=== PATIENT | female | born 1970 | race Caucasian/White ===

== ENCOUNTER 2016-03-27 10:50 | Emergency (ER) | payer OTHER ==
[~2016-03-27] VITALS: Ht 167.6 cm; Wt 75.0 kg
[~2016-03-27 10:50] MED LIST: ALBUAER19 INH; ARFO15NE NEB; FLUT1INH; IPRASOL34 INH; MEPO1INJ INJ; PRED20TA PO
[2016-03-27 10:57] VITALS: TEMP 36.9; Ht 167.6 cm; Wt 75.0 kg
[2016-03-27 11:08] VITALS: O2SAT 92
[2016-03-27] MEDS ORDERED: DEXAMETHASONE SOD INJ 10 MG/ML VIAL IM STA (11:23)
[2016-03-27] MEDS ORDERED: ALBUT/IPRATROP 3MG/0.5MG NEB 3 ML VIAL INH STA (11:23)
--- NOTE | 2016-03-27 11:34 | EMERGENCY ROOM VISIT NOTE ---
History First contact with patient: 11:11 Chief Complaint: RESPIRATORY PROBLEMS Stated Complaint: BREATHING History of Present Illness The patient is a 45 year old female who presents to the Emergency Room via private vehicle accompanied by with complaints of "breathing". The patient states that she has noticed since she has been receiving the nucala injection, which began in November for her asthma, she has experienced rebound asthmatic exacerbations 4 days status post injection. She states that in January 4 days after the injection she had to increase her prednisone to 60 mg daily to help control her asthma. She states she had the exact same reaction in February and this month, indicating she had the injection March 21 in [place]. She notes that she began to experience symptoms by Monday, which was 2 days ago. The other 2 exacerbations in January and February she was able to control by starting steroids immediately but this time decided to wait and now believe she needs a breathing treatment. She notes that she does not want any x -rays, imaging, lab work, IV, EKG or surveillance system monitor. She indicates that she is self-pay and believes she only needs the steroid injection and breathing treatment. She states she has had a thorough workup in the past which very expensive. She follows with Dr. Arzate and Dr. Philippe. She denies any hives , itching, throat swelling, chest pain or recent trauma. Review of Systems A complete 6-point Review of Systems was discussed with the patient, with pertinent positives and negatives listed in the History of Present Illness. All remaining Review of Systems questions can be considered negative unless otherwise specified. Past Medical/Surgical History Medical Problems: (1) ACUTE RESPIRATORY FAILURE (2) ASTHMA W STATUS ASTHMAT (3) Echocardiogram (4) FX DISTAL RADIUS NEC-CL (5) Pericardial effusion (6) Pneumonia (7) Tonsillectomy Family History No significant family history at this time. Social History Smoking Status: Never Smoker Alcohol Use: none Drug Use: none Marital Status: Housing Status: lives with family Occupation Status: other Current/Historical Medications Scheduled Arformoterol Tartrate (Brovana), 1 VIAL NEB BID Mepolizumab (Nucala), 100 MG INJ MONTHLY Prednisone (Prednisone), 1 TAB PO DAILY Scheduled PRN Ipratropium-Albuterol (Duoneb), 1 TREATMENT INH Q4H PRN for Shortness of Breath Allergies Coded Allergies: Azithromycin (Verified Adverse Reaction, Intermediate, RESTLESS; JITTERY, 03/27/16) HAS USED IT SINCE WITH NO REACTION Physical Exam Vital Signs Date Time Temp Pulse Resp B/P Pulse Ox O2 Delivery O2 Flow Rate FiO2 03/27/16 12:43 133 22 114/76 97 Room Air 03/27/16 11:37 91 16 90 Room Air 03/27/16 11:08 92 Room Air 03/27/16 11:08 92 Room Air 03/27/16 10:57 36.9 100 16 105/69 91 Room Air Physical Exam VITAL SIGNS - Vital signs and nursing notes were reviewed. Patient is afebrile , normotensive, heart rate of 100 bpm and is saturating on room air at 91%. GENERAL -45-year-old female appearing her stated age who is in no acute distress. Communicates well with provider and answers questions appropriately. SKIN - Without rashes. HEAD - NC/AT. MOUTH/OROPHARYNX - Without perioral cyanosis. LUNGS - Chest wall symmetric without accessory muscle use, intercostals retractions, or central cyanosis. There is wheezing noted bilaterally. No focal consolidation noted. There is moderate air exchange. CARDIAC - RRR with S1/S2. No murmur, rubs, or gallops appreciated. Medical Decision & Procedures Medications Administered Medications (Trade) Dose Ordered Sig/Fareed Route Start Time Stop Time Status Last Admin Dose Admin Albuterol/ Ipratropium (Duoneb) 12 ml ONE STAT INH 03/27/16 11:23 03/27/16 11:27 DC 03/27/16 11:37 12 ML Dexamethasone Sodium Phosphate (Decadron Inj) 10 mg NOW STAT IM 03/27/16 11:23 03/27/16 11:27 DC 03/27/16 11:31 10 MG Medical Decision Patient was seen and evaluated as above. Patient was very nice and noted that she would not like any imaging, lab work, IV, EKG or surveillance system monitor performed noting that she is self-pay and this had all this workup in the past. I fully informed her that we do all of those to look for life-threatening causes such as pulmonary embolism and heart causes among others. They verbalized understanding and noted that they would like the breathing treatment and perhaps a steroid injection instead of an IV. I felt this was reasonable as I had treated her before and found good result with the steroid and the breathing treatment. She was saturating in the low 90s and was given oxygen. She was given an hour-long DuoNeb treatment. She was found to be tachycardic but notes this happens every time she receives his treatment. Her oxygen saturation had increased. She was still on oxygen after the breathing treatment and I decreased this and noted that she was between 90 and 94% on room air. Patient states that she typically is at 94%. The patient states that she feels better since receiving treatment. Repeat auscultation reveals improvement of lung sounds. Patient seemed happy with plan of care felt stable for discharge. I do believe this is reasonable. She has ample supply of prednisone and rescue inhaler. She is to call Dr. Philippe, auctioneer art in [place] first thing tomorrow morning to schedule follow-up. This is where she receives injections of nucala. The patient was educated upon worrisome symptoms which to return, had questions answered prior to discharge and was discharged home in good condition. In the evaluation treatment this patient following differential diagnoses were entertained: Asthma exacerbation, COPD, pneumonia, bronchitis, influenza, pulmonary embolism, myocardial infarction, among others. Impression Primary Impression: Acute asthma exacerbation Departure Information Dispostion Home / Self-Care Condition GOOD Referrals Saud Tony MD (PCP) Patient Instructions My [facility] Additional Instructions You were seen in the emergency Department for an asthma exacerbation. You were given a DuoNeb treatment here. Please continue your regular prescribed medications. Please take the prednisone as we discussed. Please use your breathing treatment albuterol inhaler as prescribed. Please call your asthma specialist first thing tomorrow morning to schedule follow-up. Please return to the emergency department with any new/concerning symptoms. Problem Qualifiers Primary Impression: Acute asthma exacerbation Asthma severity: severe persistent Qualified Codes: J45.51 - Severe persistent asthma with (acute) exacerbation
[2016-03-27 11:37] VITALS: PULSE 91; O2SAT 90
[2016-03-27 12:43] VITALS: BP 114/76; PULSE 133; O2SAT 97
[2016-06-18] MEDS ORDERED: ZTHM250 PO (10:44)
== END 2016-03-27 13:50 | disposition home or self-care (01) ==
LOC: C.EDB 10:55
DX: J45.901 Unspecified asthma with (acute) exacerbation (principal); Z87.81 Personal history of (healed) traumatic fracture; Z79.899 Other long term (current) drug therapy; Z88.1 Allergy status to other antibiotic agents

== ENCOUNTER 2016-06-14 05:12 | Inpatient (IN) | payer OTHER ==
[~2016-06-14] VITALS: Ht 165.1 cm; Wt 65.3 kg
[2016-06-14] VITALS (21 sets, daily range): BP systolic 96–118; BP diastolic 59–78; PULSE 96–126; TEMP 36.5–36.7; O2SAT 92–100; Ht 165.1 cm; Wt 65.3 kg
[~2016-06-14 05:12] MED LIST changes: -ALBUAER19 INH; -FLUT1INH
[2016-06-14] MEDS ORDERED: ALBUT/IPRATROP 3MG/0.5MG NEB 3 ML VIAL INH ONE (05:30)
[2016-06-14] MEDS ORDERED: DEXAMETHASONE SOD INJ 4 MG/ML VIAL IM STA (05:30)
[2016-06-14] MEDS ORDERED: DEXAMETHASONE SOD INJ 10 MG/ML VIAL ONE (05:35)
[2016-06-14 07:40] LABS: COMPLETE YES; HEMATOCRIT 41.7 % (37-47); IG% 0.2 %; LYMPH % 9.6 %; LYMPH ABS # 0.55 K/uL (1.2-3.4); MEAN CELL VOLUME 82.7 fL (80-100); MEAN CORPUSCULAR HEMOGLOBIN 27.4 pg (25-34); MEAN CORPUSCULAR HGB CONC 33.1 g/dl (32-36); MEAN PLATELET VOLUME 10.5 fL (7.4-10.4); MONO % 0.9 %; NEUT % 89.3 %; PLATELET COUNT 242 K/uL (130-400); RED BLOOD COUNT 5.04 M/uL (4.2-5.4); WHITE BLOOD COUNT 5.73 K/uL (4.8-10.8)
[2016-06-14 07:54] LABS: ARTERIAL BLD GAS O2 SATURATION 95.1 % (90-95); ARTERIAL BLOOD GAS BASE EXCESS -0.6 mEq/L (-9-1.8); ARTERIAL BLOOD GAS HCO3 22 mmol/L (19-24); ARTERIAL BLOOD GAS PO2 74 mm/Hg (80-95); ARTERIAL BLOOD GAS pH 7.46 (7.35-7.45)
[2016-06-14 07:59] LABS: ALT/SGPT 23 U/L (12-78); AST/SGOT 7 U/L (15-37); BLOOD UREA NITROGEN 10 mg/dl (7-18); BUN/CREATININE RATIO 11.9 (10-20); CALCIUM 9.3 mg/dl (8.5-10.1); CARBON DIOXIDE 24 mmol/L (21-32); CHLORIDE 111 mmol/L (98-107); CREATININE 0.81 mg/dl (0.60-1.20); GLUCOSE 141 mg/dl (70-99); POTASSIUM 3.8 mmol/L (3.5-5.1); SODIUM 144 mmol/L (136-145)
[2016-06-14 08:02] LABS: ALLEN TEST POS (POS); O2 ADMINISTRATION 1.5L
[2016-06-14 08:04] LABS: ALB/GLOB RATIO 1.1 (0.9-2); ALKALINE PHOSPHATASE 42 U/L (45-117)
--- NOTE | 2016-06-14 08:09 | DIAGNOSTIC IMAGING REPORT ---
CHEST 2 VIEWS ROUTINE CLINICAL HISTORY: Shortness of breath. Asthma exacerbation. COMPARISON STUDY: Chest radiograph December 04, 2015. FINDINGS: Pectus excavatum deformity is again noted. There is no pneumothorax or pleural effusion. Cardiomediastinal silhouette is stable. There is no evidence of pulmonary edema. A 1.7 cm nodular density projects over the right lower lung. There are several old right rib fractures. IMPRESSION: 1. 1.7 cm nodular density projecting over the right lower lung. This could reflect summation artifact, minimal airspace disease, a pulmonary nodule or rib fracture. Follow-up PA and shallow oblique radiographs of the chest in one month are recommended to ensure resolution. 2. Otherwise, unchanged appearance of the chest. Electronically signed by: Michael Stack M.D. 06/14/2016 8:07 AM Dictated Date/Time: 06/14/2016 8:04 AM
[2016-06-14] MEDS ORDERED: ALUMINUM/MAGNESIUM/SIMETH (MAALOX MAX) 30 ML UDC PO PRN (09:00)
[2016-06-14] MEDS ORDERED: ONDANSETRON INJ 2 MG/ML 2 ML VIAL IV PRN (09:00)
[2016-06-14] MEDS ORDERED: ACETAMINOPHEN 325 MG TAB PO PRN (09:00)
[2016-06-14] MEDS ORDERED: MAGNESIUM HYDROXIDE SUSP 30 ML UDC PO PRN (09:00)
[2016-06-14] MEDS ORDERED: KETOROLAC TROMETHAMINE 15 MG/ML VIAL IV ONE (09:15)
--- NOTE | 2016-06-14 09:23 | History and Physical ---
History & Physical Date & Time of Service: June 14, 2016 at 09:17 Chief Complaint: Breazing Primary Care Physician: Saud Tony MD History of Present Illness Source: patient, spouse Ms. Erazo is a 46 y/o female with PMHx of Severe Uncontrolled Asthma and Allergic Rhinitis who presents to the ED c/o SOB that started yesterday. She reports on Monday she developed nasal congestion and sneezing. She states her allergic rhinitis is a common culprit for her asthma exacerbations. As the symptoms progressed, her shortness of breath intensified. The shortness of breath was worse yesterday and she got no relief with multiple uses of inhalers , nebulizers, and 80 mg of prednisone. She reports associated auditory wheezing. Also complains of a cough that is largely unproductive. Occasionally will get thick green sputum but this is rare. Associated pleuritic chest pain that is common with her asthma exacerbations but is more uncomfortable at this time. She reports her last asthma exacerbation was approximately 1-1/2 weeks ago however this responded to her home medications. She follows with Dr. Tony and reports 3 bronchoscopies in the past 4 years. To her knowledge no abnormal findings seen on these procedures. Her last bronchoscopy was in January 2016. She has never required intubation with her asthma exacerbations. She reports a long history of uncontrolled asthma with multiple medication trials. She feels that nothing has completely helped her asthma long-term. Has recently stopped Nucala as she reports an allergic reaction requiring hospitalization in [place]. In the ED, she received Decadron 10 mg 1 and DuoNeb nebulizer with reported no relief. She was initially saturating on room air adequately with one reading at 88 which responded to 2 L nasal cannula. She is tachycardic with EKG reading normal sinus rhythm. Respirations ranging from 20-28. ABG suggest respiratory alkalosis with a pH of 7.46, PCO2 32, and HCO3 22. CXR is unremarkable for consolidation. Due to no response with steroids and breathing treatment she will be placed in the ICU at this time. Past Medical/Surgical History Medical Problems: (1) Acute respiratory failure Status: Resolved (2) ASTHMA W STATUS ASTHMAT Status: Chronic (3) Echocardiogram Status: Resolved (4) FX DISTAL RADIUS NEC-CL Status: Resolved (5) Pericardial effusion Status: Chronic (6) Pneumonia Status: Chronic (7) Tonsillectomy Status: Resolved Family History Diabetes mellitus Heart Disease Social History Smoking Status: Never Smoker Smokeless Tobacco Use: No Alcohol Use: none Drug Use: none Marital Status: Housing status: lives with significant other Occupational Status: other Immunizations History of Influenza Vaccine: No History of Tetanus Vaccine?: 2WKS History of Pneumococcal: No History of Hepatitis B Vaccine: No Multi-Drug Resistant Organisms History of MDRO: No Allergies Coded Allergies: Eggs or Egg-derived Products (Verified Allergy, Severe, Allergy testing with high reactivity in 2012, 06/14/16) Patient notes that she eats eggs Mepolizumab (Verified Allergy, Severe, Hives / paroxysmal bronchospasm, 06/14/16) Lactose (Verified Allergy, Mild, Allergy testing in 2012, 06/14/16) Patient avoids dairy products Mouse Protein (Verified Allergy, Unknown, RESPIRATORY DISTRESS, 06/14/16) Sorbitan (Verified Allergy, Unknown, RESPIRATORY DISTRESS, 06/14/16) Home Medications Scheduled Arformoterol Tartrate (Brovana), 1 VIAL NEB BID Prednisone (Prednisone), 1 TAB PO DAILY Scheduled PRN Ipratropium-Albuterol (Duoneb), 1 TREATMENT INH Q4H PRN for Shortness of Breath Review of Systems Constitutional: + chills, + fatigue, No fever Eyes: No worsening of vision ENT: + nasal symptoms, No sore throat, No trouble swallowing Respiratory: + cough, + shortness of breath, + sputum (rare but intermittently productive of green sputum), + wheezing Cardiovascular: + chest pain Abdomen: No constipation, No diarrhea, No nausea, No pain, No vomiting Musculoskeletal: No calf pain, No joint pain, No swelling Genitourinary - Female: No dysuria Hematologic / Lymphatic: No abnormal bleeding/bruising, No clotting problems Integumentary: No rash Physical Exam Vital Signs Date Time Temp Pulse Resp B/P Pulse Ox O2 Delivery O2 Flow Rate FiO2 06/14/16 08:20 94 Nasal Cannula 2.0 06/14/16 08:06 119 20 95/55 94 Nasal Cannula 2.0 06/14/16 07:12 123 111/64 88 Room Air 06/14/16 06:44 147 28 111/64 95 Room Air 06/14/16 05:39 109 16 92 Room Air 06/14/16 05:35 102 06/14/16 05:30 93 Room Air 06/14/16 05:27 93 Room Air 06/14/16 05:20 36.7 100 22 97/69 92 Room Air General Appearance: WD/WN, + mild distress (anxious appearing; ill-appearing) Head: normocephalic, atraumatic Eyes: sclerae normal ENT: hearing grossly normal Neck: supple, no JVD, trachea midline Respiratory/Chest: no respiratory distress, no accessory muscle use, + wheezing (inspiratory and expiratory) Cardiovascular: no gallop, no murmur, + tachycardia Abdomen/GI: normal bowel sounds, non tender, soft Back: no CVA tenderness, + pertinent finding (superficial scratch-like lacerations to upper back) Extremities/Musculoskelatal: no calf tenderness, no pedal edema Neurologic/Psych: alert, oriented x 3 Skin: normal color, warm/dry, + pallor Diagnostics Laboratory Results Results Past 24 Hours Test 06/14/16 07:25 06/14/16 07:30 Range/Units Arterial Blood pH 7.46 7.35-7.45 Arterial Blood Partial Pressure CO2 32 35-46 mmHg Arterial Blood Partial Pressure O2 74 80-95 mm/Hg Arterial Blood HCO3 22 19-24 mmol/L Arterial Blood Oxygen Saturation 95.1 90-95 % Arterial Blood Base Excess -0.6 -9-1.8 mEq/L Arterial Blood Gas Delivery 1.5L Km Test POS POS White Blood Count 5.73 4.8-10.8 K/uL Red Blood Count 5.04 4.2-5.4 M/uL Hemoglobin 13.8 12.0-16.0 g/dL Hematocrit 41.7 37-47 % Mean Corpuscular Volume 82.7 80-100 fL Mean Corpuscular Hemoglobin 27.4 25-34 pg Mean Corpuscular Hemoglobin Concent 33.1 32-36 g/dl Platelet Count 242 130-400 K/uL Mean Platelet Volume 10.5 7.4-10.4 fL Neutrophils (%) (Auto) 89.3 % Lymphocytes (%) (Auto) 9.6 % Monocytes (%) (Auto) 0.9 % Eosinophils (%) (Auto) 0.0 % Basophils (%) (Auto) 0.0 % Neutrophils # (Auto) 5.12 1.4-6.5 K/uL Lymphocytes # (Auto) 0.55 1.2-3.4 K/uL Monocytes # (Auto) 0.05 0.11-0.59 K/uL Eosinophils # (Auto) 0.00 0-0.5 K/uL Basophils # (Auto) 0.00 0-0.2 K/uL RDW Standard Deviation 46.5 36.4-46.3 fL RDW Coefficient of Variation 15.3 11.5-14.5 % Immature Granulocyte % (Auto) 0.2 % Immature Granulocyte # (Auto) 0.01 0.00-0.02 K/uL Sodium Level 144 136-145 mmol/L Potassium Level 3.8 3.5-5.1 mmol/L Chloride Level 111 98-107 mmol/L Carbon Dioxide Level 24 21-32 mmol/L Anion Gap 9.0 3-11 mmol/L Blood Urea Nitrogen 10 7-18 mg/dl Creatinine 0.81 0.60-1.20 mg/dl Estimated GFR () 101.7 Estimated GFR (Non- 87.7 BUN/Creatinine Ratio 11.9 10-20 Random Glucose 141 70-99 mg/dl Calcium Level 9.3 8.5-10.1 mg/dl Total Bilirubin 0.5 0.2-1 mg/dl Aspartate Amino Transf (AST/SGOT) 7 15-37 U/L Alanine Aminotransferase (ALT/SGPT) 23 12-78 U/L Alkaline Phosphatase 42 45-117 U/L Troponin I < 0.015 0-0.045 ng/ml Total Protein 7.5 6.4-8.2 gm/dl Albumin 4.0 3.4-5.0 gm/dl Globulin 3.5 2.5-4.0 gm/dl Albumin/Globulin Ratio 1.1 0.9-2 Diagnostic Radiology CHEST 2 VIEWS ROUTINE CLINICAL HISTORY: Shortness of breath. Asthma exacerbation. COMPARISON STUDY: Chest radiograph December 04, 2015. FINDINGS: Pectus excavatum deformity is again noted. There is no pneumothorax or pleural effusion. Cardiomediastinal silhouette is stable. There is no evidence of pulmonary edema. A 1.7 cm nodular density projects over the right lower lung. There are several old right rib fractures. IMPRESSION: 1. 1.7 cm nodular density projecting over the right lower lung. This could reflect summation artifact, minimal airspace disease, a pulmonary nodule or rib fracture. Follow-up PA and shallow oblique radiographs of the chest in one month are recommended to ensure resolution. 2. Otherwise, unchanged appearance of the chest. EKG Sinus tachycardia Biatrial enlargement Rightward axis Possible Inferior infarct , age undetermined Cannot rule out Anterior infarct , age undetermined Abnormal ECG When compared with ECG of 04-DEC-2015 12:24, No significant change was found Impression Assessment and Plan Ms. Erazo is a 46 y/o female with PMHx of Severe Uncontrolled Asthma and Allergic Rhinitis who presents to the ED c/o SOB that started yesterday. She appears in respiratory alkalosis from asthma exacerbation Acute Respiratory Failure due to Asthma Exacerbation: Never Required Intubation in the Past for Exacerbations - Reporting no relief with Decadron 10 mg and Duonebs - ABG appears to have respiratory alkalosis - pH 7.46, pCO2 32, and HCO3 22 - CT Chest R/O PE - unlikely PE but pleuritic chest pain increased than normal with exacerbations as well can better visualize lung degroot - Will obtain another troponin to R/O cardiac component - Decadron 8 mg IV Q8H - Toradol 15 mg IV x 1 dose for pleuritic CP - Xopenex and Atrovent Q6H and Q2H - as patient is tachycardic - Hold home medications at this time during asthma exacerbation - Consult [employer] - appreciate co-management - discussed with Parish Caro PA-C - as she responds to treatment can transfer in house - Consult Pulmonology - discussed case with Mor Lindsey PA-C - patient follows with Dr. Tony DVT Prophylaxis: Lovenox 40 mg SC daily; REGAN/SCDs Code Status: FULL RESUSCITATION Level of Care Critical Care Advanced Directives Existing Living Will: No Existing Power of It Programmer: No Resuscitation Status FULL RESUSCITATION VTE Prophylaxis VTE Risk Assessment Done? Y/N: Yes Risk Level: Moderate Given or contraindicated: Enoxaparin (Lovenox)SQ, T.E.D. Stockings, SCD's
[2016-06-14] MEDS ORDERED: KETOROLAC TROMETHAMINE 30 MG/ML VIAL ONE (09:35)
[2016-06-14] MEDS ORDERED: KETOROLAC TROMETHAMINE 15 MG/ML VIAL IV PRN (09:45)
[2016-06-14] MEDS: LEVALBUTEROL 1.25MG/0.5ML NEB INH SCH ×3 (09:46→19:23)
[2016-06-14] MEDS: IPRATROPIUM BROMIDE NEB SOLN 0.02% 2.5 ML VIAL INH SCH ×3 (09:46→19:23)
--- NOTE | 2016-06-14 10:49 | DIAGNOSTIC IMAGING REPORT ---
CT ANGIOGRAPHY OF THE CHEST, PULMONARY EMBOLUS PROTOCOL CLINICAL HISTORY: Pleuritic chest pain, tachycardia and hypoxia. COMPARISON STUDY: Chest CT September 03, 2012. TECHNIQUE: Following IV administration of 103 mL of [id number]-[id number], helical axial images of the chest were obtained utilizing the pulmonary embolus protocol. Maximal intensity projections and sagittal and coronal reformats were viewed on an independent 3D workstation. IV contrast was administered without complication. CT DOSE: 215.19 mGy.cm FINDINGS: No pulmonary emboli are identified although the segmental and subsegmental vessels are suboptimally assessed due to respiratory motion. The size of the heart is normal. There is no pericardial effusion. There is no evidence of thoracic aortic dissection. Pectus excavatum deformity is present. Note is made of a subtle 2.5 cm groundglass opacity within the right upper lobe. There is mild multifocal mucus plugging. Lingular opacity reflect atelectasis or scarring. The bony thorax is otherwise unremarkable. Upper abdomen is unremarkable. IMPRESSION: 1. No pulmonary emboli identified although the segmental and subsegmental vessels suboptimal assessed due to respiratory motion. 2. Minimal groundglass opacity within the right upper lobe which favors a mild infectious process. A follow-up chest CT in 2 months to ensure resolution is recommended. 3. Minimal multifocal mucus plugging. Electronically signed by: Michael Stack M.D. 06/14/2016 10:48 AM Dictated Date/Time: 06/14/2016 10:38 AM
[2016-06-14] MEDS ORDERED: MoRPHine SULFATE 2 MG/ML CARP ONE (11:40)
[2016-06-14] MEDS ORDERED: MoRPHine SULFATE 2 MG/ML CARP IV ONE (11:45)
[2016-06-14] MEDS ORDERED: [UNRECOGNIZED DRUG - REMARK] SCH (12:00)
[2016-06-14 13:11] LABS: PARTIAL THROMBOPLASTIN RATIO 0.9; PROTHROMBIN TIME (PATIENT) 10.8 SECONDS (9.0-12.0)
[2016-06-14] MEDS: SODIUM CHLORIDE 0.9% 1000ML 1,000 ML IV SCH ×2 (14:03→19:10)
[2016-06-14] MEDS: DEXAMETHASONE INJ 8 MG in SYRINGE 0 ML IV SCH ×2 (14:03→21:37)
[2016-06-14] MEDS: MAGNESIUM SULFATE 1GM / D5W 1 GM in PREMIXED IN D5W 100 ML IV SCH ×2 (14:09→15:16)
[2016-06-14] MEDS ORDERED: MAGNESIUM SULFATE 1GM / D5W 1 GM in PREMIXED IN D5W 100 ML IV STA ×2 (14:30→17:12)
[2016-06-14] MEDS: ENOXAPARIN 40 MG/0.4 ML SYR SQ SCH (15:19)
[2016-06-14] MEDS ORDERED: PANTOprazole SOD 40 MG TAB PO ONE (16:21)
--- NOTE | 2016-06-14 16:21 | Critical Care Consultation ---
Critical Care Consultation Date of Consultation: June 14, 2016. Attending Physician: Kira Monreal M.D. Reason for Consultation: Asthma exacerbation History of Present Illness Attending: Dr. Matt Is a 46-year-old female that presents with shortness of breath and asthma exacerbation. She has a previous history of asthma and hospitalization for exacerbation. She has never had to be intubated in the past. She previously followed with Dr. Guidry for pulmonary as well as for allergy and has had PFTs as well as allergy testing. Scratch testing for environmental allergies was primarily negative. The patient does have a significant number of food allergies. She has high reactivity to Kena albicans, cheese, egg whites, egg yolk, casein, brewers yeast, Bakers yeast. She has moderate reactivity to asparagus, coffee, grapes, salmon, honey, sorghum , yogurt, mozzarella cheese, garlic, pears, millet, whey. She has low reactivity to beef, rice, Soriatane, turkey, no, flax, spinach, chicken, pineapple, helmet, lemon, tomato him a peanut, peas, garbanzo beans, cranberry Pulmonary function testing performed by Dr. Guidry in 2012 revealed moderate obstructive disease with no specific restrictive disease. Pulmonary function testing with Dr. Kaufman in 2013 revealed mild obstructive disease with no specific restrictive disease. The patient also follows a [facility] in [place] with Dr. Stevenson. Records have been requested The patient reports that she began noticing increased sensitivity last Monday after cleaning out a kennel and being exposed to dust. She reports that things get worse on Monday when she attended her restorationism service which is held in the basement of a building where there is mold and it is damp. She tends to have more exacerbation seasonally. She is not on Singulair any longer although this was never discontinued by her providers. She continued with albuterol HFA as well as duo nebs at home. The patient is old order [employer]. They do have gravity fed water from a spring. They did not have consistent electricity. The nebulizers were drawn with a power invertor from a battery. They do state that in the summer when things are bad they do have permission to run a generator with an air conditioner in the bedroom. Heat sources a wood fired cooks stove in the home and a coal fired stove in the washroom. She did notice exacerbation with dust when she cleaned out the dust melendez of the stove. The patient has seven children. One child had asthma but has grown out of that. No other family history of asthma or pulmonary disease. The patient has a history of prior bronchoscopy on more than one occasion. No pathology for malignancy. No infectious pathology. Positive for inflammatory cells. The patient did have positive IgE as well as history of eosinophilia in the past. IgG and IgM was negative. Patient was also negative for cytomegalovirus, AFB. PFTs: SUPRIYA Dominguez 01/14/13 - Dr. Kaufman FVC 3.35/4.25/127%/127% FEV1 2.81/3.15/112%/3.35/119% FEV1/FVC 85/74/79 TLC 5.05/6.06/120 RV 1.67/1.81/108 DLCO 24.8/22.1/89% DLCO VA 4.27/4.1/96% Past Medical/Surgical History MEDICAL PROBLEMS: Acute respiratory failure ASTHMA W STATUS ASTHMAT FX DISTAL RADIUS NEC-CL Pericardial effusion Pneumonia Tonsillectomy PAST SURGICAL HISTORY: Echocardiogram Bronchoscopy PFTs Allergy testing Family History Diabetes mellitus Heart Disease No history of pulmonary disease. No history of cardiac disease Social History Smoking Status: Never Smoker Smokeless Tobacco Use: No Alcohol Use: none Drug Use: none Marital Status: Housing Status: lives with family Occupation Status: other (homemaker) Allergies Coded Allergies: Mepolizumab (Verified Allergy, Severe, Hives / paroxysmal bronchospasm, 06/14/16) Mouse Protein (Verified Allergy, Unknown, RESPIRATORY DISTRESS, 06/14/16) Sorbitan (Verified Allergy, Unknown, RESPIRATORY DISTRESS, 06/14/16) Home Medications Scheduled Arformoterol Tartrate (Brovana), 1 VIAL NEB BID Prednisone (Prednisone), 1 TAB PO DAILY Scheduled PRN Ipratropium-Albuterol (Duoneb), 1 TREATMENT INH Q4H PRN for Shortness of Breath Current Inpatient Medications Current Inpatient Medications Medications (Trade) Dose Ordered Sig/Fareed Route Start Time Stop Time Status Last Admin Dose Admin Enoxaparin Sodium 40 mg 40 mg DAILY@1600 SQ 06/14/16 16:00 07/14/16 15:59 06/14/16 15:19 40 MG Sodium Chloride (Nss 1000ml) 1,000 ml @ 100 mls/hr Q10H IV 06/14/16 08:50 07/14/16 08:49 06/14/16 14:03 100 MLS/HR Acetaminophen (Tylenol Tab) 650 mg Q4H PRN PO 06/14/16 09:00 07/14/16 08:59 Al Hydrox/Mg Hydrox/Simethicone (Maalox Max Susp) 15 ml Q4H PRN PO 06/14/16 09:00 07/14/16 08:59 Magnesium Hydroxide (Milk Of Magnesia Susp) 30 ml Q12H PRN PO 06/14/16 09:00 07/14/16 08:59 Ondansetron HCl (Zofran Inj) 4 mg Q6H PRN IV 06/14/16 09:00 07/14/16 08:59 Levalbuterol 1.25 mg 1.25 mg Q6R INH 06/14/16 09:00 07/14/16 08:59 06/14/16 13:43 1.25 MG Dexamethasone Sodium Phosphate/ Syringe (Decadron Inj/ Syringe) 2 ml @ 1 mls/min Q8H IV 06/14/16 14:00 07/14/16 13:59 06/14/16 14:03 1 MLS/MIN Levalbuterol (Xopenex 1.25MG/ 3ML Neb) 1.25 mg Q2H PRN INH 06/14/16 09:15 07/14/16 09:14 Ipratropium [place] (Atrovent 0.02% 0.5MG/2.5ML Neb) 0.5 mg Q6R INH 06/14/16 09:00 07/14/16 08:59 06/14/16 13:43 0.5 MG Ketorolac Tromethamine 15 mg 15 mg Q6H PRN IV 06/14/16 09:45 06/19/16 09:44 Magnesium Sulfate/ Prmx (Magnesium Sulfate/Premixed D5W) 100 ml @ 100 mls/hr TODAY@1400,1500 IV 06/14/16 14:00 06/14/16 15:59 06/14/16 15:16 100 MLS/HR Diphenhydramine HCl 25 mg 25 mg QID PRN PO 06/14/16 13:45 07/14/16 13:44 06/14/16 15:16 25 MG Magnesium Sulfate/ Prmx (Magnesium Sulfate/Premixed D5W) 100 ml @ 100 mls/hr NOW STAT IV 06/14/16 14:30 06/14/16 15:29 UNV Review of Systems A total of 12 systems was reviewed and is negative other than as listed above in the HPI Physical Exam Date Time Temp Pulse Resp B/P Pulse Ox O2 Delivery O2 Flow Rate FiO2 06/14/16 14:00 124 19 96/71 97 4.0 06/14/16 13:45 115 16 93 Nasal Cannula 4.0 06/14/16 12:00 98 Nasal Cannula 4.0 06/14/16 12:00 36.5 98 21 118/59 97 4.0 06/14/16 11:00 123 25 109/63 97 4.0 06/14/16 10:43 36.5 126 27 113/65 96 4.0 06/14/16 10:11 129 22 101/77 94 Nasal Cannula 2.0 06/14/16 09:46 118 16 94 Nasal Cannula 2.0 06/14/16 09:46 116 22 127/71 93 Nasal Cannula 2.0 06/14/16 08:20 94 Nasal Cannula 2.0 06/14/16 08:06 119 20 95/55 94 Nasal Cannula 2.0 06/14/16 07:12 123 111/64 88 Room Air 06/14/16 06:44 147 28 111/64 95 Room Air 06/14/16 05:39 109 16 92 Room Air 06/14/16 05:35 102 06/14/16 05:30 93 Room Air 06/14/16 05:27 93 Room Air 06/14/16 05:20 36.7 100 22 97/69 92 Room Air GENERAL : Moderate pulmonary distress. Sitting up in bed. EYES: No icterus, gaze conjugate. Pupils equal and reactive to light NOSE: No evidence of epistaxis. Nasal cannula in place MOUTH: No lesions or candidiasis. Mucosa moist. Upper and lower dentures since age 17 NECK: Supple. No carotid bruits or appreciation of stridor LUNGS: Diffuse bronchospasm. No appreciation of fremitus. Breath sounds equal throughout but very tight HEART: Regular, tachycardic in the 120s ABDOMEN: Soft, NT, ND, BS Present. No rebound tenderness or guarding. EXTREMITIES: No LE edema, pedal pulses intact. No calf tenderness or Homans sign. NEURO: A&OX3. CHEST: No use of accessory muscles. No reproducible pain with palpation. No paradoxical movement of chest wall. Laboratory Results Last 24 Hours Test 06/14/16 07:25 06/14/16 07:30 06/14/16 12:48 Arterial Blood pH 7.46 Arterial Blood Partial Pressure CO2 32 mmHg Arterial Blood Partial Pressure O2 74 mm/Hg Arterial Blood HCO3 22 mmol/L Arterial Blood Oxygen Saturation 95.1 % Arterial Blood Base Excess -0.6 mEq/L Arterial Blood Gas Delivery 1.5L Km Test POS White Blood Count 5.73 K/uL Red Blood Count 5.04 M/uL Hemoglobin 13.8 g/dL Hematocrit 41.7 % Mean Corpuscular Volume 82.7 fL Mean Corpuscular Hemoglobin 27.4 pg Mean Corpuscular Hemoglobin Concent 33.1 g/dl Platelet Count 242 K/uL Mean Platelet Volume 10.5 fL Neutrophils (%) (Auto) 89.3 % Lymphocytes (%) (Auto) 9.6 % Monocytes (%) (Auto) 0.9 % Eosinophils (%) (Auto) 0.0 % Basophils (%) (Auto) 0.0 % Neutrophils # (Auto) 5.12 K/uL Lymphocytes # (Auto) 0.55 K/uL Monocytes # (Auto) 0.05 K/uL Eosinophils # (Auto) 0.00 K/uL Basophils # (Auto) 0.00 K/uL RDW Standard Deviation 46.5 fL RDW Coefficient of Variation 15.3 % Immature Granulocyte % (Auto) 0.2 % Immature Granulocyte # (Auto) 0.01 K/uL Sodium Level 144 mmol/L Potassium Level 3.8 mmol/L Chloride Level 111 mmol/L Carbon Dioxide Level 24 mmol/L Anion Gap 9.0 mmol/L Blood Urea Nitrogen 10 mg/dl Creatinine 0.81 mg/dl Estimated GFR () 101.7 Estimated GFR (Non- 87.7 BUN/Creatinine Ratio 11.9 Random Glucose 141 mg/dl Calcium Level 9.3 mg/dl Total Bilirubin 0.5 mg/dl Aspartate Amino Transf (AST/SGOT) 7 U/L Alanine Aminotransferase (ALT/SGPT) 23 U/L Alkaline Phosphatase 42 U/L Troponin I < 0.015 ng/ml < 0.015 ng/ml Total Protein 7.5 gm/dl Albumin 4.0 gm/dl Globulin 3.5 gm/dl Albumin/Globulin Ratio 1.1 Prothrombin Time 10.8 SECONDS Prothromb Time International Ratio 1.0 Activated Partial Thromboplast Time 23.9 SECONDS Partial Thromboplastin Ratio 0.9 Magnesium Level 2.4 mg/dl Total Creatine Kinase 42 U/L Creatine Kinase MB < 0.5 ng/ml Creatine Kinase MB Ratio Diagnostic Results CT ANGIOGRAPHY OF THE CHEST, PULMONARY EMBOLUS PROTOCOL CLINICAL HISTORY: Pleuritic chest pain, tachycardia and hypoxia. COMPARISON STUDY: Chest CT September 03, 2012. TECHNIQUE: Following IV administration of 103 mL of Optiray-320, helical axial images of the chest were obtained utilizing the pulmonary embolus protocol. Maximal intensity projections and sagittal and coronal reformats were viewed on an independent 3D workstation. IV contrast was administered without complication. CT DOSE: 215.19 mGy.cm FINDINGS: No pulmonary emboli are identified although the segmental and subsegmental vessels are suboptimally assessed due to respiratory motion. The size of the heart is normal. There is no pericardial effusion. There is no evidence of thoracic aortic dissection. Pectus excavatum deformity is present. Note is made of a subtle 2.5 cm groundglass opacity within the right upper lobe. There is mild multifocal mucus plugging. Lingular opacity reflect atelectasis or scarring. The bony thorax is otherwise unremarkable. Upper abdomen is unremarkable. IMPRESSION: 1. No pulmonary emboli identified although the segmental and subsegmental vessels suboptimal assessed due to respiratory motion. 2. Minimal groundglass opacity within the right upper lobe which favors a mild infectious process. A follow-up chest CT in 2 months to ensure resolution is recommended. 3. Minimal multifocal mucus plugging. Electronically signed by: Michael Stack M.D. 06/14/2016 10:48 AM CHEST 2 VIEWS ROUTINE CLINICAL HISTORY: Shortness of breath. Asthma exacerbation. COMPARISON STUDY: Chest radiograph December 04, 2015. FINDINGS: Pectus excavatum deformity is again noted. There is no pneumothorax or pleural effusion. Cardiomediastinal silhouette is stable. There is no evidence of pulmonary edema. A 1.7 cm nodular density projects over the right lower lung. There are several old right rib fractures. IMPRESSION: 1. 1.7 cm nodular density projecting over the right lower lung. This could reflect summation artifact, minimal airspace disease, a pulmonary nodule or rib fracture. Follow-up PA and shallow oblique radiographs of the chest in one month are recommended to ensure resolution. 2. Otherwise, unchanged appearance of the chest. Electronically signed by: Michael Stack M.D. 06/14/2016 8:07 AM Assessment & Plan ASTHMA EXACERBATION Patient with moderate distress Received 80 mg of by mouth as of yesterday. Repeated dose of 80 mg this morning at home. Given 10 mg of Decadron in the emergency room today Nebulizer treatments ABG: PH 7.46, PCO2 32, PCO2 74, HCO3 22 Continue with high-dose steroids and oxygen supplementation to titrate O2 above 90% Continue with nebulizer treatments Check peak flows every shift Continue to monitor in ICU until peak flow improves Magnesium infusion 2 g IV now. Consider resuming Singulair and antihistamine Pulmonary consulted. Appreciate Dr. Viera's input PULMONARY NODULE 2.5 cm groundglass opacity in the right upper lobe This is most likely reactive but should have CT follow-up in one month to clear ID No leukocytosis No eosinophils on differential No fever No sputum production MRSA screening negative for DNA probe RENAL BUN 10 Creatinine 0.81 GFR 87.7 ELECTROLYTES Balanced Magnesium 2.4 CARDIAC Nonspecific chest pain secondary to cough Cardiac enzymes negative EKG was sinus tachycardia with biatrial enlargement - repeat EKG in the morning and with chest pain Hemodynamically stable IV ACCESS No indication for central line Continue peripheral access GI PROPHYLAXIS Patient high dose steroids and Toradol Start Pantoprazole 40 mg daily DVT PROPHYLAXIS Enoxaparin Activity as tolerated NEURO Alert and oriented 3 No focal deficits on exam NUTRITION Diet as tolerated recognizing food allergies CCT: 0 minutes. Level III inpatient consult Thank you for including us in the care of this patient. Please refer to Dr. Matt's addendum for further recommendations. I have personally evaluated and examined this patient. I agree with assessment and plan of E. Kroner PA-C. Patient critical ill due to status asthmaticus with peak flow 20% of expected ( 100 mL expected 475) despite nebulizers x3. ABG revealed respiratory alkalosis. Required IV magnesium. I have personally spent 40 minutes of critical care time in the direct management of this patient. This is a life/limb threatening event. This includes time spent evaluating patient, direct bedside care, chart review, placing orders, interpretation of diagnostic studies, discussion with consultants, patient, and family members, as well as other required patient management activities. This time is exclusive of all separately billable procedures, and teaching time and separate from and in addition to any other critical care service time.
[2016-06-14] MEDS: LEVALBUTEROL 1.25MG/3ML NEB INH PRN ×2 (16:55→20:07)
[2016-06-14] MEDS ORDERED: LORAZEPAM 2 MG/ML 1 ML VIAL IV STA (20:31)
[2016-06-14] MEDS ORDERED: MAGNESIUM SULFATE 1GM / D5W 1 GM in PREMIXED IN D5W 100 ML IV ONE (21:00)
[2016-06-14] MEDS ORDERED: COUGH DROP (SUGAR FREE) LOZ 24 LOZ/1 BOX ONE (21:39)
--- NOTE | 2016-06-14 22:23 | PULMONARY CONSULTATION ---
DATE OF CONSULTATION: 06/14/2016 TIME: 4:50 p.m. HISTORY OF PRESENT ILLNESS: The patient was seen in room #108 in the intensive care unit. She is a 46-year-old female with a history of bronchial asthma. This began approximately 4 years ago or so. Her asthma has been severe. She has had more than 10 hospitalizations for asthma. She has been on numerous medications over the years with marginal benefit. She is steroid dependent. She has been on prednisone daily for a couple of years. She has been adjusting her daily dose of prednisone according to how she feels. She had previously been treated with Xolair. It did not seem like it was helping all that much. In the past few months, she was started on Nucala. She had a total of 6 treatments with Nucala. After a while, it became clear that about the fourth day after getting her treatment, she would have severe bronchospasm and would need increased prednisone. She was actually admitted to the hospital in [place] after one of these episodes. Ultimately, her doctors decided not to give her more Nucala. She was being seen by an school age program associate. Most recently, she developed nasal congestion and sneezing on June 11. On the , she did not feel good. She states her mu-ism had services in the basement and she thought perhaps that had something to do with it. She progressed with wheezing and tightness. She came to our Emergency Room in the residential leasing manager hours today. She was given some IM steroids as well as an hour long respiratory treatment which usually helps her. She did not improve with this. Her peak flow was only 110. She was then subsequently admitted. She feels a little better this afternoon. She is not as tight, but she is still quite tight. The patient is not having any chest pain. She has a dry cough. She is not expectorating any phlegm. She is not having chills, fevers or sweats. The patient is limited at home as to how much as she can do. She states as time goes on the exacerbations lasts longer and she is less responsive to the steroids. She has been taking the Brovana b.i.d. and albuterol/ipratropium as needed. She adjusts her prednisone daily. [place] She has noticed that when they spray the manure on the field, she is worse for a while. She also is more symptomatic when they spray the degroot with some weed killers. She has horses at home. Usually if she is around horses, she is in a covered cab. She also has a dog, but does not think she is sensitive to the dog. She did have allergy testing several years ago and apparently was not allergic to hardly anything. SOCIAL HISTORY: The patient has never smoked. She does not drink alcohol. ALLERGIES: INCLUDE AZITHROMYCIN, MEPOLIZUMAB, MOUSE PROTEIN, AND SORBITAN. FAMILY HISTORY: No one in her family that she is aware of has asthma. This would include her parents or her children. The family history was positive for diabetes and heart disease. PAST SURGICAL HISTORY: Includes tonsillectomy as well as bronchoscopy type 3. PAST MEDICAL HISTORY: Includes status asthma as noted, fracture of the distal radius, and pericardial effusion. REVIEW OF SYSTEMS: The patient's energy level is fair. She is not able to do anything strenuous. She is markedly limited as to how far she can walk. Her symptoms are typically worse in the spring. She has a history of reflux, although she is not noticing any reflux symptoms currently. She used to be on reflux medicines. She denies any bowel or urinary complaints. Ten systems were reviewed. PHYSICAL EXAMINATION: GENERAL: The patient is a pleasant 46-year-old female who was cooperative, alert and oriented. She was in no distress at rest. However, she was much tighter than she looked. VITAL SIGNS: She has been afebrile. Current temperature 36.7. Blood pressure is 106/61. Oxygen saturation is 99% on 4 liters. HEENT: Pupils were reactive to light. Nares were clear. Mouth exam showed dentures, but was otherwise negative. NECK: Palpation of the neck reveals no lymph nodes. LUNGS: The lung degroot are tight. She has wheezes heard on inspiration and expiration. ABDOMEN: Soft. Bowel sounds were normal. There was no tenderness to palpation, masses, organomegaly. EXTREMITIES: Showed no cyanosis, clubbing or edema. LABORATORY DATA: White count is 5.73. Hemoglobin is 13.8 with hematocrit 41.7. Platelets are 242,000. There was no eosinophils seen. INR was 1 and PTT was 23.9. Blood gas showed a pH of 7.46 with a pCO2 of 32 and a pO2 of 74 done on 1.5 liter nasal cannula. Electrolytes show sodium 144, potassium 3.8, chloride 111, bicarb 24. BUN was 10 with a creatinine of 0.81. Blood sugar was 141. AST was 7, ALT 23 and alkaline phosphatase 42. IMPRESSION: 1. Status asthmaticus. 2. Pectus excavatum. 3. Ground-glass nodules seen in the right upper lobe measuring 2.5 cm - seen on CAT scan. 4. Gastroesophageal reflux disease by history. COMMENTS AND RECOMMENDATIONS: The patient has been on numerous inhaled steroids over time. This includes Advair, Symbicort, Breo Ellipta, and Pulmicort. She is convinced that they do not help and they may make her tight. She has been on Brovana. She is currently getting nebulizer treatments at approximately every 4 hours and thus I would hold off on the Brovana, currently. She did receive a dose of magnesium this morning. She is on dexamethasone which she is getting every 8 hours. I personally prefer methylprednisolone, but the dexamethasone can be given. She is on levalbuterol and ipratropium, which I am told they are changing to every 4 hours. I am not certain if she has had a trial of montelukast in the past, but I suspect she has. I have suggested to the patient that when she is discharged, she keep a daily log of her peak flows. This may be helpful in trying to determine certain medications work or do not work. As she gets better, I still think she should be given a trial of inhaled steroid. She has been on high doses of prednisone ranging from 20-60 mg per day. Hopefully, this would allow her to taper the prednisone. She is obviously a very difficult asthma management case. I expressed to her that she might want to consider and asthma clinic where they do research. I believe this exists at [facility] in [place]. It may also exist in [place] that I am not certain of. Considering the amount of difficulty she has had that might be a consideration. Thank you for asking me to assist in her care.
--- NOTE | 2016-06-14 22:34 | EMERGENCY ROOM VISIT NOTE ---
History First contact with patient: 05:24 Chief Complaint: SHORTNESS OF BREATH Stated Complaint: ACUTE RESPIRATORY FAILURE Nursing Triage Summary: pt reports that she has been wheezing and having trouble breathing since yesterday. pt took neb, inhaler and prednisone at home without relief. History of Present Illness The patient is a 46 year old female who presents to the Emergency Room with complaints of wheezing and shortness of breath for about the past 12 hours. The patient has a long-standing history of severe asthma, and does follow with Dr. Tony of pulmonology. The patient is Mennonite and she is self-pay. Because of this she prefers to keep her costs to a minimum. She attempted to treat herself at home with her inhalers, nebulizer, and 80 mg oral prednisone. This did not change her symptoms, and she now presents to the ER for evaluation. The patient has been admitted to the hospital previously for asthma , but not since 2012. She has never been intubated with her asthma. Her last bronchoscopy was 6 months ago and essentially normal. The patient rates her overall discomfort a 7/10. Her symptoms worsen with ambulation. Review of Systems More than 10 systems were reviewed and otherwise negative with the exception of history of present illness. Past Medical/Surgical History Medical Problems: (1) Acute respiratory failure (2) ASTHMA W STATUS ASTHMAT (3) Echocardiogram (4) FX DISTAL RADIUS NEC-CL (5) Pericardial effusion (6) Pneumonia (7) Tonsillectomy Family History Diabetes mellitus Heart Disease Social History Smoking Status: Never Smoker Smokeless Tobacco Use: No Alcohol Use: none Drug Use: none Marital Status: Housing Status: lives with family Occupation Status: other (homemaker) Current/Historical Medications Scheduled Arformoterol Tartrate (Brovana), 1 VIAL NEB BID Prednisone (Prednisone), 1 TAB PO DAILY Scheduled PRN Ipratropium-Albuterol (Duoneb), 1 TREATMENT INH Q4H PRN for Shortness of Breath Allergies Coded Allergies: Eggs or Egg-derived Products (Verified Allergy, Severe, Allergy testing with high reactivity in 2012, 06/14/16) Patient notes that she eats eggs Mepolizumab (Verified Allergy, Severe, Hives / paroxysmal bronchospasm, 06/14/16) Lactose (Verified Allergy, Mild, Allergy testing in 2012, 06/14/16) Patient avoids dairy products Mouse Protein (Verified Allergy, Unknown, RESPIRATORY DISTRESS, 06/14/16) Sorbitan (Verified Allergy, Unknown, RESPIRATORY DISTRESS, 06/14/16) Physical Exam Vital Signs Date Time Temp Pulse Resp B/P Pulse Ox O2 Delivery O2 Flow Rate FiO2 06/14/16 08:20 94 Nasal Cannula 2.0 06/14/16 08:06 119 20 95/55 94 Nasal Cannula 2.0 06/14/16 07:12 123 111/64 88 Room Air 06/14/16 06:44 147 28 111/64 95 Room Air 06/14/16 05:39 109 16 92 Room Air 06/14/16 05:35 102 06/14/16 05:30 93 Room Air 06/14/16 05:27 93 Room Air 06/14/16 05:20 36.7 100 22 97/69 92 Room Air Pain Rating (0-10): 7.0 Physical Exam VITALS: Vitals are noted on the nurse's note and reviewed by myself. Vital signs stable. GENERAL: White female in moderate distress secondary to her stated complaint. She is audibly wheezing from inside the emergency department room. She is not stridorous. HEAD: Normocephalic atraumatic. NECK: Supple without nuchal rigidity. No lymphadenopathy. No thyromegaly. Cervical spine is nontender. HEART: Regular rate and rhythm without murmurs gallops or rubs. LUNGS: Diffuse wheezing and rhonchi throughout with poor air exchange ABDOMEN: Positive normal bowel sounds x 4. Soft, nontender, without masses or organomegaly. MUSCULOSKELETAL: No muscle atrophy, erythema, or edema noted. Full range of motion without joint tenderness in all extremities. Medical Decision & Procedures Laboratory Results 06/14/16 07:30 Red Blood Count 5.04, Mean Corpuscular Volume 82.7, Mean Corpuscular Hemoglobin 27.4, Mean Corpuscular Hemoglobin Concent 33.1, Mean Platelet Volume 10.5, Neutrophils (%) (Auto) 89.3, Lymphocytes (%) (Auto) 9.6, Monocytes (%) (Auto) 0.9, Eosinophils (%) (Auto) 0.0, Basophils (%) (Auto) 0.0, Neutrophils # (Auto) 5.12, Lymphocytes # (Auto) 0.55, Monocytes # (Auto) 0.05, Eosinophils # (Auto) 0.00, Basophils # (Auto) 0.00 06/14/16 07:30 Test 06/14/16 07:25 06/14/16 07:30 Arterial Blood pH 7.46 (7.35-7.45) Arterial Blood Partial Pressure CO2 32 mmHg (35-46) Arterial Blood Partial Pressure O2 74 mm/Hg (80-95) Arterial Blood HCO3 22 mmol/L (19-24) Arterial Blood Oxygen Saturation 95.1 % (90-95) Arterial Blood Base Excess -0.6 mEq/L (-9-1.8) Arterial Blood Gas Delivery 1.5L Km Test POS (POS) White Blood Count 5.73 K/uL (4.8-10.8) Red Blood Count 5.04 M/uL (4.2-5.4) Hemoglobin 13.8 g/dL (12.0-16.0) Hematocrit 41.7 % (37-47) Mean Corpuscular Volume 82.7 fL (80-100) Mean Corpuscular Hemoglobin 27.4 pg (25-34) Mean Corpuscular Hemoglobin Concent 33.1 g/dl (32-36) Platelet Count 242 K/uL (130-400) Mean Platelet Volume 10.5 fL (7.4-10.4) Neutrophils (%) (Auto) 89.3 % Lymphocytes (%) (Auto) 9.6 % Monocytes (%) (Auto) 0.9 % Eosinophils (%) (Auto) 0.0 % Basophils (%) (Auto) 0.0 % Neutrophils # (Auto) 5.12 K/uL (1.4-6.5) Lymphocytes # (Auto) 0.55 K/uL (1.2-3.4) Monocytes # (Auto) 0.05 K/uL (0.11-0.59) Eosinophils # (Auto) 0.00 K/uL (0-0.5) Basophils # (Auto) 0.00 K/uL (0-0.2) RDW Standard Deviation 46.5 fL (36.4-46.3) RDW Coefficient of Variation 15.3 % (11.5-14.5) Immature Granulocyte % (Auto) 0.2 % Immature Granulocyte # (Auto) 0.01 K/uL (0.00-0.02) Anion Gap 9.0 mmol/L (3-11) Estimated GFR () 101.7 Estimated GFR (Non- 87.7 BUN/Creatinine Ratio 11.9 (10-20) Calcium Level 9.3 mg/dl (8.5-10.1) Total Bilirubin 0.5 mg/dl (0.2-1) Aspartate Amino Transf (AST/SGOT) 7 U/L (15-37) Alanine Aminotransferase (ALT/SGPT) 23 U/L (12-78) Alkaline Phosphatase 42 U/L (45-117) Total Protein 7.5 gm/dl (6.4-8.2) Albumin 4.0 gm/dl (3.4-5.0) Globulin 3.5 gm/dl (2.5-4.0) Albumin/Globulin Ratio 1.1 (0.9-2) Medications Administered Medications (Trade) Dose Ordered Sig/Fareed Route Start Time Stop Time Status Last Admin Dose Admin Albuterol/ Ipratropium (Duoneb) 12 ml NOW ONCE INH 06/14/16 05:30 06/14/16 05:32 DC 06/14/16 05:38 12 ML Dexamethasone Sodium Phosphate 10 mg 10 mg STK-MED ONCE .ROUTE 06/14/16 05:35 06/14/16 05:36 DC 06/14/16 05:38 10 MG Sodium Chloride (Nss 1000ml) 1,000 ml @ 100 mls/hr Q10H IV 06/14/16 08:50 07/14/16 08:49 06/14/16 19:10 100 MLS/HR Levalbuterol (Xopenex 1.25MG/ 0.5ML Neb) 1.25 mg Q6R INH 06/14/16 09:00 07/14/16 08:59 06/14/16 19:23 1.25 MG Ipratropium [place] (Atrovent 0.02% 0.5MG/2.5ML Neb) 0.5 mg Q6R INH 06/14/16 09:00 07/14/16 08:59 06/14/16 19:23 0.5 MG ED Course Physical exam and history were performed. Nursing notes and EMR were reviewed. Patient appears to have a severe asthma exacerbation. She is audibly wheezing from across the room. The patient was initially treated with 10 mg IM Decadron and a one-hour DuoNeb as this has been a cost effective treatment for her in the past. The patient was placed on the athletic monitor. The patient was reevaluated multiple times throughout the course of her stay. Her pre-DuoNeb peak flow was 110. Her post one-hour DuoNeb was also with a peak flow of 110. Reevaluation of her lungs showed continued coarseness with wheezing and rhonchi throughout. Patient did not have any improvement of her symptoms after the Decadron and DuoNeb. Her vital signs were monitored, and while on the athletic monitor he was noted the patient was persistently tachycardic as well as showing evidence of hypoxia at 88% on room air. The patient was given a oxygen via nasal cannula. I discussed the case with the on-call larry operator, Dr. Viera, who is covering for Dr. Tony. The concern with the patient is that she continues to have a critically low. Flow despite multiple inhaled treatments as well as her oral prednisone at home and IM Decadron here in the department. She is also having episodes of hypoxia, and it is felt that she will need admission to the hospital. I discussed this recommendation with the patient, who agrees that she does not feel well enough for discharge home. At this time she did consent to blood work and x-rays, which were performed and are pending. The case was discussed with the on-call hospitalist, who agreed to evaluate the patient here in the department. Please see their dictation for further patient course, plan, and disposition. The chart was completed utilizing [employer] Speech Voice Recognition Software. Grammatical errors, random word insertions, pronoun errors, and incomplete sentences are an occasional consequence of this system due to software limitations, ambient noise, and hardware issues. Any formal questions or concerns about the content, text, or information contained within the body of this dictation should be directly addressed to the provider for clarification. . Medical Decision Differential diagnosis: Etiologies such as infections, reactive airway disease, pneumonia, pneumothorax , COPD, CHF, cardiac ischemia, pulmonary embolism, musculoskeletal, gastrointestinal, as well as others were entertained. Impression Primary Impression: Acute respiratory failure Additional Impression: Asthma with exacerbation Departure Information Dispostion Still a Patient Condition POOR Referrals Saud Tony MD (PCP) Forms HOME CARE DOCUMENTATION FORM, IMPORTANT VISIT INFORMATION Patient Instructions [facility] Problem Qualifiers
[2016-06-14 23:03] LABS: ISTAT ALLEN TEST Pass; ISTAT ARTERIAL BLOOD GAS HCO3 21 meq/L (19-24); ISTAT ARTERIAL BLOOD GAS PCO2 37 mmHg (35-46); ISTAT ARTERIAL BLOOD GAS PO2 93 mmHg (80-95); ISTAT ARTERIAL BLOOD GAS pH 7.37 (7.35-7.45); ISTAT CARBON DIOXIDE 22 mEq/l (24-31); ISTAT DELIVERY SYSTEM Cannula; ISTAT SITE R Radial
[2016-06-14] MEDS ORDERED: KETAMINE HCL INJ 50 MG/ML 10 ML VIAL IV STA (23:05)
[2016-06-14] MEDS ORDERED: GLYCOPYRROLATE INJ 0.2 MG/ML VIAL IV PRN (23:15)
[2016-06-14] MEDS ORDERED: KETAMINE HCL INJ 500 MG in SODIUM CHLORIDE 0.9% 500ML 490 ML IV PRN (23:30)
[2016-06-15] VITALS (36 sets, daily range): BP systolic 92–135; BP diastolic 56–92; PULSE 61–146; TEMP 36.6–36.8; O2SAT 92–100
[2016-06-15] MEDS: IPRATROPIUM BROMIDE NEB SOLN 0.02% 2.5 ML VIAL INH SCH ×4 (02:11→20:44)
[2016-06-15] MEDS: LEVALBUTEROL 1.25MG/0.5ML NEB INH SCH ×4 (02:11→20:44)
[2016-06-15] MEDS: SODIUM CHLORIDE 0.9% 1000ML 1,000 ML IV SCH (03:18)
[2016-06-15] MEDS ORDERED: NURSING VERBAL MED ORDER ONE ×2 (04:30)
[2016-06-15] MEDS ORDERED: ALBUTEROL 0.083% NEBU SOLN 3 ML VIAL INH STA (04:31)
[2016-06-15] MEDS ORDERED: LEVALBUTEROL 1.25MG/3ML NEB INH STA (04:35)
[2016-06-15] MEDS: DEXAMETHASONE INJ 8 MG in SYRINGE 0 ML IV SCH (05:42)
[2016-06-15 05:58] LABS: VEN BLD GAS O2 SATURATION 93.8 %; VEN BLOOD GAS BASE EXCESS -0.7 mmol/L
[2016-06-15 05:59] LABS: COMPLETE YES; HEMATOCRIT 39.1 % (37-47); IG% 0.2 %; LYMPH % 9.2 %; MEAN CELL VOLUME 83.7 fL (80-100); MEAN CORPUSCULAR HEMOGLOBIN 26.6 pg (25-34); MEAN CORPUSCULAR HGB CONC 31.7 g/dl (32-36); MEAN PLATELET VOLUME 10.1 fL (7.4-10.4); MONO % 6.6 %; PLATELET COUNT 257 K/uL (130-400); RED BLOOD COUNT 4.67 M/uL (4.2-5.4); WHITE BLOOD COUNT 15.23 K/uL (4.8-10.8)
[2016-06-15 06:38] LABS: PREG INTERNAL NEGATIVE QC NEG CLEAR BACKGROUND; PREG INTERNAL POSITIVE QC POS CONTROL LINE
[2016-06-15 06:42] LABS: BUN/CREATININE RATIO 25.3 (10-20); CALCIUM 8.8 mg/dl (8.5-10.1); CREATININE 0.83 mg/dl (0.60-1.20); MAGNESIUM 2.5 mg/dl (1.8-2.4); PHOSPHORUS 3.4 mg/dl (2.5-4.9)
--- NOTE | 2016-06-15 07:49 | DIAGNOSTIC IMAGING REPORT ---
CHEST ONE VIEW PORTABLE CLINICAL HISTORY: Asthma exacerbation COMPARISON STUDY: Chest radiograph and chest CT June 14, 2016. FINDINGS: There is no pneumothorax or pleural effusion. There is no consolidation to suggest pneumonia. Cardiomediastinal silhouette is normal. Pulmonary vascularity is normal. The appearance of the chest is unchanged. IMPRESSION: No acute cardiopulmonary findings. Electronically signed by: Michael Stack M.D. 06/15/2016 7:47 AM Dictated Date/Time: 06/15/2016 7:47 AM
[2016-06-15] MEDS ORDERED: PANTOprazole SOD 40 MG TAB PO SCH (09:00)
[2016-06-15] MEDS ORDERED: PROMETHAZINE HCL INJ 12.5 MG in SODIUM CHLORIDE 0.9% 50ML 50 ML IV PRN (10:00)
[2016-06-15] MEDS ORDERED: AZITHROMYCIN 500 MG / D5W 250 ML IV ONE ×2 (11:00)
[2016-06-15] MEDS: LEVALBUTEROL 1.25MG/3ML NEB INH PRN ×2 (11:15→17:57)
[2016-06-15] MEDS: MAGNESIUM SULFATE 1GM / D5W 1 GM in PREMIXED IN D5W 100 ML IV SCH ×2 (11:19→11:58)
--- NOTE | 2016-06-15 11:30 | Critical Care Progress Note ---
Critical Care Progress Note Date of Service June 15, 2016. ICU Day ICU Day Number: [address] Matt Subjective Mrs. Erazo continues to have significant difficulty moving air and has persistent bronchospasm. She was started on low dose ketamine last night and this morning is having hallucinations and increased disassociation. On exam she seems to be improved but is stating "I just want to see Yeison". Her and son are present. Her states that she does not seem to be in as much respiratory distress abut is clearly concerned with her mental status. She denies chest pain today. She denies fever or sweats. She has no other acute complaints. Objective Vital Signs - as noted below Laboratory Data - as noted below Physical Exam: General - NAD Eyes - No icterus, gaze conjugate ENT - Mucosa moist, no lesions or candidiasis Neck - Supple, No JVD. No stridor but does have some transmitted breath sounds Lungs - She continues with diffuse bronchospasm but seems to have better airway clearance today. While she has a nasal cannula in place, it frequently is displaced and she maintains adequate oxygenation. She has no rhonchi. Breath sounds are equal to the bases Heart - Regular, Tachycardia is improved but still in the 90s and low 100s. She has no appreciated GMRs. Abdomen - Soft, NT, ND, BS present. Non-tender to deep palpation. No rebound tenderness Extremities - No edema, pedal pulses intact Neuro - Patient follows simple commands with urging. She generally is keeping eyes closed and is disoriented. She is sitting in bedside chair and has no difficulty with balance or maintaining airway. Speech is not slurred Pupils are equal. She states that she remembers me from yesterday. Current SOFA Score SOFA Score Response (Comments) Value PaO2/FiO2 (mmHg) < 100 4 SaO2 / FIO2 67 - 141 3 Platelets (x10) < 150 1 Bilirubin (mg/dL) < 1.2 0 [place] Coma Score 13 - 14 1 Level of Hypotension No Hypotension 0 Total 9 Assessment & Plan ASTHMA EXACERBATION Patient continues with moderate distress This is a total of 4 mg of magnesium yesterday - infuse additional 2 mg today Continue with bronchodilators Change Decadron to Solu-Medrol 40 mg every 8 hours IV Patient was started on ketamine infusion last night for anxiety with paroxysmal result this morning Change to Precedex Start azithromycin 500 mg loading dose followed by 250 mg daily Start Brovana BID Continue to monitor in ICU until peak flows are improved - expected peak 475 Pulmonary consulted. Appreciate Dr. Viera's input PULMONARY NODULE 2.5 cm groundglass opacity in the right upper lobe This is most likely reactive but should have CT follow-up in one month to clear Consult placed with pulmonary nodule program and discuss with pulmonary nodule coordinator Patient scheduled to see Dr. Tony later this month in his pulmonary office - he will follow through with further evaluation ID New leukocytosis most likely secondary to high-dose steroids as patient continues be afebrile No eosinophils on differential this morning as well as at time of admission Scant sputum production with no evidence of hemoptysis MRSA screening negative for DNA probe RENAL Creatinine 0.83 Minimal urine output - follow strict I's and O's ELECTROLYTES Balanced Magnesium 2.5 this morning CARDIAC Nonspecific chest pain secondary to cough has now resolved Cardiac enzymes negative EKG was sinus tachycardia with biatrial enlargement similar to admission Hemodynamically stable IV ACCESS No indication for central line Continue peripheral access GI PROPHYLAXIS Patient high dose steroids and Toradol Started Pantoprazole 40 mg daily yesterday Changed to ranitidine for histamine blocking effect DVT PROPHYLAXIS Enoxaparin Activity as tolerated NEURO Alert and oriented 3 No focal deficits on exam NUTRITION Diet as tolerated recognizing food allergies CCT: 40 minutes. Patient continues with IV infusion of Precedex (dexmedetomidine ) Thank you for including us in the care of this patient. Please refer to Dr. Matt's addendum for further recommendations. I have personally evaluated and examined this patient. I agree with assessment and plan of Amelia Caro PA-C. Very anxious not sleeping. Attempted improvement with Ketamine for bronchodilatation properties, too disinhibited. Given precedex, significant improvement in anxiety, not resting comfortably without awakening with air hunger. Consults & Procedures Consultants: Pulmonology-Dr. Viera Lung nodule program Procedures: IV infusion of ketamine and Precedex Data Medications: Current Inpatient Medications Medications (Trade) Dose Ordered Sig/Fareed Route Start Time Stop Time Status Last Admin Dose Admin Enoxaparin Sodium (Lovenox Inj) 40 mg DAILY@1600 SQ 06/14/16 16:00 07/14/16 15:59 06/14/16 15:19 40 MG Acetaminophen (Tylenol Tab) 650 mg Q4H PRN PO 06/14/16 09:00 07/14/16 08:59 Al Hydrox/Mg Hydrox/Simethicone (Maalox Max Susp) 15 ml Q4H PRN PO 06/14/16 09:00 07/14/16 08:59 Magnesium Hydroxide (Milk Of Magnesia Susp) 30 ml Q12H PRN PO 06/14/16 09:00 07/14/16 08:59 Ondansetron HCl (Zofran Inj) 4 mg Q6H PRN IV 06/14/16 09:00 07/14/16 08:59 Levalbuterol (Xopenex 1.25MG/ 0.5ML Neb) 1.25 mg Q6R INH 06/14/16 09:00 07/14/16 08:59 06/15/16 07:26 1.25 MG Levalbuterol (Xopenex 1.25MG/ 3ML Neb) 1.25 mg Q2H PRN INH 06/14/16 09:15 07/14/16 09:14 06/14/16 20:07 1.25 MG Ipratropium [place] (Atrovent 0.02% 0.5MG/2.5ML Neb) 0.5 mg Q6R INH 06/14/16 09:00 07/14/16 08:59 06/15/16 07:26 0.5 MG Ketorolac Tromethamine (Toradol Inj) 15 mg Q6H PRN IV 06/14/16 09:45 06/19/16 09:44 06/14/16 20:48 15 MG Diphenhydramine HCl 50 mg 50 mg QID PRN PO 06/14/16 18:45 07/14/16 18:44 06/14/16 19:10 50 MG Dexmedetomidine HCl 200 mcg/ Sodium Chloride 50 ml @ 0 mls/hr Q0M PRN IV 06/15/16 09:45 06/19/16 09:44 Magnesium Sulfate 1 gm/Prmx 100 ml @ 100 mls/hr Q1H IV 06/15/16 10:00 06/15/16 11:59 Methylprednisolone Sodium Succinate 40 mg/Syringe 0.64 ml @ 1.5 mls/min Q8H IV 06/15/16 14:00 07/15/16 13:59 Promethazine HCl 12.5 mg/Sodium Chloride 50.5 ml @ 202 mls/hr Q6H PRN IV 06/15/16 10:00 6/9/17 09:59 Azithromycin 500 mg/Dextrose 255 ml @ 127.5 mls/ hr ONE ONCE IV 06/15/16 11:00 06/15/16 12:59 Azithromycin 250 mg/Dextrose 252.5 ml @ 126.25 mls/ hr Q24H IV 06/16/16 10:00 06/19/16 11:59 Ranitidine HCl/ Dextrose (zANTac IV/D5 100ml) 102 ml @ 200 mls/hr Q8H IV 06/15/16 12:00 07/15/16 09:59 I & O: 24-Hour Column 06/15/16 07:59 Intake Total 2357 ml Output Total 1050 ml Balance 1307 ml Vital Signs: Date Time Temp Pulse Resp B/P Pulse Ox O2 Delivery O2 Flow Rate FiO2 06/15/16 07:29 115 22 98 Nasal Cannula 3.0 06/15/16 06:00 118 21 104/62 96 Nasal Cannula 2.0 06/15/16 05:12 142 28 100 06/15/16 05:00 141 27 130/82 100 06/15/16 04:43 127 24 100 06/15/16 04:41 139 24 94 Room Air 06/15/16 04:30 146 33 95 06/15/16 04:19 114 24 98/65 94 06/15/16 04:00 97 Nasal Cannula 3.0 06/15/16 04:00 146 25 98/65 97 06/15/16 04:00 97 19 98/65 97 06/15/16 03:30 94 20 92 06/15/16 03:00 88 20 115/73 94 06/15/16 02:30 104 24 95 06/15/16 02:11 104 22 96 Nasal Cannula 3.0 06/15/16 02:11 102 25 100 06/15/16 02:00 95 25 110/56 94 06/15/16 02:00 95 25 110/56 94 06/15/16 02:00 95 25 110/56 94 06/15/16 01:30 107 22 97 06/15/16 01:00 105 25 135/78 97 06/15/16 01:00 105 25 135/78 97 06/15/16 01:00 105 25 135/78 97 06/15/16 01:00 105 25 135/78 97 06/15/16 00:30 108 25 97 06/15/16 00:30 108 25 97 06/15/16 00:30 108 25 97 06/15/16 00:06 36.6 06/15/16 00:04 119 20 100 06/15/16 00:00 121 27 133/92 99 06/15/16 00:00 121 27 133/92 99 06/15/16 00:00 121 27 133/92 99 06/15/16 00:00 121 27 133/92 99 06/15/16 00:00 121 27 133/92 99 06/15/16 00:00 133/92 99 06/14/16 23:34 100 Nasal Cannula 4.0 06/14/16 23:30 100 19 98 06/14/16 23:10 114 29 112/78 97 06/14/16 23:00 119 24 115/72 97 06/14/16 22:30 121 25 97 06/14/16 22:15 118 28 98 Nasal Cannula 4.0 06/14/16 22:00 115 21 109/66 97 06/14/16 20:07 111 18 96 Nasal Cannula 4.0 06/14/16 20:00 100 Nasal Cannula 4.0 06/14/16 20:00 36.7 114 22 110/64 100 Nasal Cannula 4.0 06/14/16 19:23 98 18 97 Nasal Cannula 4.0 06/14/16 18:00 104 20 103/66 98 Nasal Cannula 4.0 06/14/16 16:55 106 16 95 Nasal Cannula 4.0 06/14/16 16:00 99 Nasal Cannula 4.0 06/14/16 16:00 36.7 96 19 106/61 99 Nasal Cannula 4.0 06/14/16 14:00 124 19 96/71 97 4.0 06/14/16 13:45 115 16 93 Nasal Cannula 4.0 06/14/16 12:00 98 Nasal Cannula 4.0 06/14/16 12:00 36.5 98 21 118/59 97 4.0 06/14/16 11:00 123 25 109/63 97 4.0 06/14/16 10:43 36.5 126 27 113/65 96 4.0 Laboratory Results: Last 24 Hours Test 06/14/16 12:48 06/14/16 16:32 06/14/16 21:14 06/14/16 22:51 Prothrombin Time 10.8 SECONDS Prothromb Time International Ratio 1.0 Activated Partial Thromboplast Time 23.9 SECONDS Partial Thromboplastin Ratio 0.9 Magnesium Level 2.4 mg/dl Total Creatine Kinase 42 U/L Creatine Kinase MB < 0.5 ng/ml Creatine Kinase MB Ratio Troponin I < 0.015 ng/ml Bedside Glucose 116 mg/dl 117 mg/dl Blood Gas Sample Site R Radial Bedside Blood Gas pH (LAB) 7.37 Bedside Blood Gas pCO2 (LAB) 37 mmHg Bedside Blood Gas pO2 (LAB) 93 mmHg Bedside Blood Gas HCO3 (LAB) 21 meq/L Bedside Blood Gas Total CO2 22 mEq/l Bedside Blood Gas Base Excess (LAB) -4.0 meq/L Bedside Blood Gas O2 Saturation 97.0 % Km Test Pass Oxygen Delivery Device Cannula Test 06/15/16 05:47 White Blood Count 15.23 K/uL Red Blood Count 4.67 M/uL Hemoglobin 12.4 g/dL Hematocrit 39.1 % Mean Corpuscular Volume 83.7 fL Mean Corpuscular Hemoglobin 26.6 pg Mean Corpuscular Hemoglobin Concent 31.7 g/dl Platelet Count 257 K/uL Mean Platelet Volume 10.1 fL Neutrophils (%) (Auto) 84.0 % Lymphocytes (%) (Auto) 9.2 % Monocytes (%) (Auto) 6.6 % Eosinophils (%) (Auto) 0.0 % Basophils (%) (Auto) 0.0 % Neutrophils # (Auto) 12.79 K/uL Lymphocytes # (Auto) 1.40 K/uL Monocytes # (Auto) 1.01 K/uL Eosinophils # (Auto) 0.00 K/uL Basophils # (Auto) 0.00 K/uL RDW Standard Deviation 47.2 fL RDW Coefficient of Variation 15.4 % Immature Granulocyte % (Auto) 0.2 % Immature Granulocyte # (Auto) 0.03 K/uL Venous Blood pH 7.43 Venous Blood Partial Pressure CO2 36 mmHg Venous Blood Partial Pressure O2 73 mmHg Venous Blood HCO3 23 mmol/L Venous Blood Oxygen Saturation 93.8 % Venous Blood Base Excess -0.7 mmol/L Sodium Level 144 mmol/L Potassium Level 4.0 mmol/L Chloride Level 111 mmol/L Carbon Dioxide Level 25 mmol/L Anion Gap 8.0 mmol/L Blood Urea Nitrogen 21 mg/dl Creatinine 0.83 mg/dl Est Creatinine Clear Calc Drug Dose 83.6 ml/min Estimated GFR () 98.7 Estimated GFR (Non- 85.2 BUN/Creatinine Ratio 25.3 Random Glucose 117 mg/dl Calcium Level 8.8 mg/dl Phosphorus Level 3.4 mg/dl Magnesium Level 2.5 mg/dl Human Chorionic Gonadotropin, Qual NEG
[2016-06-15] MEDS: RANITIDINE IV 50 MG in DEXTROSE 5% 100ML 100 ML IV SCH ×2 (12:00→19:51)
--- NOTE | 2016-06-15 12:48 | Hospitalist Progress Note ---
Hospitalist Progress Note Date of Service June 15, 2016. (Hattie Clay PA-C) Subjective Pt evaluation today including: conversation w/ patient, conversation w/ family , physical exam, chart review, lab review, review of studies, review of inpatient medication list Patient seen and evaluated. States she feels "fair" and reports that she feels her breathing is a little improved. The pleuritic chest pain is completely resolved per patient report. Only complaining of mild nausea during my exam. Patient is more lethargic then yesterday but currently receiving Ketamine. Airways continue to sound tight with inspiratory/expiratory wheezing and some course breath sounds anteriorly. Verbalizes no other complaints at this time. Constitutional: No chills, No fever ENT: + nasal symptoms, + problem reported (dry mouth), + sore throat Respiratory: + cough, + shortness of breath, + sputum (intermittent but rare ), + wheezing Cardiovascular: No chest pain Abdomen: + nausea, No pain, No vomiting Musculoskeletal: No calf pain, No swelling Female : No dysuria Skin: No rash (Hattie Clay PA-C) Medications Current Inpatient Medications Medications (Trade) Dose Ordered Sig/Fareed Route Start Time Stop Time Status Last Admin Dose Admin Enoxaparin Sodium (Lovenox Inj) 40 mg DAILY@1600 SQ 06/14/16 16:00 07/14/16 15:59 06/14/16 15:19 40 MG Acetaminophen (Tylenol Tab) 650 mg Q4H PRN PO 06/14/16 09:00 07/14/16 08:59 Al Hydrox/Mg Hydrox/Simethicone (Maalox Max Susp) 15 ml Q4H PRN PO 06/14/16 09:00 07/14/16 08:59 Magnesium Hydroxide (Milk Of Magnesia Susp) 30 ml Q12H PRN PO 06/14/16 09:00 07/14/16 08:59 Ondansetron HCl (Zofran Inj) 4 mg Q6H PRN IV 06/14/16 09:00 07/14/16 08:59 Levalbuterol (Xopenex 1.25MG/ 0.5ML Neb) 1.25 mg Q6R INH 06/14/16 09:00 07/14/16 08:59 06/15/16 07:26 1.25 MG Levalbuterol (Xopenex 1.25MG/ 3ML Neb) 1.25 mg Q2H PRN INH 06/14/16 09:15 07/14/16 09:14 06/15/16 11:15 1.25 MG Ipratropium [place] (Atrovent 0.02% 0.5MG/2.5ML Neb) 0.5 mg Q6R INH 06/14/16 09:00 07/14/16 08:59 06/15/16 07:26 0.5 MG Ketorolac Tromethamine (Toradol Inj) 15 mg Q6H PRN IV 06/14/16 09:45 06/19/16 09:44 06/14/16 20:48 15 MG Diphenhydramine HCl 50 mg 50 mg QID PRN PO 06/14/16 18:45 07/14/16 18:44 06/14/16 19:10 50 MG Dexmedetomidine HCl 200 mcg/ Sodium Chloride 50 ml @ 0 mls/hr Q0M PRN IV 06/15/16 09:45 06/19/16 09:44 Methylprednisolone Sodium Succinate 40 mg/Syringe 0.64 ml @ 1.5 mls/min Q8H IV 06/15/16 14:00 07/15/16 13:59 Promethazine HCl 12.5 mg/Sodium Chloride 50.5 ml @ 202 mls/hr Q6H PRN IV 06/15/16 10:00 07/15/16 09:59 Azithromycin 500 mg/Dextrose 255 ml @ 127.5 mls/ hr ONE ONCE IV 06/15/16 11:00 06/15/16 12:59 06/15/16 11:58 127.5 MLS/HR Azithromycin 250 mg/Dextrose 252.5 ml @ 126.25 mls/ hr Q24H IV 06/16/16 10:00 06/19/16 11:59 Ranitidine HCl/ Dextrose (zANTac IV/D5 100ml) 102 ml @ 200 mls/hr Q8H IV 06/15/16 12:00 07/15/16 09:59 06/15/16 12:00 200 MLS/HR (Hattie Clay, GENESIS) Objective Vital Signs Date Time Temp Pulse Resp B/P Pulse Ox O2 Delivery O2 Flow Rate FiO2 06/15/16 11:15 90 22 97 Nasal Cannula 2.5 06/15/16 09:00 115 0 134/74 93 06/15/16 08:00 114 16 110/71 97 06/15/16 08:00 98 2.0 06/15/16 08:00 99 Nasal Cannula 2.0 06/15/16 07:29 115 22 98 Nasal Cannula 3.0 06/15/16 07:00 109 22 112/67 97 06/15/16 07:00 36.6 118 21 130/82 96 06/15/16 06:00 118 21 104/62 96 Nasal Cannula 2.0 06/15/16 05:12 142 28 100 06/15/16 05:00 141 27 130/82 100 06/15/16 04:43 127 24 100 06/15/16 04:41 139 24 94 Room Air 06/15/16 04:30 146 33 95 06/15/16 04:19 114 24 98/65 94 06/15/16 04:00 97 Nasal Cannula 3.0 06/15/16 04:00 146 25 98/65 97 06/15/16 04:00 97 19 98/65 97 06/15/16 03:30 94 20 92 06/15/16 03:00 88 20 115/73 94 06/15/16 02:30 104 24 95 06/15/16 02:11 104 22 96 Nasal Cannula 3.0 06/15/16 02:11 102 25 100 06/15/16 02:00 95 25 110/56 94 06/15/16 02:00 95 25 110/56 94 06/15/16 02:00 95 25 110/56 94 06/15/16 01:30 107 22 97 06/15/16 01:00 105 25 135/78 97 06/15/16 01:00 105 25 135/78 97 06/15/16 01:00 105 25 135/78 97 06/15/16 01:00 105 25 135/78 97 06/15/16 00:30 108 25 97 06/15/16 00:30 108 25 97 06/15/16 00:30 108 25 97 06/15/16 00:06 36.6 06/15/16 00:04 119 20 100 06/15/16 00:00 121 27 133/92 99 06/15/16 00:00 121 27 133/92 99 06/15/16 00:00 121 27 133/92 99 06/15/16 00:00 121 27 133/92 99 06/15/16 00:00 121 27 133/92 99 06/15/16 00:00 133/92 99 06/14/16 23:34 100 Nasal Cannula 4.0 06/14/16 23:30 100 19 98 06/14/16 23:10 114 29 112/78 97 06/14/16 23:00 119 24 115/72 97 06/14/16 22:30 121 25 97 06/14/16 22:15 118 28 98 Nasal Cannula 4.0 06/14/16 22:00 115 21 109/66 97 06/14/16 20:07 111 18 96 Nasal Cannula 4.0 06/14/16 20:00 100 Nasal Cannula 4.0 06/14/16 20:00 36.7 114 22 110/64 100 Nasal Cannula 4.0 06/14/16 19:23 98 18 97 Nasal Cannula 4.0 06/14/16 18:00 104 20 103/66 98 Nasal Cannula 4.0 06/14/16 16:55 106 16 95 Nasal Cannula 4.0 06/14/16 16:00 99 Nasal Cannula 4.0 06/14/16 16:00 36.7 96 19 106/61 99 Nasal Cannula 4.0 06/14/16 14:00 124 19 96/71 97 4.0 06/14/16 13:45 115 16 93 Nasal Cannula 4.0 (Hattie Clay, PA-C) Physical Exam General Appearance: WD/WN, no apparent distress Eyes: sclerae normal ENT: hearing grossly normal, pharynx normal Neck: supple, no JVD, trachea midline Respiratory/Chest: no respiratory distress, no accessory muscle use, + wheezing (inspiratory/expiratory with course breath sounds anteriorly) Cardiovascular: no gallop, no murmur, + tachycardia Abdomen: normal bowel sounds, non tender, soft Extremities: no pedal edema, no calf tenderness Neurologic/Psychiatric: + pertinent finding (drowsy but follows commands) Skin: normal color, warm/dry (Hattie Clay, PA-C) Laboratory Results Last 24 Hours Test 06/14/16 12:48 06/14/16 16:32 06/14/16 21:14 06/14/16 22:51 Prothrombin Time 10.8 SECONDS Prothromb Time International Ratio 1.0 Activated Partial Thromboplast Time 23.9 SECONDS Partial Thromboplastin Ratio 0.9 Magnesium Level 2.4 mg/dl Total Creatine Kinase 42 U/L Creatine Kinase MB < 0.5 ng/ml Creatine Kinase MB Ratio Troponin I < 0.015 ng/ml Bedside Glucose 116 mg/dl 117 mg/dl Blood Gas Sample Site R Radial Bedside Blood Gas pH (LAB) 7.37 Bedside Blood Gas pCO2 (LAB) 37 mmHg Bedside Blood Gas pO2 (LAB) 93 mmHg Bedside Blood Gas HCO3 (LAB) 21 meq/L Bedside Blood Gas Total CO2 22 mEq/l Bedside Blood Gas Base Excess (LAB) -4.0 meq/L Bedside Blood Gas O2 Saturation 97.0 % Km Test Pass Oxygen Delivery Device Cannula Test 06/15/16 05:47 06/15/16 11:10 White Blood Count 15.23 K/uL Red Blood Count 4.67 M/uL Hemoglobin 12.4 g/dL Hematocrit 39.1 % Mean Corpuscular Volume 83.7 fL Mean Corpuscular Hemoglobin 26.6 pg Mean Corpuscular Hemoglobin Concent 31.7 g/dl Platelet Count 257 K/uL Mean Platelet Volume 10.1 fL Neutrophils (%) (Auto) 84.0 % Lymphocytes (%) (Auto) 9.2 % Monocytes (%) (Auto) 6.6 % Eosinophils (%) (Auto) 0.0 % Basophils (%) (Auto) 0.0 % Neutrophils # (Auto) 12.79 K/uL Lymphocytes # (Auto) 1.40 K/uL Monocytes # (Auto) 1.01 K/uL Eosinophils # (Auto) 0.00 K/uL Basophils # (Auto) 0.00 K/uL RDW Standard Deviation 47.2 fL RDW Coefficient of Variation 15.4 % Immature Granulocyte % (Auto) 0.2 % Immature Granulocyte # (Auto) 0.03 K/uL Venous Blood pH 7.43 Venous Blood Partial Pressure CO2 36 mmHg Venous Blood Partial Pressure O2 73 mmHg Venous Blood HCO3 23 mmol/L Venous Blood Oxygen Saturation 93.8 % Venous Blood Base Excess -0.7 mmol/L Sodium Level 144 mmol/L Potassium Level 4.0 mmol/L Chloride Level 111 mmol/L Carbon Dioxide Level 25 mmol/L Anion Gap 8.0 mmol/L Blood Urea Nitrogen 21 mg/dl Creatinine 0.83 mg/dl Est Creatinine Clear Calc Drug Dose 83.6 ml/min Estimated GFR () 98.7 Estimated GFR (Non- 85.2 BUN/Creatinine Ratio 25.3 Random Glucose 117 mg/dl Calcium Level 8.8 mg/dl Phosphorus Level 3.4 mg/dl Magnesium Level 2.5 mg/dl Human Chorionic Gonadotropin, Qual NEG Bedside Glucose 152 mg/dl (Hattie Clay PA-C) Assessment and Plan Ms. Erazo is a 46 y/o female with PMHx of Severe Uncontrolled Asthma and Allergic Rhinitis who presents to the ED c/o SOB that started yesterday. She appears in respiratory alkalosis from asthma exacerbation Acute Respiratory Failure due to Asthma Exacerbation with Status Asthmaticus - Switched to Methylprednisolone 40 mg IV Q8H - Azithromycin 500 mg x 1 then 250 mg daily - Xopenex and Atrovent nebulizers - as patient is tachycardic - Consult Intensivists - appreciate co-management - - Consult Pulmonology - patient follows with Dr. Tony GI Prophylaxis: - Ranitidine 50 mg IV Q8H DVT Prophylaxis: Lovenox 40 mg SC daily; REGAN/SCDs Code Status: FULL RESUSCITATION Disposition: - CT F/U x 1 month for ground glass opacity in RUL Continued [facility] stay due to: multiple IV medications needed (Hattie Clay PA-C)
[2016-06-15] MEDS: METHYLPREDNISOLONE 40 MG in SYRINGE 0 ML IV SCH ×2 (15:54→21:36)
[2016-06-15] MEDS: ENOXAPARIN 40 MG/0.4 ML SYR SQ SCH (15:56)
--- NOTE | 2016-06-15 17:47 | PULMONARY PROGRESS NOTE ---
DATE: 06/15/2016 TIME: 5 p.m. SUBJECTIVE: The patient is sleepy, but arousable. Her tightness and bronchospasm have persisted. She was started on ketamine last night. She apparently developed hallucinations. Today, she was put on Precedex. She states that she is less short of breath. However, she is barely able to open her eyes for me. OBJECTIVE: GENERAL: The patient looked comfortable. VITAL SIGNS: She has been afebrile. Heart rate is 84 per minute. Blood pressure 111/60. Respiratory rate is 20 breaths per minute. LUNGS: She still sounds tight. She has bronchospasm noted on inspiration and expiration. Oxygen saturation is 94% on 2 liters. End tidal pulse oximetry has been acceptable. LABORATORY DATA: White count today was 15.23. This is increased from yesterday at 5.73. It may well be due to steroids. Hemoglobin is 12.4. Platelets 257,000. Blood gas last evening showed a pH of 7.37 with a pCO2 of 37 and pO2 of 93. It is unknown how much oxygen she was on at that time. Electrolytes show sodium 144, potassium 4.0, chloride 111, and bicarbonate 25. BUN 21 with a creatinine of 0.83. IMPRESSIONS: 1. Status asthmaticus. 2. Pectus excavatum. 3. Ground-glass changes, right upper lobe. 4. Gastroesophageal reflux disease. Could consider increasing the dose of methylprednisolone. She is currently at 40 mg IV q. 8 hours. Might consider increasing to 80 mg IV q. 8 hours until she has improved.
[2016-06-15] MEDS: ARFORMOTEROL TART 15MCG/2ML VIAL INH SCH (19:09)
[2016-06-15] MEDS: DexMEDEtomidine HCL IV 200 MCG in SODIUM CHLORIDE 0.9% 50ML 48 ML IV PRN (19:49)
[2016-06-16] VITALS (22 sets, daily range): BP systolic 93–145; BP diastolic 60–73; PULSE 49–116; TEMP 36.5–37.2; O2SAT 93–98
[2016-06-16] MEDS: DexMEDEtomidine HCL IV 200 MCG in SODIUM CHLORIDE 0.9% 50ML 48 ML IV PRN ×2 (00:43→05:53)
[2016-06-16] MEDS: IPRATROPIUM BROMIDE NEB SOLN 0.02% 2.5 ML VIAL INH SCH ×4 (02:23→19:15)
[2016-06-16] MEDS: LEVALBUTEROL 1.25MG/0.5ML NEB INH SCH ×4 (02:23→19:15)
[2016-06-16] MEDS: RANITIDINE IV 50 MG in DEXTROSE 5% 100ML 100 ML IV SCH (04:17)
[2016-06-16] MEDS: METHYLPREDNISOLONE 40 MG in SYRINGE 0 ML IV SCH ×3 (05:53→21:40)
[2016-06-16 06:06] LABS: COMPLETE YES; EOS % 0.1 %; HEMATOCRIT 37.8 % (37-47); IG% 0.3 %; LYMPH % 16.1 %; LYMPH ABS # 1.68 K/uL (1.2-3.4); MEAN CELL VOLUME 83.6 fL (80-100); MEAN CORPUSCULAR HEMOGLOBIN 26.5 pg (25-34); MEAN CORPUSCULAR HGB CONC 31.7 g/dl (32-36); MEAN PLATELET VOLUME 9.7 fL (7.4-10.4); NEUT % 77.5 %; PLATELET COUNT 209 K/uL (130-400); RED BLOOD COUNT 4.52 M/uL (4.2-5.4); WHITE BLOOD COUNT 10.42 K/uL (4.8-10.8)
[2016-06-16 06:45] LABS: BUN/CREATININE RATIO 26.4 (10-20); CREATININE 0.64 mg/dl (0.60-1.20); MAGNESIUM 2.3 mg/dl (1.8-2.4); PHOSPHORUS 3.9 mg/dl (2.5-4.9); POTASSIUM 4.2 mmol/L (3.5-5.1)
[2016-06-16 06:57] LABS: CALCIUM 8.9 mg/dl (8.5-10.1)
[2016-06-16] MEDS: ARFORMOTEROL TART 15MCG/2ML VIAL INH SCH ×2 (07:45→20:00)
--- NOTE | 2016-06-16 09:33 | Critical Care Progress Note ---
Critical Care Progress Note Date of Service June 16, 2016. ICU Day ICU Day Number: [address] Matt Subjective The patient states that she is feeling much better today Note that she continues to require nebulizers [id number] Note that she got a good night sleep and feels well rested No acute issues overnight noted by the nursing staff Objective Vital Signs - as noted below Laboratory Data - as noted below Physical Exam: General - NAD Eyes - No icterus, gaze conjugate ENT - Mucosa moist, no lesions or candidiasis Neck - Supple, No JVD. No stridor but does have some transmitted breath sounds Lungs - She continues with diffuse bronchospasm but seems to have better airway clearance today. While she has a nasal cannula in place, it frequently is displaced and she maintains adequate oxygenation. She has no rhonchi. Breath sounds are equal to the bases Heart - Regular, Tachycardia is improved but still in the 90s and low 100s. She has no appreciated GMRs. Abdomen - Soft, NT, ND, BS present. Non-tender to deep palpation. No rebound tenderness Extremities - No edema, pedal pulses intact Neuro - Patient follows simple commands with urging. She generally is keeping eyes closed and is disoriented. She is sitting in bedside chair and has no difficulty with balance or maintaining airway. Speech is not slurred Pupils are equal. She states that she remembers me from yesterday. Current SOFA Score SOFA Score Response (Comments) Value Bilirubin (mg/dL) < 1.2 0 [place] Coma Score 15 0 Level of Hypotension No Hypotension 0 Creatinine (mg/dL) 1.2 - 1.9 1 Total 1 Previous SOFA Scores 9 Assessment & Plan NEUROLOGICAL - GCS: 15; CAM-ICU negative; Alert/Oriented x 3 - RASS: 0 Precedex infusion has been discontinued CARDIAC - BP: 100-120 systolic; meeting MAP goal > 65 - Heart rate 50s, sinus rhythm - Vasopressor support: None - IV Fluids: None RESPIRATORY - RR: 16-20 SpO2: Greater than 94% - The patient's oxygen demands of decreased from 4 L to 2 L over the past 24 hours which is encouraging - No indication to perform ABG at this time as long as clinical status continues to improve Asthma Exacerbation - Continue Xopenex and Atrovent nebulizers every 6 hours Additional Xopenex nebulizers every 2 hours when necessary for shortness of breath or wheezing - Continue Solu-Medrol 40 every 8; does continue to have a lot of wheezing so we will not taper down the dose at this time - Continue azithromycin - Brovana BID was started yesterday which the patient noted was very helpful; this will be continued - Pulmonary service has been consulted; recommendations are appreciated - Sputum will be sent for Gram stain and culture Pulmonary Nodule - 2.5 cm groundglass opacity in the right upper lobe; pulmonary nodule program has been consultative; has follow-up with Dr. Tony GASTROINTSTINAL - Diet: Regular diet, no dairy products - Nutrition has been consultative, as patient likely has atopic phenotype that would warrant stringent dietary discretion - GI Prophylaxis: Ranitidine has been added, for adjunctive anti-histaminic have allergic symptoms - Bowel regimen: Last bowel movement on 06/15/2016 RENAL//ENDOCRINE - Fluid Balance Globally +2.3 L; 24 hour fluid balance +1.8 L; achieving adequate urine output > 0.5 ml/kg/hr - Cr: 0.64; meeting UO goal > 0.5 ml/kg/hr - No gross electrolyte abnormalities - BSG: Stable - Continue Solu-Medrol 40 IV TID HEME/ID - Tmax: Afebrile; WBC - Antibiotics: Azithromycin, 250 mg, day 2/5 - DVT Prophylaxis: Lovenox CODE STATUS - Full Code DISPOSITION - OT/PT: Not indicated, patient has normal baseline ambulatory function with anticipated need for rehab services at discharge - Stable for transfer to floor ID New leukocytosis most likely secondary to high-dose steroids as patient continues be afebrile No eosinophils on differential this morning as well as at time of admission Scant sputum production with no evidence of hemoptysis MRSA screening negative for DNA probe RENAL Creatinine 0.83 Minimal urine output - follow strict I's and O's ELECTROLYTES Balanced Magnesium 2.5 this morning CARDIAC Nonspecific chest pain secondary to cough has now resolved Cardiac enzymes negative EKG was sinus tachycardia with biatrial enlargement similar to admission Hemodynamically stable IV ACCESS No indication for central line Continue peripheral access GI PROPHYLAXIS Patient high dose steroids and Toradol Started Pantoprazole 40 mg daily yesterday Changed to ranitidine for histamine blocking effect DVT PROPHYLAXIS Enoxaparin Activity as tolerated NEURO Alert and oriented 3 No focal deficits on exam NUTRITION Diet as tolerated recognizing food allergies Resident Physician Supervision Note: Dr. Lott was resident physician during care of patient. I separately evaluated patient and did history and exam. I discussed the case with the resident and generally agree with the findings and plan. Feeling much improved, was able to sleep through the night. Documented By: Anshul Matt DO Consults & Procedures Consultants: Pulmonology-Dr. Viera Lung nodule program Procedures: IV infusion of ketamine and Precedex Data Medications: Current Inpatient Medications Medications (Trade) Dose Ordered Sig/Fareed Route Start Time Stop Time Status Last Admin Dose Admin Enoxaparin Sodium (Lovenox Inj) 40 mg DAILY@1600 SQ 06/14/16 16:00 07/14/16 15:59 06/15/16 15:56 40 MG Acetaminophen (Tylenol Tab) 650 mg Q4H PRN PO 06/14/16 09:00 07/14/16 08:59 Al Hydrox/Mg Hydrox/Simethicone (Maalox Max Susp) 15 ml Q4H PRN PO 06/14/16 09:00 07/14/16 08:59 Magnesium Hydroxide (Milk Of Magnesia Susp) 30 ml Q12H PRN PO 06/14/16 09:00 07/14/16 08:59 Ondansetron HCl (Zofran Inj) 4 mg Q6H PRN IV 06/14/16 09:00 07/14/16 08:59 Levalbuterol (Xopenex 1.25MG/ 0.5ML Neb) 1.25 mg Q6R INH 06/14/16 09:00 07/14/16 08:59 06/16/16 08:21 1.25 MG Levalbuterol (Xopenex 1.25MG/ 3ML Neb) 1.25 mg Q2H PRN INH 06/14/16 09:15 07/14/16 09:14 06/15/16 17:57 1.25 MG Ipratropium [place] (Atrovent 0.02% 0.5MG/2.5ML Neb) 0.5 mg Q6R INH 06/14/16 09:00 07/14/16 08:59 06/16/16 08:21 0.5 MG Ketorolac Tromethamine (Toradol Inj) 15 mg Q6H PRN IV 06/14/16 09:45 06/19/16 09:44 06/14/16 20:48 15 MG Diphenhydramine HCl 50 mg 50 mg QID PRN PO 06/14/16 18:45 07/14/16 18:44 06/15/16 21:36 50 MG Methylprednisolone Sodium Succinate 40 mg/Syringe 0.64 ml @ 1.5 mls/min Q8H IV 06/15/16 14:00 07/15/16 13:59 06/16/16 05:53 1.5 MLS/MIN Promethazine HCl 12.5 mg/Sodium Chloride 50.5 ml @ 202 mls/hr Q6H PRN IV 06/15/16 10:00 07/15/16 09:59 Azithromycin 250 mg/Dextrose 252.5 ml @ 126.25 mls/ hr Q24H IV 06/16/16 10:00 06/19/16 11:59 Ranitidine HCl/ Dextrose (zANTac IV/D5 100ml) 102 ml @ 200 mls/hr Q8H IV 06/15/16 12:00 07/15/16 09:59 06/16/16 04:17 200 MLS/HR Arformoterol Tartrate (Brovana 15MCG/ 2ML Neb Soln) 15 mcg BIDR INH 06/15/16 20:00 07/15/16 19:59 06/16/16 07:45 15 MCG I & O: 24-Hour Column 06/16/16 07:59 Intake Total 2323 ml Output Total 1300 ml Balance 1023 ml Vital Signs: Date Time Temp Pulse Resp B/P Pulse Ox O2 Delivery O2 Flow Rate FiO2 06/16/16 08:23 94 20 94 Nasal Cannula 2.0 06/16/16 08:00 95 Nasal Cannula 2.0 06/16/16 07:45 90 20 97 Nasal Cannula 2.0 06/16/16 07:00 36.7 50 19 120/69 96 Nasal Cannula 2.0 06/16/16 05:00 51 15 107/71 06/16/16 04:00 60 16 106/63 06/16/16 04:00 95 Nasal Cannula 2.0 06/16/16 04:00 36.5 60 16 106/63 06/16/16 02:30 85 22 95 06/16/16 02:23 96 18 97 Nasal Cannula 2.0 06/16/16 02:00 54 17 110/63 93 06/16/16 01:30 52 17 96 06/16/16 01:00 51 16 123/71 97 06/16/16 00:30 49 15 97 06/16/16 00:00 57 12 107/66 94 06/16/16 00:00 57 12 107/66 94 06/15/16 23:53 61 16 114/68 96 Nasal Cannula 2.0 06/15/16 23:51 96 Nasal Cannula 2.0 06/15/16 23:30 69 15 97 06/15/16 22:00 72 16 94/63 96 Nasal Cannula 2.0 06/15/16 20:46 78 18 96 Nasal Cannula 2.0 06/15/16 20:00 36.8 88 19 121/70 96 Nasal Cannula 2.0 06/15/16 20:00 95 Nasal Cannula 2.0 06/15/16 19:14 72 20 99 Nasal Cannula 3.0 06/15/16 18:00 80 18 101/71 96 Nasal Cannula 2.0 06/15/16 17:57 82 22 97 Nasal Cannula 2.0 06/15/16 16:00 36.7 84 17 92/61 97 Nasal Cannula 2.0 06/15/16 16:00 Nasal Cannula 2.0 06/15/16 16:00 Nasal Cannula 2.0 06/15/16 14:10 84 22 94 Nasal Cannula 2.0 06/15/16 12:00 98 Nasal Cannula 2.0 06/15/16 12:00 95 Nasal Cannula 2.0 06/15/16 12:00 92 25 111/60 97 Nasal Cannula 2.0 06/15/16 11:15 90 22 97 Nasal Cannula 2.5 Laboratory Results: Last 24 Hours Test 06/15/16 11:10 06/15/16 16:45 06/16/16 05:55 Bedside Glucose 152 mg/dl 88 mg/dl White Blood Count 10.42 K/uL Red Blood Count 4.52 M/uL Hemoglobin 12.0 g/dL Hematocrit 37.8 % Mean Corpuscular Volume 83.6 fL Mean Corpuscular Hemoglobin 26.5 pg Mean Corpuscular Hemoglobin Concent 31.7 g/dl Platelet Count 209 K/uL Mean Platelet Volume 9.7 fL Neutrophils (%) (Auto) 77.5 % Lymphocytes (%) (Auto) 16.1 % Monocytes (%) (Auto) 6.0 % Eosinophils (%) (Auto) 0.1 % Basophils (%) (Auto) 0.0 % Neutrophils # (Auto) 8.07 K/uL Lymphocytes # (Auto) 1.68 K/uL Monocytes # (Auto) 0.63 K/uL Eosinophils # (Auto) 0.01 K/uL Basophils # (Auto) 0.00 K/uL RDW Standard Deviation 46.8 fL RDW Coefficient of Variation 15.3 % Immature Granulocyte % (Auto) 0.3 % Immature Granulocyte # (Auto) 0.03 K/uL Sodium Level 141 mmol/L Potassium Level 4.2 mmol/L Chloride Level 107 mmol/L Carbon Dioxide Level 26 mmol/L Anion Gap 8.0 mmol/L Blood Urea Nitrogen 17 mg/dl Creatinine 0.64 mg/dl Est Creatinine Clear Calc Drug Dose 108.4 ml/min Estimated GFR () 124.9 Estimated GFR (Non- 107.8 BUN/Creatinine Ratio 26.4 Random Glucose 110 mg/dl Calcium Level 8.9 mg/dl Phosphorus Level 3.9 mg/dl Magnesium Level 2.3 mg/dl
[2016-06-16] MEDS ORDERED: AZITHROMYCIN 250 MG / D5W 250 ML IV SCH ×2 (10:00)
[2016-06-16] MEDS: AZITHROMYCIN 250 MG TAB PO SCH (10:07)
[2016-06-16] MEDS: LEVALBUTEROL 1.25MG/3ML NEB INH PRN (12:29)
--- NOTE | 2016-06-16 14:06 | Hospitalist Progress Note ---
Hospitalist Progress Note Date of Service June 16, 2016. (Hattie Clay PA-C) Subjective Pt evaluation today including: conversation w/ patient, conversation w/ family , physical exam, chart review, lab review, review of studies, conversation w/ peoplesoft consultant (Parish Caro PA-C), review of inpatient medication list Patient seen and evaluated. Patient with drastic improvement in overall well- being. Brovana was instituted yesterday which seems to have helped. She continues to be significantly wheezy on exam. Patient is more energetic, smiling, laughing, and feeling a lot improved. She is optimal for transfer to Med/Surg. Precedex has been D/C'd. Reports eating and drinking better as less energy needs to be used for breathing. Reporting a more productive cough of thick green sputum. Initially cough was unproductive. She verbalizes no new complaints. Constitutional: No chills, No fever ENT: + nasal symptoms, No sore throat, No trouble swallowing Respiratory: + cough, + dyspnea on exertion, + sputum, + wheezing, No dyspnea at rest Cardiovascular: No chest pain Abdomen: No constipation, No diarrhea, No nausea, No pain, No vomiting Musculoskeletal: No calf pain, No swelling Female : No dysuria Neurologic: No vertigo Psychiatric: + anxiety (improving) Skin: No rash (Hattie Clay, GENESIS) Medications Current Inpatient Medications Medications (Trade) Dose Ordered Sig/Fareed Route Start Time Stop Time Status Last Admin Dose Admin Enoxaparin Sodium (Lovenox Inj) 40 mg DAILY@1600 SQ 06/14/16 16:00 07/14/16 15:59 06/15/16 15:56 40 MG Acetaminophen (Tylenol Tab) 650 mg Q4H PRN PO 06/14/16 09:00 07/14/16 08:59 Al Hydrox/Mg Hydrox/Simethicone (Maalox Max Susp) 15 ml Q4H PRN PO 06/14/16 09:00 07/14/16 08:59 Magnesium Hydroxide (Milk Of Magnesia Susp) 30 ml Q12H PRN PO 06/14/16 09:00 07/14/16 08:59 Ondansetron HCl (Zofran Inj) 4 mg Q6H PRN IV 06/14/16 09:00 07/14/16 08:59 Levalbuterol (Xopenex 1.25MG/ 0.5ML Neb) 1.25 mg Q6R INH 06/14/16 09:00 07/14/16 08:59 06/16/16 08:21 1.25 MG Levalbuterol (Xopenex 1.25MG/ 3ML Neb) 1.25 mg Q2H PRN INH 06/14/16 09:15 07/14/16 09:14 06/16/16 12:29 1.25 MG Ipratropium [place] (Atrovent 0.02% 0.5MG/2.5ML Neb) 0.5 mg Q6R INH 06/14/16 09:00 07/14/16 08:59 06/16/16 08:21 0.5 MG Ketorolac Tromethamine (Toradol Inj) 15 mg Q6H PRN IV 06/14/16 09:45 06/19/16 09:44 06/14/16 20:48 15 MG Diphenhydramine HCl 50 mg 50 mg QID PRN PO 06/14/16 18:45 07/14/16 18:44 06/15/16 21:36 50 MG Methylprednisolone Sodium Succinate 40 mg/Syringe 0.64 ml @ 1.5 mls/min Q8H IV 06/15/16 14:00 07/15/16 13:59 06/16/16 05:53 1.5 MLS/MIN Promethazine HCl/ Sodium Chloride (Phenergan Inj/ Nss 50ml) 50.5 ml @ 202 mls/hr Q6H PRN IV 06/15/16 10:00 07/15/16 09:59 Arformoterol Tartrate (Brovana 15MCG/ 2ML Neb Soln) 15 mcg BIDR INH 06/15/16 20:00 07/15/16 19:59 06/16/16 07:45 15 MCG Azithromycin (Zithromax Tab) 250 mg DAILY PO 06/16/16 10:00 06/19/16 09:01 06/16/16 10:07 250 MG Ranitidine HCl (zANTac TAB) 150 mg BID PO 06/16/16 21:00 07/16/16 20:59 (Hattie Clay, GENESIS) Objective Vital Signs Date Time Temp Pulse Resp B/P Pulse Ox O2 Delivery O2 Flow Rate FiO2 06/16/16 12:29 94 20 94 Nasal Cannula 2.0 06/16/16 12:02 37.2 116 0 115/60 93 Nasal Cannula 2.0 06/16/16 10:00 87 21 93/65 94 Nasal Cannula 2.0 06/16/16 09:00 88 19 115/62 93 2.0 06/16/16 08:23 94 20 94 Nasal Cannula 2.0 06/16/16 08:00 95 Nasal Cannula 2.0 06/16/16 07:45 90 20 97 Nasal Cannula 2.0 06/16/16 07:00 36.7 50 19 120/69 96 Nasal Cannula 2.0 06/16/16 05:00 51 15 107/71 06/16/16 04:00 60 16 106/63 06/16/16 04:00 95 Nasal Cannula 2.0 06/16/16 04:00 36.5 60 16 106/63 06/16/16 02:30 85 22 95 06/16/16 02:23 96 18 97 Nasal Cannula 2.0 06/16/16 02:00 54 17 110/63 93 06/16/16 01:30 52 17 96 06/16/16 01:00 51 16 123/71 97 06/16/16 00:30 49 15 97 06/16/16 00:00 57 12 107/66 94 06/16/16 00:00 57 12 107/66 94 06/15/16 23:53 61 16 114/68 96 Nasal Cannula 2.0 06/15/16 23:51 96 Nasal Cannula 2.0 06/15/16 23:30 69 15 97 06/15/16 22:00 72 16 94/63 96 Nasal Cannula 2.0 06/15/16 20:46 78 18 96 Nasal Cannula 2.0 06/15/16 20:00 36.8 88 19 121/70 96 Nasal Cannula 2.0 06/15/16 20:00 95 Nasal Cannula 2.0 06/15/16 19:14 72 20 99 Nasal Cannula 3.0 06/15/16 18:00 80 18 101/71 96 Nasal Cannula 2.0 06/15/16 17:57 82 22 97 Nasal Cannula 2.0 06/15/16 16:00 36.7 84 17 92/61 97 Nasal Cannula 2.0 06/15/16 16:00 Nasal Cannula 2.0 06/15/16 16:00 Nasal Cannula 2.0 06/15/16 14:10 84 22 94 Nasal Cannula 2.0 (Hattie Clay PA-C) Physical Exam General Appearance: WD/WN, no apparent distress Eyes: sclerae normal ENT: hearing grossly normal Neck: supple, no JVD, trachea midline Respiratory/Chest: no respiratory distress, no accessory muscle use, + wheezing (inspiratory and expiratory; improved air flow) Cardiovascular: no gallop, no murmur, + tachycardia Abdomen: normal bowel sounds, non tender, soft Extremities: no pedal edema Neurologic/Psychiatric: alert, oriented x 3 Skin: normal color, warm/dry (Hattie Clay PA-C) Laboratory Results Last 24 Hours Test 06/15/16 16:45 06/16/16 05:55 Bedside Glucose 88 mg/dl White Blood Count 10.42 K/uL Red Blood Count 4.52 M/uL Hemoglobin 12.0 g/dL Hematocrit 37.8 % Mean Corpuscular Volume 83.6 fL Mean Corpuscular Hemoglobin 26.5 pg Mean Corpuscular Hemoglobin Concent 31.7 g/dl Platelet Count 209 K/uL Mean Platelet Volume 9.7 fL Neutrophils (%) (Auto) 77.5 % Lymphocytes (%) (Auto) 16.1 % Monocytes (%) (Auto) 6.0 % Eosinophils (%) (Auto) 0.1 % Basophils (%) (Auto) 0.0 % Neutrophils # (Auto) 8.07 K/uL Lymphocytes # (Auto) 1.68 K/uL Monocytes # (Auto) 0.63 K/uL Eosinophils # (Auto) 0.01 K/uL Basophils # (Auto) 0.00 K/uL RDW Standard Deviation 46.8 fL RDW Coefficient of Variation 15.3 % Immature Granulocyte % (Auto) 0.3 % Immature Granulocyte # (Auto) 0.03 K/uL Sodium Level 141 mmol/L Potassium Level 4.2 mmol/L Chloride Level 107 mmol/L Carbon Dioxide Level 26 mmol/L Anion Gap 8.0 mmol/L Blood Urea Nitrogen 17 mg/dl Creatinine 0.64 mg/dl Est Creatinine Clear Calc Drug Dose 108.4 ml/min Estimated GFR () 124.9 Estimated GFR (Non- 107.8 BUN/Creatinine Ratio 26.4 Random Glucose 110 mg/dl Calcium Level 8.9 mg/dl Phosphorus Level 3.9 mg/dl Magnesium Level 2.3 mg/dl (Hattie Clay, DEVANC) Assessment and Plan Ms. Erazo is a 46 y/o female with PMHx of Severe Uncontrolled Asthma and Allergic Rhinitis who presents to the ED c/o SOB that started yesterday. She appears in respiratory alkalosis from asthma exacerbation Acute Respiratory Failure due to Asthma Exacerbation with Status Asthmaticus: IMPROVING - Switched to Methylprednisolone 40 mg IV Q8H will not taper at this point as patient continues with significant wheezing - Azithromycin 500 mg x 1 then 250 mg daily - Xopenex and Atrovent nebulizers - as patient is tachycardic - continue these FAREED and PRN - Pulmonology following - patient follows with Dr. Tony - Intensivists following - optimal for transfer to Med/Surg - discussed case -- Plan to continue Brovana and D/C with Breo Ellipta with recommendation for a daily anti-histamine (without sudafed additives) -- As well, for GI issues continue Ranitidine as this would be superior to other acid reducers in setting of asthma and allergies GI Prophylaxis: - Ranitidine 150 mg po BID DVT Prophylaxis: Lovenox 40 mg SC daily; REGAN/SCDs Code Status: FULL RESUSCITATION Disposition: - CT F/U x 1 month for ground glass opacity in RUL - D/C dependent on improvement with exacerbation - anticipate a couple more days - She is optimal for transfer to Med/Surg (Hattie Clay, PA-C)
[2016-06-16] MEDS: ENOXAPARIN 40 MG/0.4 ML SYR SQ SCH ×2 (16:00→20:31)
--- NOTE | 2016-06-16 18:05 | PROGRESS NOTE ---
DATE: 06/16/2016 PULMONARY PROGRESS NOTE PROBLEM LIST: Includes: 1. Status asthmaticus. 2. Pectus excavatum. 3. Ground-glass changes, right upper lobe. 4. Gastroesophageal reflux disease. SUBJECTIVE: The patient reports today that she is feeling much better. She states that her breathing has improved. She states that she is not as tight in her chest. She is not having as much wheezing or chest heaviness. She reports that overall there has been a drastic improvement compared to day before. She states that she has no cough but she is able to get mucus up. She is still wheezing, but she is close to being back to her baseline. She is not as short of breath as she was. No fever or chills, no sweats, no other concerns or problems. No GI symptoms. The patient states that she did have a little bit of reflux after lunch and this seemed to affect her breathing a little bit. No change in her bowels. No difficulty voiding. No swelling in her extremities. OBJECTIVE: GENERAL: The patient is a 46-year-old female, in no acute distress. She is alert and oriented x3. Mood is good. Affect is good. VITAL SIGNS: Temp 37.2, pulse 116, respirations 20, blood pressure is 115/60, pulse ox 93% on 2 liters. HEENT: Normocephalic, atraumatic. Pupils equal, round and reactive to light and accommodation. Extraocular movements are intact. Tony moist gingival and buccal mucosa. NECK: Supple. No mass. No adenopathy. No bruit. CHEST: The patient has some diffuse expiratory wheeze throughout, fair air movement throughout. CARDIOVASCULAR: Regular rate and rhythm. No murmurs, gallops or rubs. ABDOMEN: Soft, nontender. No guarding, rigidity or organomegaly. EXTREMITIES: No erythema or edema. NEUROLOGIC: Cranial nerves II through XII are intact. No focal deficit. LABORATORY DATA: Shows a white count of 10,000, H\T\H of 12.3/37.8, platelet count 209,000. IMAGING DATA: No new imaging data. IMPRESSION: A 46-year-old female with severe asthma, presented with status asthmaticus. At this time the patient does appear to have turned the corner. She is doing better per discussions with nursing staff as well as roller mill tender. The patient is going to be transferred to medical floor sometime later today. At this point, recommend to continue Solu-Medrol 40 mg q. 8 hours with potential to start decreasing it tomorrow if the patient continues to do well. Continue aggressive pulmonary toilet, make sure that the patient is covered with GI prophylaxis. Will continue to follow through her hospitalization. SOFY
[2016-06-16] MEDS: RANITIDINE HCL 150 MG TAB PO SCH (20:30)
[2016-06-17] VITALS (10 sets, daily range): BP systolic 95–116; BP diastolic 57–70; PULSE 71–115; TEMP 36.7–37; O2SAT 92–96
[2016-06-17] MEDS: LEVALBUTEROL 1.25MG/0.5ML NEB INH SCH ×4 (02:38→20:37)
[2016-06-17] MEDS: IPRATROPIUM BROMIDE NEB SOLN 0.02% 2.5 ML VIAL INH SCH ×4 (02:38→20:37)
[2016-06-17] MEDS: METHYLPREDNISOLONE 40 MG in SYRINGE 0 ML IV SCH (05:41)
[2016-06-17] MEDS: ARFORMOTEROL TART 15MCG/2ML VIAL INH SCH ×2 (07:16→20:00)
[2016-06-17] MEDS: AZITHROMYCIN 250 MG TAB PO SCH (08:01)
[2016-06-17] MEDS: RANITIDINE HCL 150 MG TAB PO SCH ×2 (08:01→21:37)
[2016-06-17 08:06] LABS: COMPLETE YES; EOS % 0.2 %; HEMATOCRIT 42.3 % (37-47); IG% 0.1 %; MEAN CELL VOLUME 83.6 fL (80-100); MEAN CORPUSCULAR HEMOGLOBIN 26.9 pg (25-34); MEAN CORPUSCULAR HGB CONC 32.2 g/dl (32-36); MEAN PLATELET VOLUME 10.5 fL (7.4-10.4); MONO % 4.5 %; NEUT % 80.2 %; PLATELET COUNT 293 K/uL (130-400); RED BLOOD COUNT 5.06 M/uL (4.2-5.4); WHITE BLOOD COUNT 10.66 K/uL (4.8-10.8)
--- NOTE | 2016-06-17 08:48 | Hospitalist Progress Note ---
Hospitalist Progress Note Date of Service June 17, 2016. (Hattie Clay PA-C) Subjective Pt evaluation today including: conversation w/ patient, conversation w/ family , physical exam, chart review, lab review, review of studies, conversation w/ residential solar consultant (Discussed with Mor Lindsey PA-C), review of inpatient medication list Patient seen and evaluated. Moved to Med/Surg yesterday and is currently on RA. She states she feels that she is almost at her baseline. Continues to cough thick green sputum. Feels less SOB and less chest restriction. Does report some nausea yesterday that she relates to taking Zithromax on an empty stomach. This has completely resolved. Will discuss with Pulm about possible oral conversion of steroids today to observe for appropriate response before D/Cing home Constitutional: No chills, No fever ENT: + nasal symptoms Respiratory: + cough, + shortness of breath (intermittent - marked improvement), + sputum Cardiovascular: No chest pain Abdomen: No constipation, No diarrhea, No nausea, No pain, No vomiting Musculoskeletal: No calf pain, No swelling Female : No dysuria Skin: No rash (Hattie Clay PA-C) Medications Current Inpatient Medications Medications (Trade) Dose Ordered Sig/Fareed Route Start Time Stop Time Status Last Admin Dose Admin Enoxaparin Sodium (Lovenox Inj) 40 mg DAILY@1600 SQ 06/14/16 16:00 07/14/16 15:59 06/15/16 15:56 40 MG Acetaminophen (Tylenol Tab) 650 mg Q4H PRN PO 06/14/16 09:00 07/14/16 08:59 Al Hydrox/Mg Hydrox/Simethicone (Maalox Max Susp) 15 ml Q4H PRN PO 06/14/16 09:00 07/14/16 08:59 Magnesium Hydroxide (Milk Of Magnesia Susp) 30 ml Q12H PRN PO 06/14/16 09:00 07/14/16 08:59 Ondansetron HCl (Zofran Inj) 4 mg Q6H PRN IV 06/14/16 09:00 07/14/16 08:59 Levalbuterol (Xopenex 1.25MG/ 0.5ML Neb) 1.25 mg Q6R INH 06/14/16 09:00 07/14/16 08:59 06/17/16 02:38 1.25 MG Levalbuterol (Xopenex 1.25MG/ 3ML [facility]) 1.25 mg Q2H PRN INH 06/14/16 09:15 07/14/16 09:14 06/16/16 12:29 1.25 MG Ipratropium [place] (Atrovent 0.02% 0.5MG/2.5ML [facility]) 0.5 mg Q6R INH 06/14/16 09:00 07/14/16 08:59 06/17/16 02:38 0.5 MG Ketorolac Tromethamine (Toradol Inj) 15 mg Q6H PRN IV 06/14/16 09:45 06/19/16 09:44 06/14/16 20:48 15 MG Diphenhydramine HCl 50 mg 50 mg QID PRN PO 06/14/16 18:45 07/14/16 18:44 06/15/16 21:36 50 MG Methylprednisolone Sodium Succinate 40 mg/Syringe 0.64 ml @ 1.5 mls/min Q8H IV 06/15/16 14:00 07/15/16 13:59 06/17/16 05:41 1.5 MLS/MIN Promethazine HCl/ Sodium Chloride (Phenergan Inj/ Nss 50ml) 50.5 ml @ 202 mls/hr Q6H PRN IV 06/15/16 10:00 07/15/16 09:59 Arformoterol Tartrate (Brovana 15MCG/ 2ML Neb Soln) 15 mcg BIDR INH 06/15/16 20:00 07/15/16 19:59 06/17/16 07:16 15 MCG Azithromycin (Zithromax Tab) 250 mg DAILY PO 06/16/16 10:00 06/19/16 09:01 06/17/16 08:01 250 MG Ranitidine HCl (zANTac TAB) 150 mg BID PO 06/16/16 21:00 07/16/16 20:59 06/17/16 08:01 150 MG (Hattie Clay PA-C) Objective Vital Signs Date Time Temp Pulse Resp B/P Pulse Ox O2 Delivery O2 Flow Rate FiO2 06/17/16 07:16 91 18 95 Nasal Cannula 1.0 06/17/16 07:01 36.8 95 16 103/70 92 2.0 06/17/16 02:38 81 18 96 Nasal Cannula 2.0 06/17/16 00:08 36.7 95 20 116/66 95 Nasal Cannula 2.0 06/17/16 00:00 94 Nasal Cannula 2.0 06/16/16 19:15 84 20 94 Nasal Cannula 2.0 06/16/16 16:00 Nasal Cannula 2.0 06/16/16 15:25 36.8 105 20 145/73 98 Nasal Cannula 2.0 06/16/16 14:10 78 20 96 Nasal Cannula 2.0 06/16/16 14:09 37.2 94 20 94 2.0 06/16/16 14:00 99 18 124/69 94 Nasal Cannula 2.0 06/16/16 12:29 94 20 94 Nasal Cannula 2.0 06/16/16 12:02 37.2 116 20 115/60 93 Nasal Cannula 2.0 06/16/16 10:00 87 21 93/65 94 Nasal Cannula 2.0 06/16/16 09:00 88 19 115/62 93 2.0 (Hattie Clay, PA-C) Physical Exam General Appearance: WD/WN, no apparent distress Eyes: sclerae normal ENT: hearing grossly normal Neck: supple, no JVD, trachea midline Respiratory/Chest: no respiratory distress, no accessory muscle use, + wheezing (inspiratory and expiratory - diffuse; improved air flow in all lung degroot) Cardiovascular: no gallop, no murmur, + tachycardia Abdomen: normal bowel sounds, non tender, soft Extremities: no pedal edema, no calf tenderness Neurologic/Psychiatric: alert, oriented x 3 Skin: normal color, warm/dry (Hattie Clay, PA-C) Laboratory Results Last 24 Hours Test 06/17/16 07:25 White Blood Count 10.66 K/uL Red Blood Count 5.06 M/uL Hemoglobin 13.6 g/dL Hematocrit 42.3 % Mean Corpuscular Volume 83.6 fL Mean Corpuscular Hemoglobin 26.9 pg Mean Corpuscular Hemoglobin Concent 32.2 g/dl Platelet Count 293 K/uL Mean Platelet Volume 10.5 fL Neutrophils (%) (Auto) 80.2 % Lymphocytes (%) (Auto) 15.0 % Monocytes (%) (Auto) 4.5 % Eosinophils (%) (Auto) 0.2 % Basophils (%) (Auto) 0.0 % Neutrophils # (Auto) 8.55 K/uL Lymphocytes # (Auto) 1.60 K/uL Monocytes # (Auto) 0.48 K/uL Eosinophils # (Auto) 0.02 K/uL Basophils # (Auto) 0.00 K/uL RDW Standard Deviation 46.4 fL RDW Coefficient of Variation 15.2 % Immature Granulocyte % (Auto) 0.1 % Immature Granulocyte # (Auto) 0.01 K/uL (Hattie Clay PA-C) Assessment and Plan Ms. Erazo is a 46 y/o female with PMHx of Severe Uncontrolled Asthma and Allergic Rhinitis who presents to the ED c/o SOB that started yesterday. She appears in respiratory alkalosis from asthma exacerbation Acute Respiratory Failure due to Asthma Exacerbation with Status Asthmaticus and Allergic Rhinitis: IMPROVING - Prednisone 60 mg IV daily - monitor tolerance prior to D/C and plan for flow taper of 5 mg every 3 days to get her on long-term Prednisone 20 mg - Azithromycin 500 mg x 1 then 250 mg daily needs only 2 more doses to finish on 06/19 - Xopenex and Atrovent nebulizers - continue these FAREED and PRN - Claritin 10 mg daily will not order now as not emergent and to save patient cost - recommend use as outpatient -- Discussed with pulm as this option will have less of a drying effect compared to other anti-histamines - Pulmonology following - patient follows with Dr. Tony - discussed case and plan with Mor Lindsey PA-C - Intensivists followed - transfer to Med/Surg on 06/16 -- Plan to continue Brovana and D/C with Aruna Villarreal with recommendation for a daily anti-histamine (without sudafed additives) -- As well, for GI issues continue Ranitidine as this would be superior to other acid reducers in setting of asthma and allergies Anxiety: - Patient has been asking for recommendations in regards to anxiety medications - fearful to order medications such as benzos due to patient tendency to self medicate with dosages based on her symptoms - Discussed with pulmonology for utilizing Vistaril at a low dose PRN which has the added effect of an antihistamine GI Prophylaxis: - Ranitidine 150 mg po BID DVT Prophylaxis: Lovenox 40 mg SC daily; REGAN/SCDs Code Status: FULL RESUSCITATION Disposition: - CT F/U x 1 month for ground glass opacity in RUL - lung nodule consult - Will monitor after po conversion possible D/C tomorrow vs Monday - Will need F/U appointment with Pulm after D/C Continued [facility] stay due to: multiple IV medications needed Discharge planning: home (Hattie Clay, PA-C)
[2016-06-17 09:08] LABS: BUN/CREATININE RATIO 26.1 (10-20); CALCIUM 9.5 mg/dl (8.5-10.1); CREATININE 0.65 mg/dl (0.60-1.20); MAGNESIUM 2.5 mg/dl (1.8-2.4); PHOSPHORUS 3.5 mg/dl (2.5-4.9); POTASSIUM 4.3 mmol/L (3.5-5.1)
[2016-06-17] MEDS ORDERED: hydrOXYzine HCL 25 MG TAB PO PRN (12:15)
[2016-06-17] MEDS: ENOXAPARIN 40 MG/0.4 ML SYR SQ SCH (16:00)
--- NOTE | 2016-06-17 16:12 | PROGRESS NOTE ---
DATE: 06/17/2016 PROBLEM LIST: 1. Status asthmaticus. 2. Pectus excavatum. 3. Ground-glass changes, right upper lobe. 4. Gastroesophageal reflux disease. SUBJECTIVE: The patient reports significant improvement compared to yesterday. She states that her breathing is feeling much improved today. She states that she did have coughing paroxysms for couple hours overnight, but she was able to bring up a lot of mucus. She states that helped her breathing quite a bit. She states that she still has a little bit of wheeze, but is not nearly as bad and is approaching what her normal is. She states that she has not had a breathing treatment since this morning and feels that she is doing fairly well. She has no chest pain or painful respirations at this time. No palpitations. No chest pressure or heaviness. She feels her breathing is good. No fevers or chills, no sweats. No other concerns or problems. Her appetite is normal She voices no concerns with reflux today. OBJECTIVE: GENERAL: The patient is a 46-year-old female lying in bed in no acute distress. She is alert and oriented x3. Mood is good. Affect is good. VITAL SIGNS: Temp 36.8, pulse 95, respirations 16, blood pressure is 103/70, pulse ox 95% on 1 liter. HEENT: Normocephalic, atraumatic. Pupils are equal, round and reactive to light and accommodation. Extraocular movements are intact. [place] moist gingival and buccal mucosa. NECK: Supple. No mass. No adenopathy. No bruit. CHEST: Diminished. The patient does have some expiratory wheeze throughout, much improved from yesterday. No rale or rhonchi noted. CARDIOVASCULAR: Regular rate and rhythm. No murmurs, gallops or rubs. ABDOMEN: Soft, nontender. No guarding, rigidity or organomegaly. EXTREMITIES: No erythema or edema. NEUROLOGIC: Cranial nerves II-XII are intact. No focal deficit noted. LABORATORY DATA: Shows white count of 10,000, H\T\H 13.6 and 42.3, platelet count 293,000. BUN 17, creatinine 0.65. Sputum culture preliminary showing moderate normal marek. No new imaging. IMPRESSION: This is a 46-year-old female with history of asthma, came in with status asthmaticus. Overall, patient is improving at this time. Breathing is much improved compared to what it was. At this time, we will transition her over to oral prednisone. This was discussed with hospitalist team. We would recommend to slow taper of approximately 5 mg every 3 days until she gets to her baseline of 20 mg a day. Continue aggressive pulmonary toilet. She will be followed up in the office. She has an appointment scheduled on the or 28 of June. She is to continue Brovana and Breo. She will have family members stop by the office to scrap picker samples. She is to continue rest of her medications as they are. She is to contact the office if there is any question or problem. She will be followed up in the office after discharge. SOFY
[2016-06-18 01:38] VITALS: PULSE 90; O2SAT 92
[2016-06-18] MEDS: LEVALBUTEROL 1.25MG/0.5ML NEB INH SCH ×2 (01:38→07:02)
[2016-06-18] MEDS: IPRATROPIUM BROMIDE NEB SOLN 0.02% 2.5 ML VIAL INH SCH ×2 (01:38→07:02)
[2016-06-18 07:02] VITALS: PULSE 81; O2SAT 92
[2016-06-18] MEDS: ARFORMOTEROL TART 15MCG/2ML VIAL INH SCH (07:02)
[2016-06-18 07:23] VITALS: BP 112/71; PULSE 84; TEMP 36.7; O2SAT 92
[2016-06-18 07:26] LABS: BASO % 0.1 %; BASO ABS # 0.01 K/uL (0-0.2); COMPLETE YES; EOS % 4.7 %; HEMATOCRIT 42.4 % (37-47); IG% 0.2 %; LYMPH % 38.5 %; LYMPH ABS # 3.88 K/uL (1.2-3.4); MEAN CELL VOLUME 82.3 fL (80-100); MEAN CORPUSCULAR HEMOGLOBIN 26.4 pg (25-34); MEAN CORPUSCULAR HGB CONC 32.1 g/dl (32-36); MEAN PLATELET VOLUME 10.2 fL (7.4-10.4); MONO % 7.6 %; NEUT % 48.9 %; PLATELET COUNT 303 K/uL (130-400); RED BLOOD COUNT 5.15 M/uL (4.2-5.4); WHITE BLOOD COUNT 10.07 K/uL (4.8-10.8)
[2016-06-18 07:55] LABS: BUN/CREATININE RATIO 30.1 (10-20); CALCIUM 9.1 mg/dl (8.5-10.1); CREATININE 0.72 mg/dl (0.60-1.20); POTASSIUM 3.8 mmol/L (3.5-5.1)
[2016-06-18] MEDS: RANITIDINE HCL 150 MG TAB PO SCH (08:58)
[2016-06-18] MEDS: AZITHROMYCIN 250 MG TAB PO SCH (08:58)
[2016-06-18] MEDS ORDERED: LORATADINE 10 MG TAB PO SCH (09:00)
[2016-06-18] MEDS ORDERED: AZIT-57 PO (10:44)
--- NOTE | 2016-06-18 10:46 | Discharge Instructions ---
Discharge Instructions Date of Service June 18, 2016. Admission Reason for Admission: Acute Respiratory Failure Discharge Discharge Diagnosis / Problem: Bronchial asthma exacerbation Discharge Goals Goal(s): Decrease discomfort, Improve function Activity Recommendations Activity Limitations: as noted below Lifting Limitations: gradually increase as tolerated Exercise/Sports Limitations: gradually increase as tolerated May Resume Sexual Activity: when tolerated Shower/Bathe: no limitations Driving or Machine Use: no limitations . Instructions / Follow-Up Instructions / Follow-Up Pulmonary Medicine in one to two weeks Current Hospital Diet Patient's current hospital diet: Regular Diet Discharge Diet Recommended Diet: AHA Diet (Heart Healthy) Pending Studies Studies pending at discharge: no Laboratory Results Medications (Trade) Dose Ordered Sig/Fareed Route Start Time Stop Time Status Last Admin Dose Admin Prednisone (PredniSONE TAB) 60 mg DAILY PO 06/18/16 09:00 07/18/16 08:59 06/18/16 08:59 60 MG Prednisone (PredniSONE TAB) 60 mg 1400 ONCE PO 06/17/16 14:00 06/17/16 14:01 DC 06/17/16 13:13 60 MG 06/18/16 07:08 Red Blood Count 5.15, Mean Corpuscular Volume 82.3, Mean Corpuscular Hemoglobin 26.4, Mean Corpuscular Hemoglobin Concent 32.1, Mean Platelet Volume 10.2, Neutrophils (%) (Auto) 48.9, Lymphocytes (%) (Auto) 38.5, Monocytes (%) (Auto) 7.6, Eosinophils (%) (Auto) 4.7, Basophils (%) (Auto) 0.1, Neutrophils # (Auto) 4.92, Lymphocytes # (Auto) 3.88, Monocytes # (Auto) 0.77, Eosinophils # (Auto) 0.47, Basophils # (Auto) 0.01 06/18/16 07:08 Test 06/14/16 07:25 06/14/16 07:30 06/14/16 12:48 06/14/16 22:51 Arterial Blood pH 7.46 (7.35-7.45) Arterial Blood Partial Pressure CO2 32 mmHg (35-46) Arterial Blood Partial Pressure O2 74 mm/Hg (80-95) Arterial Blood HCO3 22 mmol/L (19-24) Arterial Blood Oxygen Saturation 95.1 % (90-95) Arterial Blood Base Excess -0.6 mEq/L (-9-1.8) Arterial Blood Gas Delivery 1.5L Km Test POS (POS) Pass Total Bilirubin 0.5 mg/dl (0.2-1) Aspartate Amino Transf (AST/SGOT) 7 U/L (15-37) Alanine Aminotransferase (ALT/SGPT) 23 U/L (12-78) Alkaline Phosphatase 42 U/L (45-117) Total Protein 7.5 gm/dl (6.4-8.2) Albumin 4.0 gm/dl (3.4-5.0) Globulin 3.5 gm/dl (2.5-4.0) Albumin/Globulin Ratio 1.1 (0.9-2) Prothrombin Time 10.8 SECONDS (9.0-12.0) Prothromb Time International Ratio 1.0 (0.9-1.1) Activated Partial Thromboplast Time 23.9 SECONDS (21.0-31.0) Partial Thromboplastin Ratio 0.9 Total Creatine Kinase 42 U/L (26-192) Creatine Kinase MB < 0.5 ng/ml (0.5-3.6) Creatine Kinase MB Ratio (0-3.0) Troponin I < 0.015 ng/ml (0-0.045) Blood Gas Sample Site R Radial Bedside Blood Gas pH (LAB) 7.37 (7.35-7.45) Bedside Blood Gas pCO2 (LAB) 37 mmHg (35-46) Bedside Blood Gas pO2 (LAB) 93 mmHg (80-95) Bedside Blood Gas HCO3 (LAB) 21 meq/L (19-24) Bedside Blood Gas Total CO2 22 mEq/l (24-31) Bedside Blood Gas Base Excess (LAB) -4.0 meq/L (-9-1.8) Bedside Blood Gas O2 Saturation 97.0 % (90-95) Oxygen Delivery Device Cannula Test 06/15/16 05:47 06/17/16 07:25 06/18/16 07:08 06/18/16 07:36 Venous Blood pH 7.43 (7.36-7.41) Venous Blood Partial Pressure CO2 36 mmHg (38.0-50.0) Venous Blood Partial Pressure O2 73 mmHg Venous Blood HCO3 23 mmol/L Venous Blood Oxygen Saturation 93.8 % Venous Blood Base Excess -0.7 mmol/L Human Chorionic Gonadotropin, Qual NEG (NEG) Phosphorus Level 3.5 mg/dl (2.5-4.9) Magnesium Level 2.5 mg/dl (1.8-2.4) White Blood Count 10.07 K/uL (4.8-10.8) Red Blood Count 5.15 M/uL (4.2-5.4) Hemoglobin 13.6 g/dL (12.0-16.0) Hematocrit 42.4 % (37-47) Mean Corpuscular Volume 82.3 fL (80-100) Mean Corpuscular Hemoglobin 26.4 pg (25-34) Mean Corpuscular Hemoglobin Concent 32.1 g/dl (32-36) Platelet Count 303 K/uL (130-400) Mean Platelet Volume 10.2 fL (7.4-10.4) Neutrophils (%) (Auto) 48.9 % Lymphocytes (%) (Auto) 38.5 % Monocytes (%) (Auto) 7.6 % Eosinophils (%) (Auto) 4.7 % Basophils (%) (Auto) 0.1 % Neutrophils # (Auto) 4.92 K/uL (1.4-6.5) Lymphocytes # (Auto) 3.88 K/uL (1.2-3.4) Monocytes # (Auto) 0.77 K/uL (0.11-0.59) Eosinophils # (Auto) 0.47 K/uL (0-0.5) Basophils # (Auto) 0.01 K/uL (0-0.2) RDW Standard Deviation 44.9 fL (36.4-46.3) RDW Coefficient of Variation 14.7 % (11.5-14.5) Immature Granulocyte % (Auto) 0.2 % Immature Granulocyte # (Auto) 0.02 K/uL (0.00-0.02) Anion Gap 5.0 mmol/L (3-11) Est Creatinine Clear Calc Drug Dose 88.8 ml/min Estimated GFR () 117.2 Estimated GFR (Non- 101.1 BUN/Creatinine Ratio 30.1 (10-20) Calcium Level 9.1 mg/dl (8.5-10.1) Bedside Glucose 74 mg/dl (70-90) Date/Time Source Procedure Growth Status 06/14/16 10:55 Nasal MRSA DNA Surveillance Screen - Final Specimen Negative for MRSA by DNA Probe Complete 06/16/16 08:35 Sputum Expectorated Sputum Gram Stain - Final Complete 06/16/16 08:35 Sputum Expectorated Sputum Sputum Culture - Final MODERATE NORMAL CHIP. Complete Medical Emergencies . Who to Call and When: Medical Emergencies: If at any time you feel your situation is an emergency, please call 911 immediately. . Non-Emergent Contact Non-Emergency issues call your: Primary Care Provider . Past History Medical & Surgical History: (1) Asthma with exacerbation . "Provider Documentation" section prepared by Kira Monreal. . VTE Core Measure Inpt VTE Proph given/why not?: Enoxaparin (Lovenox)CYRUS, T.E.Ramirez. Anahi, SCD's
[2016-06-18 11:08] VITALS: BP 112/71; PULSE 84; TEMP 36.7; O2SAT 92
--- NOTE | 2016-06-18 16:57 | Discharge Summary ---
Discharge Summary Date of Service June 18, 2016. Discharge Summary Admission Date: June 14, 2016 at 09:08 Discharge Date: June 18, 2016 Discharge Disposition: Home Principal Diagnosis: Bronchial asthma exacerbation Immunizations: Have You Had Influenza Vaccine: No History of Tetanus Vaccine?: 2WKS History of Pneumococcal: No History of Hepatitis B Vaccine: No Consultations: Electric Welder Helper Pulmonary Medicine Medication Reconciliation New Medications: Azithromycin (Azithromycin) 250 Mg Tab 250 MG PO DAILY for 5 Days, #5 TAB Continued Medications: Arformoterol Tartrate (Brovana) 15 Mcg/2 Ml Neb 1 VIAL NEB BID for 90 Days, #320 ML 3 Refills Ipratropium-Albuterol (Duoneb) Hailey 1 TREATMENT INH Q4H PRN for Shortness of Breath, INHA Prednisone (Prednisone) 20 Mg Tab 1 TAB PO DAILY for 5 Days, #5 TAB On taper has 1 more dose of 20 mg then drops to 10 mg Discharge Exam Physical Exam: General Appearance: WD/WN Eyes: normal inspection ENT: normal ENT inspection Neck: supple, no JVD Respiratory/Chest: chest non-tender, lungs clear Cardiovascular: regular rate, rhythm, no edema, no murmur Abdomen / GI: normal bowel sounds, non tender, soft Extremities: normal inspection, no calf tenderness Neurologic/Psychiatric: creative arts therapist II-XII nml as tested, no motor/sensory deficits , alert, oriented x 3 Skin: normal color Hospital Course Ms. Erazo is a 46 y/o female with PMHx of Severe Uncontrolled Asthma and Allergic Rhinitis who presents to the ED c/o SOB that started yesterday. She reports on Monday she developed nasal congestion and sneezing. She states her allergic rhinitis is a common culprit for her asthma exacerbations. As the symptoms progressed, her shortness of breath intensified. The shortness of breath was worse yesterday and she got no relief with multiple uses of inhalers , nebulizers, and 80 mg of prednisone. She reports associated auditory wheezing. Also complains of a cough that is largely unproductive. Occasionally will get thick green sputum but this is rare. Associated pleuritic chest pain that is common with her asthma exacerbations but is more uncomfortable at this time. She reports her last asthma exacerbation was approximately 1-1/2 weeks ago however this responded to her home medications. She follows with Dr. Toyn and reports 3 bronchoscopies in the past 4 years. To her knowledge no abnormal findings seen on these procedures. Her last bronchoscopy was in January 2016. She has never required intubation with her asthma exacerbations. She reports a long history of uncontrolled asthma with multiple medication trials. She feels that nothing has completely helped her asthma long-term. Has recently stopped Nucala as she reports an allergic reaction requiring hospitalization in [place]. In the ED, she received Decadron 10 mg 1 and DuoNeb nebulizer with reported no relief. She was initially saturating on room air adequately with one reading at 88 which responded to 2 L nasal cannula. She is tachycardic with EKG reading normal sinus rhythm. Respirations ranging from 20-28. ABG suggest respiratory alkalosis with a pH of 7.46, PCO2 32, and HCO3 22. CXR is unremarkable for consolidation. Due to no response with steroids and breathing treatment she will be placed in the ICU at this time. A/P Ms. Erazo is a 46 y/o female with PMHx of Severe Uncontrolled Asthma and Allergic Rhinitis who presents to the ED c/o SOB that started yesterday. She appears in respiratory alkalosis from asthma exacerbation Acute Respiratory Failure due to Asthma Exacerbation with Status Asthmaticus and Allergic Rhinitis: IMPROVING - Prednisone 60 mg IV daily - monitor tolerance prior to D/C and plan for flow taper of 5 mg every 3 days to get her on long-term Prednisone 20 mg - Azithromycin 500 mg x 1 then 250 mg daily needs only 2 more doses to finish on 06/19 - Xopenex and Atrovent nebulizers - continue these GLO and PRN - Claritin 10 mg daily will not order now as not emergent and to save patient cost - recommend use as outpatient -- Discussed with pulm as this option will have less of a drying effect compared to other anti-histamines - Pulmonology following - patient follows with Dr. Tony - discussed case and plan with DEVAN BarrC - Intensivists followed - transfer to Med/Surg on 06/16 -- Plan to continue Brovana and D/C with Aruna Villarreal with recommendation for a daily anti-histamine (without sudafed additives) -- As well, for GI issues continue Ranitidine as this would be superior to other acid reducers in setting of asthma and allergies Anxiety: - Patient has been asking for recommendations in regards to anxiety medications - fearful to order medications such as benzos due to patient tendency to self medicate with dosages based on her symptoms - Discussed with pulmonology for utilizing Vistaril at a low dose PRN which has the added effect of an antihistamine GI Prophylaxis: - Ranitidine 150 mg po BID DVT Prophylaxis: Lovenox 40 mg SC daily; REGAN/SCDs Code Status: FULL RESUSCITATION Disposition: - CT F/U x 1 month for ground glass opacity in RUL - lung nodule consult - Will need F/U appointment with Pulm after D/C Total Time Spent: Greater than 30 minutes This includes examination of the patient, discharge planning, medication reconciliation, and communication with other providers. Discharge Instructions Please refer to the electronic Patient Visit Report (Discharge Instructions) for additional information. Follow-Up Pulmonary Medicine in one week. PCP in one week
== END 2016-06-18 12:30 | disposition home or self-care (01) | DRG 203 ==
LOC: ENRESERVTM → ENRESERVDT → C.EDB 05:14 → C.MSICU 09:08 → C.MS2W 06-16 14:46
PROVIDERS: ADMIT Internal Medicine; ATTEND Internal Medicine
DX: J45.901 Unspecified asthma with (acute) exacerbation (principal); R91.1 Solitary pulmonary nodule; K21.9 Gastro-esophageal reflux disease without esophagitis; Z87.01 Personal history of pneumonia (recurrent); Q67.6 Pectus excavatum

== ENCOUNTER 2017-01-05 11:11 | Observation (INO) | payer OTHER ==
[~2017-01-05] VITALS: Ht 162.6 cm; Wt 65.0 kg
[2017-01-05] VITALS (8 sets, daily range): BP systolic 105–133; BP diastolic 59–81; PULSE 53–94; TEMP 36.6–36.9; O2SAT 93–100; Ht 162.6 cm; Wt 65.0 kg
[~2017-01-05 11:11] MED LIST changes: +AZIT-57 PO; -MEPO1INJ INJ
[2017-01-05] MEDS ORDERED: IPRASOL4 INH ×2 (12:09→12:10)
[2017-01-05] MEDS ORDERED: PRED-603 PO (12:10)
[2017-01-05] MEDS ORDERED: SODIUM CHLORIDE 0.9% 1000ML 1,000 ML IV STA (12:21)
[2017-01-05 12:38] LABS: BASO % 0.4 %; BASO ABS # 0.04 K/uL (0-0.2); COMPLETE YES; EOS % 1.6 %; HEMATOCRIT 42.9 % (37-47); IG% 0.5 %; LYMPH % 14.9 %; LYMPH ABS # 1.62 K/uL (1.2-3.4); MEAN CELL VOLUME 87.9 fL (80-100); MEAN CORPUSCULAR HEMOGLOBIN 28.9 pg (25-34); MEAN CORPUSCULAR HGB CONC 32.9 g/dl (32-36); MEAN PLATELET VOLUME 10.4 fL (7.4-10.4); MONO % 4.6 %; PLATELET COUNT 289 K/uL (130-400); RED BLOOD COUNT 4.88 M/uL (4.2-5.4); WHITE BLOOD COUNT 10.85 K/uL (4.8-10.8)
[2017-01-05 12:44] LABS: BUN/CREATININE RATIO 13.6 (10-20); CALCIUM 9.1 mg/dl (8.5-10.1); CREATININE 0.79 mg/dl (0.60-1.20); POTASSIUM 3.9 mmol/L (3.5-5.1)
[2017-01-05 13:33] LABS: URINE APPEARANCE TURBID (CLEAR); URINE BILIRUBIN NEG (NEG); URINE COLOR DK YELLOW; URINE EPITHELIAL CELL AUTO >30 /lpf (0-5); URINE NITRITE NEG (NEG); URINE PH 7.5 (4.5-7.5); URINE SPECIFIC GRAVITY 1.018 (1.000-1.030); UROBILINOGEN NEG (NEG)
[2017-01-05 13:40] LABS: MANUAL MICROSCOPIC REQUIRED? NO; REVIEW REQ? YES
[2017-01-05 13:49] LABS: URINE PATH CASTS 0-3 GRANULAR CASTS /lpf (0)
--- NOTE | 2017-01-05 14:15 | DIAGNOSTIC IMAGING REPORT ---
TWO VIEW CHEST CLINICAL HISTORY: Right upper quadrant abdominal pain. FINDINGS: PA and lateral chest radiographs are compared to study dated 06/15/2016 and correlated with chest CT dated 06/14/2016. The PA view is degraded by apical lordotic positioning. The cardiomediastinal silhouette is unremarkable. The lungs and pleural spaces are clear. There is no pneumothorax. There is a healed right-sided rib fracture. A pectus deformity is noted. IMPRESSION: 1. No active disease in the chest. 2. The groundglass focus in the right upper lobe seen by CT on 06/14/2016 is not apparent by x-ray. Nonemergent CT follow-up is recommended to document resolution. Electronically signed by: Parish De Leon M.D. 01/05/2017 2:14 PM Dictated Date/Time: 01/05/2017 2:12 PM
[2017-01-05] MEDS ORDERED: LACTATED RINGER'S 1000ML 1,000 ML IV SCH (14:30)
--- NOTE | 2017-01-05 14:39 | History and Physical ---
History & Physical Date & Time of Service: Jan 05, 2017 at 14:22 Chief Complaint: Abdominal Pain, Gallbladder Issues Primary Care Physician: Saud Marrero M.D. History of Present Illness Source: patient Patient presents to the ER today due to RUQ pain accompanied by not being able to eat. She is a patient of Dr. Whiting's. States she has a history of lung issues but does not have a diagnosed etiology. She currently takes prednisone to help with her breathing. She was seen by her family doctor today who ended up sending her to the ER due to her inability to eat. Whenever she eats fatty foods or chocolate she experiences increased RUQ pain, bloating and her breathing gets puffy per patient. U/S from 12/23/2016 showed gallstones without evidence of cholecystitis and multiple gallbladder polyps, the largest measuring 5mm. She has lost 60 lbs due to her reduced eating habits. States she had a small bowel of cereal around 7am. Denies nausea, vomiting at this time. Denies fever, chills, yellowing of the skin/sclera. Patient does not currently take any blood thinner or anticoagulant medications. Denies any previous abdominal surgeries in the past. Past Medical/Surgical History Medical Problems: (1) Acute respiratory failure Status: Resolved (2) ASTHMA W STATUS ASTHMAT Status: Chronic (3) Echocardiogram Status: Resolved (4) FX DISTAL RADIUS NEC-CL Status: Resolved (5) Pericardial effusion Status: Chronic (6) Pneumonia Status: Chronic (7) Tonsillectomy Status: Resolved Family History Diabetes mellitus Heart Disease Social History Smoking Status: Never Smoker Smokeless Tobacco Use: No Alcohol Use: none Drug Use: none Marital Status: Housing status: lives with significant other Occupational Status: other Immunizations History of Influenza Vaccine: No History of Tetanus Vaccine?: 2WKS History of Pneumococcal: No History of Hepatitis B Vaccine: No Multi-Drug Resistant Organisms History of MDRO: No Allergies Coded Allergies: Eggs or Egg-derived Products (Verified Allergy, Severe, Allergy testing with high reactivity in 2012, 01/05/17) Patient notes that she eats eggs Mepolizumab (Verified Allergy, Severe, Hives / paroxysmal bronchospasm, ) Lactose (Verified Allergy, Mild, Allergy testing in 2012, 01/05/17) Patient avoids dairy products Mouse Protein (Verified Allergy, Unknown, RESPIRATORY DISTRESS, 01/05/17) Sorbitan (Verified Allergy, Unknown, RESPIRATORY DISTRESS, 01/05/17) Home Medications Scheduled Ipratropium-Albuterol (Duoneb), 1 TREATMENT INH QID Prednisone (Deltasone), 30 MG PO DAILY Review of Systems Constitutional: + weight loss (60 lbs ), No fever, No chills, No sweats Respiratory: + problem reported (Breathing issues after eating food and with activity - ongoing - currently on steroid therapy.), No cough, No sputum, No wheezing Cardiovascular: No chest pain Abdomen: + pain (RUQ), + constipation (She has been constipated for as long as she can remember), No nausea, No vomiting, No diarrhea Genitourinary - Female: No dysuria, No urinary frequency, No urinary urgency, No urinary incontinence, No hematuria Hematologic / Lymphatic: No abnormal bleeding/bruising, No clotting problems Integumentary: No rash, No color change Physical Exam Vital Signs Date Time Temp Pulse Resp B/P (MAP) Pulse Ox O2 Delivery O2 Flow Rate FiO2 01/05/17 13:56 84 20 102/62 95 Room Air 01/05/17 13:24 75 01/05/17 13:10 79 18 106/66 93 Room Air 01/05/17 11:17 37.2 97 16 118/73 94 Room Air General Appearance: WD/WN, no apparent distress Head: normocephalic, atraumatic Eyes: normal inspection ENT: hearing grossly normal Neck: trachea midline Respiratory/Chest: chest non-tender, lungs clear, normal breath sounds, no respiratory distress, no accessory muscle use Cardiovascular: regular rate, rhythm, no edema, no gallop, no murmur Abdomen/GI: normal bowel sounds, soft, no organomegaly, no pulsatile mass, + tenderness (RUQ), + distended (RUQ) Neurologic/Psych: alert, normal mood/affect, oriented x 3 Skin: normal color, warm/dry, no rash Diagnostics Laboratory Results Results Past 24 Hours Test 01/05/17 11:48 01/05/17 13:08 Range/Units White Blood Count 10.85 4.8-10.8 K/uL Red Blood Count 4.88 4.2-5.4 M/uL Hemoglobin 14.1 12.0-16.0 g/dL Hematocrit 42.9 37-47 % Mean Corpuscular Volume 87.9 80-100 fL Mean Corpuscular Hemoglobin 28.9 25-34 pg Mean Corpuscular Hemoglobin Concent 32.9 32-36 g/dl Platelet Count 289 130-400 K/uL Mean Platelet Volume 10.4 7.4-10.4 fL Neutrophils (%) (Auto) 78.0 % Lymphocytes (%) (Auto) 14.9 % Monocytes (%) (Auto) 4.6 % Eosinophils (%) (Auto) 1.6 % Basophils (%) (Auto) 0.4 % Neutrophils # (Auto) 8.47 1.4-6.5 K/uL Lymphocytes # (Auto) 1.62 1.2-3.4 K/uL Monocytes # (Auto) 0.50 0.11-0.59 K/uL Eosinophils # (Auto) 0.17 0-0.5 K/uL Basophils # (Auto) 0.04 0-0.2 K/uL RDW Standard Deviation 45.4 36.4-46.3 fL RDW Coefficient of Variation 14.1 11.5-14.5 % Immature Granulocyte % (Auto) 0.5 % Immature Granulocyte # (Auto) 0.05 0.00-0.02 K/uL Sodium Level 138 136-145 mmol/L Potassium Level 3.9 3.5-5.1 mmol/L Chloride Level 108 98-107 mmol/L Carbon Dioxide Level 28 21-32 mmol/L Anion Gap 2.0 3-11 mmol/L Blood Urea Nitrogen 11 7-18 mg/dl Creatinine 0.79 0.60-1.20 mg/dl Est Creatinine Clear Calc Drug Dose 77.7 ml/min Estimated GFR () 104.8 Estimated GFR (Non- 90.4 BUN/Creatinine Ratio 13.6 10-20 Random Glucose 119 70-99 mg/dl Calcium Level 9.1 8.5-10.1 mg/dl Total Bilirubin 0.5 0.2-1 mg/dl Direct Bilirubin 0.1 0-0.2 mg/dl Aspartate Amino Transf (AST/SGOT) 11 15-37 U/L Alanine Aminotransferase (ALT/SGPT) 25 12-78 U/L Alkaline Phosphatase 43 45-117 U/L Total Protein 7.1 6.4-8.2 gm/dl Albumin 3.9 3.4-5.0 gm/dl Lipase 147 73-393 U/L Urine Color DK YELLOW Urine Appearance TURBID CLEAR Urine pH 7.5 4.5-7.5 Urine Specific [place] 1.018 1.000-1.030 Urine Protein NEG NEG Urine Glucose (UA) NEG NEG Urine Ketones NEG NEG Urine Occult Blood NEG NEG Urine Nitrite NEG NEG Urine Bilirubin NEG NEG Urine Urobilinogen NEG NEG Urine Leukocyte Esterase SMALL NEG Urine WBC (Auto) 10-30 0-5 /hpf Urine RBC (Auto) 5-10 0-4 /hpf Urine Hyaline Casts (Auto) 10-30 0-5 /lpf Urine Epithelial Cells (Auto) >30 0-5 /lpf Urine Bacteria (Auto) 1+ NEG Urine Crystals AMORPHOUS SEDIMENT NONE PRSENT Urine Pathogenic Casts 0-3 GRANULAR CASTS 0 /lpf Diagnostic Radiology U/S 12/23/2016: gallstone without evidence of acute cholecystitis multiple gallbladder polyps, largest = 5mm CXR normal Impression Assessment and Plan RUQ pain and symptoms with food likely related to a gallbladder etiology - weight loss is concerning. Will make NPO - last ate this AM. Patient will be scheduled for laparoscopic cholecystectomy with Dr. Whiting today Pre-op EKG ordered Please feel free to contact with any questions or concerns. Thank you. ASA Classification: ASA Class II Level of Care Med/Surg Resuscitation Status FULL RESUSCITATION VTE Prophylaxis VTE Risk Assessment Done? Y/N: Yes Risk Level: Moderate Given or contraindicated: T.E.D. Stockings, SCD's Social Service Consult None Apply
[2017-01-05] MEDS ORDERED: CEFOXITIN IV 2,000 MG in SYRINGE 11 ML IV ONE (15:15)
[2017-01-05] MEDS ORDERED: LIDOCAINE/EPINEPHRINE 1% 20 ML VIAL ONE (15:15)
[2017-01-05] MEDS ORDERED: CONRAY 60% 50 ML VIAL ONE (15:15)
--- NOTE | 2017-01-05 15:15 | History & Physical Bridge Note ---
H&P Re-Evaluation Bridge Note: I have examined the patient, reviewed the History & Physical and in the interval since the performance of the History & Physical I have noted the following changes of clinical significance: No changes notedpt with ruq tenderness deep palpation, unable to eat documented ccc will plan for lap faisal thompson today ate cereal at 8 AM anesthesia plans to do at 4:30 PM
[2017-01-05] MEDS ORDERED: FENTANYL CITRATE INJ 50 MCG/1 ML 2 ML VIAL ONE ×3 (15:41→17:27)
[2017-01-05] MEDS ORDERED: MIDAZOLAM HCL 1 MG/ML 2ML VIAL ONE (15:41)
[2017-01-05 15:51] LABS: PREG INTERNAL NEGATIVE QC NEG CLEAR BACKGROUND; PREG INTERNAL POSITIVE QC POS CONTROL LINE
[2017-01-05] MEDS ORDERED: ALBUT/IPRATROP 3MG/0.5MG NEB 3 ML VIAL INH STA (15:55)
[2017-01-05] MEDS ORDERED: EpHEDrine SULFATE INJ 50 MG/ML AMP IV PRN (16:00)
[2017-01-05] MEDS ORDERED: HYDROmorphone INJ 1 MG/ML SYR IV PRN (16:00)
[2017-01-05] MEDS ORDERED: PROMETHAZINE HCL INJ 12.5 MG in SODIUM CHLORIDE 0.9% 50ML 50 ML IV PRN (16:00)
[2017-01-05] MEDS ORDERED: ALBUT/IPRATROP 3MG/0.5MG NEB 3 ML VIAL INH PRN (16:00)
[2017-01-05] MEDS ORDERED: ATROPINE SULFATE 0.1 MG/ML 5ML SYR IV PRN (16:00)
[2017-01-05] MEDS ORDERED: ONDANSETRON INJ 2 MG/ML 2 ML VIAL IV PRN ×2 (16:00→17:30)
[2017-01-05] MEDS ORDERED: DEXAMETHASONE SOD INJ 4 MG/ML VIAL ONE (16:32)
[2017-01-05] MEDS ORDERED: SUCCINYLCHOLINE CHLORIDE 20 MG/ML 10 ML VIAL IV ONE (16:32)
[2017-01-05] MEDS ORDERED: ONDANSETRON INJ 2 MG/ML 2 ML VIAL ONE (16:32)
[2017-01-05] MEDS ORDERED: LIDOCAINE HCL 2% 2 ML VIAL (20MG/ML) ONE (16:32)
[2017-01-05] MEDS ORDERED: ROCURONIUM BROMIDE 10 MG/ML 5 ML VIAL IV ONE (16:32)
[2017-01-05] MEDS ORDERED: PROPOFOL IV EMULSION 10 MG/ML 20 ML VIAL IV ONE (16:32)
--- NOTE | 2017-01-05 17:05 | DIAGNOSTIC IMAGING REPORT ---
ADDENDUM Upon further review of the case, the duodenum is noted within the left upper abdomen concerning for possible malrotation. This finding could be further evaluated with upper GI series and/or CT of the abdomen with oral contrast. Electronically signed by: Lance Day M.D. 01/06/2017 7:20 AM Dictated Date/Time: 01/06/2017 7:18 AM ORIGINAL REPORT CHOLANGIOGRAM O.R. HISTORY: 46 years-old Female LAP PHUONG status post laparoscopic cholecystectomy. COMPARISON: None available TECHNIQUE: 6 spot fluoroscopic images of the right upper abdomen were obtained utilizing 7.3 seconds fluoroscopy time. FINDINGS: There is cannulation of the cystic duct. Surgical clips are noted adjacent to the cystic duct compatible with cholecystectomy. There is contrast opacification of the cystic duct, common bile duct and intrahepatic biliary tree which appears unremarkable without dilation, stricturing or focal filling defects. There is subsequent spilling of contrast from the common bile duct into the duodenum. No evidence of biliary obstruction. IMPRESSION: Fluoroscopic assistance as above. Please see procedural report for further details. The above report was generated using voice recognition software. It may contain grammatical, syntax or spelling errors. Electronically signed by: Lance Day M.D. 01/05/2017 5:04 PM Dictated Date/Time: 01/05/2017 5:01 PM
[2017-01-05] MEDS ORDERED: GLYCOPYRROLATE INJ 0.2 MG/ML VIAL ONE (17:16)
[2017-01-05] MEDS ORDERED: NEOSTIGMINE METHYLSULFATE 5 MG/5 ML SYR ONE (17:16)
--- NOTE | 2017-01-05 17:20 | [facility] Operative Report ---
Operative Report Operative Date Jan 05, 2017. Pre-Operative Diagnosis accc Post-Operative Diagnosis same Procedure(s) Performed Laparoscopic Cholecystectomy with Cholangeogram Surgeon Dr. Whiting Hoisting Laborer Surgeon(s) Timothy Kendrick PA-C Estimated Blood Loss 5cc Findings accc cbd left of midline question partial malrotation Indications ruq pain stones and weight loss Description of Procedure OR summary confirmation number [id number] I attest to the content of the Intraoperative Record and any orders documented therein. Any exceptions are noted below.
[2017-01-05] MEDS ORDERED: MoRPHine SULFATE 4 MG/ML 1 ML CARP\\VIAL IV PRN (17:30)
[2017-01-05] MEDS ORDERED: CEFOXITIN IV 2,000 MG in DEXTROSE 5% 50ML 50 ML IV SCH (17:30)
[2017-01-05] MEDS: FENTANYL CITRATE INJ 50 MCG/1 ML 2 ML VIAL IV PRN ×3 (17:37→17:50)
--- NOTE | 2017-01-05 18:06 | Anesthesiology Progress Note ---
Anesthesia Post Op Note Date & Time Jan 05, 2017 at 18:06 Vital Signs Pain Intensity: 2.3 Vital Signs Past 12 Hours Date Time Temp Pulse Resp B/P (MAP) Pulse Ox O2 Delivery O2 Flow Rate FiO2 01/05/17 17:45 54 14 116/55 100 Oxymask 4 01/05/17 17:35 62 14 118/54 100 Oxymask 7 01/05/17 17:26 36.4 76 14 115/74 100 Oxymask 7 01/05/17 15:54 70 16 93 Room Air 01/05/17 15:40 36.6 71 16 118/71 (87) 95 Room Air 01/05/17 15:20 65 16 105/61 95 Room Air 01/05/17 13:56 84 20 102/62 95 Room Air 01/05/17 13:24 75 01/05/17 13:10 79 18 106/66 93 Room Air 01/05/17 11:17 37.2 97 16 118/73 94 Room Air Notes Mental Status: alert / awake / arousable, participated in evaluation Pt Amnestic to Procedure: Yes Nausea / Vomiting: adequately controlled Pain: adequately controlled Airway Patency, RR, SpO2: stable & adequate BP & HR: stable & adequate Hydration State: stable & adequate Anesthetic Complications: no major complications apparent
--- NOTE | 2017-01-05 18:35 | OPERATIVE REPORT ---
DATE OF OPERATION: 01/05/2017 SURGEON: Cornelio Whiting MD. AUTOMOTIVE GENERAL MANAGER: Timothy Kendrick PA-C. PREOPERATIVE DIAGNOSIS: Acute and chronic cholecystitis, cholelithiasis. POSTOPERATIVE DIAGNOSIS: Same. PROCEDURE: Laparoscopic cholecystectomy, intraoperative cholangiogram. SUMMARY: The patient was brought into the operating room under general anesthesia, the abdomen was prepped with Betadine solution and properly draped. We made a small transverse incision above the umbilicus. The patient had a small umbilical hernia in that area and we tried to stay away with it. At this point, we placed CO2, followed by a 5 mm trocar. Point of entry inspected and no injury identified. Under direct visualization, we placed a 5 mm epigastric, two 5 mm subcostal port and we were able to identify the gallbladder placed, elevated it and found she had adhesions to the gallbladder with some edema appreciated along the wall. We took down the adhesions and went down towards the sima hepatis, identified the triangle of Calot. We identified the artery actually was posterior to the cystic duct. We were able to mobilize it first, then doubly clip and divide it. Then, a small opening in the cystic duct was made after clipped them proximally. A #4 urethral catheter placed in the cystic duct. 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 At this point, there were no filling defects. We doubly clipped the cystic duct after removing the catheter. We took the gallbladder off which was quite long and redundant with chronic inflammation and some acute inflammation of the liver. We tried to leave as much as posterior peritoneum as possible. Once we placed the gallbladder in an Endopouch, took it out intact through the epigastric port. We opened at the end and had significant cholesterolosis and also some debris. The subhepatic and suprahepatic area was then checked for hemostasis and appeared satisfactory. We did look into the cecum and appeared to be in the right lower quadrant as would probably a retrocecal appendix, but there was moderate distention of the duodenum as stated with the entry of the common bile duct to the left of the midline. We will probably try to obtain a CAT scan of the abdomen of the patient in the future to further document that this malrotation may be accounting for a part of her problems of weight lose. Wounds were then closed by removing the individual trocars under direct visualization after placing the camera in subcostal ports and visualized the umbilical opening. The hernia itself had just some falciform ligament in it. Wounds were closed with 4-0 Monocryl. Steri-Strips applied. The procedure was tolerated well by the patient and was taken to recovery room in good condition. I attest to the content of the Intraoperative Record and any orders documented therein. Any exception s are noted below.
[2017-01-05] MEDS: OXYCODONE/ACETAMINOPHEN 5-325 TAB PO PRN ×2 (19:19→23:33)
[2017-01-05] MEDS ORDERED: PANT40TA PO (19:35)
[2017-01-05] MEDS ORDERED: ZNT150 PO (19:35)
--- NOTE | 2017-01-05 19:46 | Medical Consult ---
Consultation Date of Consultation: Jan 05, 2017. Attending Physician: Cornelio Whiting M.D. Reason for Consultation: Medical Management History of Present Illness Ms. Erazo is a 46 y/o [place] female with PMHx of Severe Persistent Uncontrolled Asthma and GERD who is S/P Thor Lexie on 01/05. Patient is familiar to me from previous admission for severe asthma attack requiring initial ICU admission. Patient has had long-standing asthma that has been difficult to control and follows with Dr. Brown. She has never required intubation for her asthma exacerbation. She reports her asthma is still an ongoing issue but she has not had a significant asthma attack since her admission in June. Previously was having nearly monthly admissions for her asthma. She has tried numerous regimens with none being greatly effective. There is an element of non- compliance on the patient's part when she feels the medications are not working. Currently utilizes Duoneb treatments daily and does have Breo but does not always use it. She has permission from her community to run a generator and air conditioner due to her asthma. Outpatient reports show her IgE is improving. She does feel are asthma is slowly getting under control but is steroid dependent. She has had a difficult time weaning from this. She is currently on Prednisone 15 mg BID. Outpatient records reveal a lower dose but patient does have a tendency to adjust her steroid doses. She was recently diagnosed with reflux. She has tried Ranitidine, Pepcid, and Protonix as monotherapies but never dual therapy. It is believed that her GERD has been impacting her asthma. Did print Rxs for her to trial x 14 days. She has had an associated 60 lbs weight loss attributed to a vegetarian diet but also due to lack of appetite. She thought she was getting food allergies but has been dealing with this RUQ pain. Currently she is pain free and tolerating diet. She denies SOB but does note she is wheezing. She also had severe allergic rhinitis which she is happy to report is resolved. Past Medical/Surgical History 1. Severe Persistent Asthma 2. GERD Family History Diabetes mellitus Heart Disease Social History Smoking Status: Never Smoker Smokeless Tobacco Use: No Alcohol Use: none Drug Use: none Marital Status: Housing Status: lives with family Occupation Status: other Allergies Coded Allergies: Eggs or Egg-derived Products (Verified Allergy, Severe, Allergy testing with high reactivity in 2012, 01/05/17) Patient notes that she eats eggs Mepolizumab (Verified Allergy, Severe, Hives / paroxysmal bronchospasm, ) Lactose (Verified Allergy, Mild, Allergy testing in 2012, 01/05/17) Patient avoids dairy products Mouse Protein (Verified Allergy, Unknown, RESPIRATORY DISTRESS, 01/05/17) Sorbitan (Verified Allergy, Unknown, RESPIRATORY DISTRESS, 01/05/17) Current Inpatient Medications Current Inpatient Medications Medications (Trade) Dose Ordered Sig/Fareed Route Start Time Stop Time Status Last Admin Dose Admin Fentanyl Citrate (Fentanyl Inj) 25 mcg Q5M PRN IV 01/05/17 16:00 01/05/17 21:00 01/05/17 17:50 25 MCG Hydromorphone HCl (Dilaudid Inj) 0.5 mg Q5M PRN IV 01/05/17 16:00 01/05/17 21:00 Ondansetron HCl (Zofran Inj) 4 mg ONE PRN IV 01/05/17 16:00 01/05/17 21:00 Promethazine HCl 12.5 mg/Sodium Chloride 50.5 ml @ 202 mls/hr ONE PRN IV 01/05/17 16:00 01/05/17 21:00 Ephedrine Sulfate (EpHEDrine SULFATE INJ) 5 mg Q5M PRN IV 01/05/17 16:00 01/05/17 21:00 Atropine Sulfate (Atropine Sulfate 0.1MG/Ml Inj) 0.5 mg Q1M PRN IV 01/05/17 16:00 01/05/17 21:00 Albuterol/ Ipratropium (Duoneb) 3 ml ONE PRN INH 01/05/17 16:00 01/05/17 21:00 Lactated Ringer's 1,000 ml @ 100 mls/hr Q10H IV 01/05/17 19:00 02/04/17 18:59 Ondansetron HCl (Zofran Inj) 4 mg Q4H PRN IV 01/05/17 17:30 02/04/17 17:29 Oxycodone/ Acetaminophen (Percocet 5-325mg Tab) 1 tab Q4H PRN PO 01/05/17 17:30 01/19/17 17:29 01/05/17 19:19 1 TAB Morphine Sulfate (MoRPHine SULFATE INJ) 4 mg Q1H PRN IV 01/05/17 17:30 01/19/17 17:29 Albuterol/ Ipratropium (Duoneb) 1 ml QID INH 01/05/17 21:00 02/04/17 20:59 Prednisone (PredniSONE TAB) 30 mg DAILY PO 01/06/17 09:00 02/05/17 08:59 Cefoxitin Sodium 2000 mg/Syringe 21 ml @ 4.2 mls/min Q6H IV 01/05/17 21:00 01/06/17 20:59 Ranitidine HCl (zANTac TAB) 150 mg QAM PO 01/06/17 09:00 02/05/17 08:59 UNV Pantoprazole Sodium (Protonix Tab) 40 mg QAM PO 01/06/17 09:00 02/05/17 08:59 UNV Review of Systems Constitutional: + weight loss (60+ partially intentional but largely due to lack of appetite), No fever, No chills ENT: No nasal symptoms, No sore throat, No trouble swallowing Respiratory: + wheezing, No cough, No dyspnea on exertion, No dyspnea at rest Cardiovascular: No chest pain, No palpitations Abdomen: + pain (minimal at incision sites), + constipation (chronic), No nausea, No vomiting, No diarrhea Musculoskeletal: No swelling, No calf pain Genitourinary - Female: No dysuria Hematologic / Lymphatic: No abnormal bleeding/bruising, No clotting problems Integumentary: No rash Physical Exam Date Time Temp Pulse Resp B/P (MAP) Pulse Ox O2 Delivery O2 Flow Rate FiO2 01/05/17 19:32 36.9 56 18 117/79 (92) 99 Nasal Cannula 2.0 01/05/17 19:02 36.6 53 18 112/70 (84) 99 Nasal Cannula 2.0 01/05/17 18:52 Room Air 01/05/17 17:55 36.5 55 14 110/66 100 Nasal Cannula 3 Oxymask 01/05/17 17:45 54 14 116/55 100 Oxymask 4 01/05/17 17:35 62 14 118/54 100 Oxymask 7 01/05/17 17:26 36.4 76 14 115/74 100 Oxymask 7 01/05/17 15:54 70 16 93 Room Air 01/05/17 15:40 36.6 71 16 118/71 (87) 95 Room Air 01/05/17 15:20 65 16 105/61 95 Room Air 01/05/17 13:56 84 20 102/62 95 Room Air 01/05/17 13:24 75 01/05/17 13:10 79 18 106/66 93 Room Air 01/05/17 11:17 37.2 97 16 118/73 94 Room Air General Appearance: WD/WN, no apparent distress Head: normocephalic, atraumatic Eyes: sclerae normal ENT: hearing grossly normal, pharynx normal Neck: supple, no JVD, trachea midline Respiratory/Chest: no respiratory distress, no accessory muscle use, + wheezing (intermittent exp. wheeze mostly in L mid-upper lung degroot) Cardiovascular: regular rate, rhythm, no gallop, no murmur Abdomen/GI: normal bowel sounds, non tender, soft, + pertinent finding (small surgical incisions well-approximated without bleeding or erythema) Extremities/Musculoskelatal: no calf tenderness, no pedal edema Neurologic/Psych: alert, oriented x 3 Skin: normal color, warm/dry Laboratory Results Last 24 Hours Test 01/05/17 11:48 01/05/17 13:00 01/05/17 13:08 White Blood Count 10.85 K/uL Red Blood Count 4.88 M/uL Hemoglobin 14.1 g/dL Hematocrit 42.9 % Mean Corpuscular Volume 87.9 fL Mean Corpuscular Hemoglobin 28.9 pg Mean Corpuscular Hemoglobin Concent 32.9 g/dl Platelet Count 289 K/uL Mean Platelet Volume 10.4 fL Neutrophils (%) (Auto) 78.0 % Lymphocytes (%) (Auto) 14.9 % Monocytes (%) (Auto) 4.6 % Eosinophils (%) (Auto) 1.6 % Basophils (%) (Auto) 0.4 % Neutrophils # (Auto) 8.47 K/uL Lymphocytes # (Auto) 1.62 K/uL Monocytes # (Auto) 0.50 K/uL Eosinophils # (Auto) 0.17 K/uL Basophils # (Auto) 0.04 K/uL RDW Standard Deviation 45.4 fL RDW Coefficient of Variation 14.1 % Immature Granulocyte % (Auto) 0.5 % Immature Granulocyte # (Auto) 0.05 K/uL Sodium Level 138 mmol/L Potassium Level 3.9 mmol/L Chloride Level 108 mmol/L Carbon Dioxide Level 28 mmol/L Anion Gap 2.0 mmol/L Blood Urea Nitrogen 11 mg/dl Creatinine 0.79 mg/dl Est Creatinine Clear Calc Drug Dose 77.7 ml/min Estimated GFR () 104.8 Estimated GFR (Non- 90.4 BUN/Creatinine Ratio 13.6 Random Glucose 119 mg/dl Calcium Level 9.1 mg/dl Total Bilirubin 0.5 mg/dl Direct Bilirubin 0.1 mg/dl Aspartate Amino Transf (AST/SGOT) 11 U/L Alanine Aminotransferase (ALT/SGPT) 25 U/L Alkaline Phosphatase 43 U/L Total Protein 7.1 gm/dl Albumin 3.9 gm/dl Lipase 147 U/L Urine Test NEG Urine Color DK YELLOW Urine Appearance TURBID Urine pH 7.5 Urine Specific [place] 1.018 Urine Protein NEG Urine Glucose (UA) NEG Urine Ketones NEG Urine Occult Blood NEG Urine Nitrite NEG Urine Bilirubin NEG Urine Urobilinogen NEG Urine Leukocyte Esterase SMALL Urine WBC (Auto) 10-30 /hpf Urine RBC (Auto) 5-10 /hpf Urine Hyaline Casts (Auto) 10-30 /lpf Urine Epithelial Cells (Auto) >30 /lpf Urine Bacteria (Auto) 1+ Urine Crystals AMORPHOUS SEDIMENT Urine Pathogenic Casts 0-3 GRANULAR CASTS /lpf Assessment & Plan Ms. Erazo is a 46 y/o [facility] female with PMHx of Severe Persistent Uncontrolled Asthma and GERD who is S/P Lap Lexie on 01/05 Cholelithiasis/Chronic Cholecystitis S/P Lap Lexie on 01/05: - Pain management, IVF, and DVT Prophylaxis per primary Severe Persistent Uncontrolled Asthma: IMPROVING - Last severe exacerbation was in June 2016 here and initial admission to ICU - no intubation required - IgE levels improving and less exacerbations; never required intubation for flairs - Follows with Dr. Brown and is somewhat non-compliant with therapy however has tried numerous regimens with little effect - Currently utilized Duonebs QID - permission from community to run generator for air conditioning and neb machine - Does have Breo that she does not always use as she feels this does not help - Steroid dependent and currently reporting Prednisone 15 mg AM and 15 mg PM - countless attempts at weaning but not tolerated by patient GERD: - Patient reporting she has significant reflux and has tried Protonix, Zantac, and Pepcid as monotherapies - Can trial dual therapy of Protonix and Ranitidine x 14 days - Rx printed - May even benefit from Carafate Disposition: - D/C per primary team - as long as patient is off O2 with good saturations and no other acute events she would be appropriate for D/C. Patient is currently moving good air (for her) with mild wheeze does chronically wheeze. Resident Physician Supervision Note: Pt evaluated independently. I discussed the case with the PA - Hattie Clay and agree with the findings and plan as documented in the note. Any exceptions or clarifications are listed here: 46 y/o F with severe persistent asthma - post elective lexie OE Pt somnolent at time of evaluation S1,2 R Mild end exp wheezing noted NT, ND, BS+ No CCE P: This pt has environmental exposure which is persistent due to her lifestyle and thought to be a constant factor in her asthma exacerbations. She tends to self- adjust her steroids and is on a relatively high dose of 30mg daily at present. This places her at risk for poor healing - adrenal insufficiency would also be a concern although she did not reportedly become hypotensive during the procedure. The surgery itself was uncomplicated to the best of our knowledge. She is not currently exhibiting an exacerbation despite likely wheezing at baseline. We will keep her on her current regimen and she can f/u with pulmonology. There are less short-term concerns at present than concerns with her long-term prognosis considering her advanced disease at an early age. The medical service will follow her resp status pending DC. It is noted that per the PA she has had persistent GERD despite compliance with an H2 eddy - I agree with a course of dual suppression therapy as the resultant irritation may too be exacerbating her asthma. Documented By: Mayank Bennett
[2017-01-05] MEDS ORDERED: IV FLUIDS COMPLETED PRN (20:15)
[2017-01-05] MEDS: CEFOXITIN IV 2,000 MG in SYRINGE 11 ML IV SCH (20:52)
[2017-01-05] MEDS: ALBUT/IPRATROP 3MG/0.5MG NEB 3 ML VIAL INH SCH (21:23)
--- NOTE | 2017-01-05 22:00 | EMERGENCY ROOM VISIT NOTE ---
ED Visit Note First contact with patient: 11:59 Chief Complaint: Abdominal pain. History of Present Illness: Ms. Erazo is a 46 year-old white female ambulates into the ED complaining of right upper quadrant abdominal pain. Historically patient reports she has GERD and gallbladder disease and I received a report from 611 MRI/CT of a gallbladder ultrasound showing a single gallstone without evidence of cholelithiasis and multiple gallbladder polyps. Patient does report she has an appointment with Dr. Whiting for a preop evaluation for cholecystectomy tomorrow. Patient reports she has been having ongoing right upper quadrant pain for several months which has increased in the last 2 weeks. She did contact her family physician who encouraged her to come to the emergency department today because Dr. Whiting was in call and he felt that she may be able to have surgery today to remove her gallbladder. She goes on to report that she feels like the pain is gotten slightly worse over the last couple of days. She describes her pain as sharp in the right upper quadrant. Radiating into the thoracic back. She rates her discomfort 6/ 10. She reports her pain worsens when she eats. She has not identified any alleviating factors related to the pain. She is not taking medications for pain prior to arrival at the hospital. She does report she also has asthma and when her pain exacerbates she starts feeling short of breath; she is currently on steroids for her asthma. Patient denies fevers, chills, sweats, skin eruptions, skin color changes, upper respiratory tract symptoms, chest pain, nausea, vomiting, diarrhea, constipation, rectal bleeding, black/tarry stools, urinary symptoms, hematuria, vaginal bleeding, vaginal discharge. Review of Systems: As noted above in history of present illness. All body systems were reviewed and found to be negative as noted above. Past Medical History: As previously noted, status post tonsillectomy. Current Medications: Prednisone, DuoNeb. Allergies to Medications: A products, lactose, mepolizumab, mouse protein, sorbitan. Social History: Patient is not employed; she lives with her family and feels safe in her home environment; she denies tobacco and alcohol use. Physical Examination: Vital Signs: Date Time Temp Pulse Resp B/P (MAP) Pulse Ox O2 Delivery O2 Flow Rate FiO2 01/05/17 15:54 70 16 93 Room Air 11/30/17 15:40 36.6 71 16 118/71 (87) 95 Room Air 01/05/17 15:20 65 16 105/61 95 Room Air 01/05/17 13:56 84 20 102/62 95 Room Air 01/05/17 13:24 75 01/05/17 13:10 79 18 106/66 93 Room Air 01/05/17 11:17 37.2 97 16 118/73 94 Room Air GENERAL: 46-year-old female in mild to moderate distress due to pain, nontoxic- appearing, afebrile and hemodynamically stable. NEUROLOGICAL: Awake, alert and oriented to person, place and time. Answering questions appropriately and following commands. Normal gait. Good hand eye coordination. SKIN: Warm, dry and pink. No soft tissue eruptions or trauma noted. HEENT: Atraumatic and normocephalic. PERRLA. Sclera white and conjunctiva pink. Oral cavity moist and pink. Pharynx is nonerythematous or edematous. Speech normal. No lymphadenopathy. Trachea midline. No jugular venous distention. BACK: No tenderness over the bony spine. No CVA tenderness. THORAX: Lungs sounds are clear to auscultation and equal bilaterally with symmetrical chest wall. No wheezing, rales or rhonchi. No crepitus, tenderness , subcutaneous air or deformities noted. HEART: Regular rate and rhythm. No gallops, rubs or murmurs are appreciated. ABDOMEN: Flat and soft with mild tenderness in the right upper quadrant. Positive bowel sounds in all quadrants. No guarding, rigidity or organomegaly. EXTREMITIES: Moves all extremities well on command and with purpose. All distal neurovascular statuses are intact and equal bilaterally. ED Course: Patient is assessed as noted above. Laboratory Testing: Test 01/05/17 11:48 01/05/17 13:00 01/05/17 13:08 Range/Units White Blood Count 10.85 4.8-10.8 K/uL Red Blood Count 4.88 4.2-5.4 M/uL Hemoglobin 14.1 12.0-16.0 g/dL Hematocrit 42.9 37-47 % Mean Corpuscular Volume 87.9 80-100 fL Mean Corpuscular Hemoglobin 28.9 25-34 pg Mean Corpuscular Hemoglobin Concent 32.9 32-36 g/dl Platelet Count 289 130-400 K/uL Mean Platelet Volume 10.4 7.4-10.4 fL Neutrophils (%) (Auto) 78.0 % Lymphocytes (%) (Auto) 14.9 % Monocytes (%) (Auto) 4.6 % Eosinophils (%) (Auto) 1.6 % Basophils (%) (Auto) 0.4 % Neutrophils # (Auto) 8.47 1.4-6.5 K/uL Lymphocytes # (Auto) 1.62 1.2-3.4 K/uL Monocytes # (Auto) 0.50 0.11-0.59 K/uL Eosinophils # (Auto) 0.17 0-0.5 K/uL Basophils # (Auto) 0.04 0-0.2 K/uL RDW Standard Deviation 45.4 36.4-46.3 fL RDW Coefficient of Variation 14.1 11.5-14.5 % Immature Granulocyte % (Auto) 0.5 % Immature Granulocyte # (Auto) 0.05 0.00-0.02 K/uL Sodium Level 138 136-145 mmol/L Potassium Level 3.9 3.5-5.1 mmol/L Chloride Level 108 98-107 mmol/L Carbon Dioxide Level 28 21-32 mmol/L Anion Gap 2.0 3-11 mmol/L Blood Urea Nitrogen 11 7-18 mg/dl Creatinine 0.79 0.60-1.20 mg/dl Est Creatinine Clear Calc Drug Dose 77.7 ml/min Estimated GFR () 104.8 Estimated GFR (Non- 90.4 BUN/Creatinine Ratio 13.6 10-20 Random Glucose 119 70-99 mg/dl Calcium Level 9.1 8.5-10.1 mg/dl Total Bilirubin 0.5 0.2-1 mg/dl Direct Bilirubin 0.1 0-0.2 mg/dl Aspartate Amino Transf (AST/SGOT) 11 15-37 U/L Alanine Aminotransferase (ALT/SGPT) 25 12-78 U/L Alkaline Phosphatase 43 45-117 U/L Total Protein 7.1 6.4-8.2 gm/dl Albumin 3.9 3.4-5.0 gm/dl Lipase 147 73-393 U/L Urine Test NEG NEG Urine Color DK YELLOW Urine Appearance TURBID CLEAR Urine pH 7.5 4.5-7.5 Urine Specific [place] 1.018 1.000-1.030 Urine Protein NEG NEG Urine Glucose (UA) NEG NEG Urine Ketones NEG NEG Urine Occult Blood NEG NEG Urine Nitrite NEG NEG Urine Bilirubin NEG NEG Urine Urobilinogen NEG NEG Urine Leukocyte Esterase SMALL NEG Urine WBC (Auto) 10-30 0-5 /hpf Urine RBC (Auto) 5-10 0-4 /hpf Urine Hyaline Casts (Auto) 10-30 0-5 /lpf Urine Epithelial Cells (Auto) >30 0-5 /lpf Urine Bacteria (Auto) 1+ NEG Urine Crystals AMORPHOUS SEDIMENT NONE PRSENT Urine Pathogenic Casts 0-3 GRANULAR CASTS 0 /lpf Chest X-Ray: Was read by myself and the radiologist showing no acute infiltrates , effusions or pneumothorax. Normal heart silhouette and bony anatomy. Radiologist noted a healing right sided rib fracture and pectus deformity. There is also noted that patient has a ground glass focus not seen on this x- ray but on previous CAT scan. Patient was hydrated with normal saline; she was offered pain medication and refused. Patient was reassessed multiple times during her stay in the emergency department. Patient's case was reviewed with Dr. Rollins; we agreed on diagnostic approach, treatment, disposition and plan. I was not a discharged the patient from the hospital to keep her upcoming appointment with general surgery but Dr. Whiting did come down to the emergency department evaluated the patient and felt she needed to have an cystectomy. Her care was transferred to him; please see his notes and orders for final disposition and plan. Clinical Impression: Cholelithiasis. Right upper quadrant abdominal pain. Disposition and Plan: Please see Dr. Whiting's notes and orders for final disposition and plan.
[2017-01-05] MEDS: LACTATED RINGER'S 1000ML 1,000 ML IV SCH (22:25)
[2017-01-06] MEDS: CEFOXITIN IV 2,000 MG in SYRINGE 11 ML IV SCH ×2 (02:57→08:45)
[2017-01-06 04:00] VITALS: BP 112/67; PULSE 78; TEMP 36.8; O2SAT 94
[2017-01-06] MEDS: LACTATED RINGER'S 1000ML 1,000 ML IV SCH (05:46)
[2017-01-06] MEDS ORDERED: CEFOXITIN SOD 2 GM VIAL IV ONE (06:00)
[2017-01-06 06:20] LABS: BASO % 0.1 %; BASO ABS # 0.01 K/uL (0-0.2); COMPLETE YES; EOS % 0.2 %; HEMATOCRIT 41.1 % (37-47); IG% 0.4 %; LYMPH % 15.2 %; LYMPH ABS # 2.03 K/uL (1.2-3.4); MEAN CELL VOLUME 90.5 fL (80-100); MEAN CORPUSCULAR HEMOGLOBIN 29.3 pg (25-34); MEAN CORPUSCULAR HGB CONC 32.4 g/dl (32-36); MONO % 5.4 %; NEUT % 78.7 %; PLATELET COUNT 238 K/uL (130-400); RED BLOOD COUNT 4.54 M/uL (4.2-5.4); WHITE BLOOD COUNT 13.39 K/uL (4.8-10.8)
[2017-01-06 06:49] LABS: BUN/CREATININE RATIO 8.6 (10-20); CALCIUM 8.6 mg/dl (8.5-10.1); CREATININE 0.83 mg/dl (0.60-1.20); POTASSIUM 4.1 mmol/L (3.5-5.1)
--- NOTE | 2017-01-06 06:53 | SURGERY PROGRESS NOTE ---
DATE: 01/06/2017 Alicia is first postoperative day status post laparoscopic cholecystectomy, intraoperative cholangiogram. She feels great. She has minimal discomfort. She was able to tolerate diet last night with minimal reflux. 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 At this point, the patient's abdomen is completely benign. The trocar sites are healing well. I recommended to her that she can be discharged today to follow up in our office in approximately 1 week and will obtain a CAT scan of the abdomen as an outpatient. Instructions were given regarding wound care, diet, activity and meds. Her last vitals showed a temperature of 36.8, pulse 78, respirations 16, blood pressure 112/67, O2 sats 94 on room air. She is having no respiratory problems.
[2017-01-06 07:14] VITALS: PULSE 78; O2SAT 95
[2017-01-06] MEDS: ALBUT/IPRATROP 3MG/0.5MG NEB 3 ML VIAL INH SCH (07:14)
[2017-01-06] MEDS ORDERED: OXYC-57 PO (07:19)
--- NOTE | 2017-01-06 07:25 | Discharge Instructions ---
Discharge Instructions Date of Service Jan 06, 2017. Admission Reason for Admission: Acute Cholecystitis Discharge Discharge Diagnosis / Problem: Acute Cholecystitis Discharge Goals Goal(s): Decrease discomfort, Improve function Activity Recommendations Activity Limitations: as noted below Lifting Limitations: no more than 10 pounds, until after follow-up appointment Exercise/Sports Limitations: until after follow-up appointment Shower/Bathe: tomorrow (Please do not submerge your incision until after follow -up appointment) Driving or Machine Use: resume 3 days after discharge (Do not drive while using narcotic pain medication) . Instructions / Follow-Up Instructions / Follow-Up You have been prescribed Percocet for pain. Please take as prescribed as needed for pain. You may alternate this with ibuprofen for better pain relief. Please follow-up with Dr. Whiting in the office in 1 week. Please contact our office at to schedule an appointment if you have not done so already. Please contact us with any questions or concerns at the number listed above. [facility]. [address] [place] [address] Current Hospital Diet Patient's current hospital diet: Clear Liquid Diet Discharge Diet Recommended Diet: Regular Diet Procedures Procedures Performed: Laparoscopic Cholecystectomy with Cholangeogram Pending Studies Studies pending at discharge: yes List of pending studies: Pathology Laboratory Results Last 24 Hours Test 01/05/17 11:48 01/05/17 13:00 01/05/17 13:08 01/06/17 05:54 White Blood Count 10.85 K/uL 13.39 K/uL Red Blood Count 4.88 M/uL 4.54 M/uL Hemoglobin 14.1 g/dL 13.3 g/dL Hematocrit 42.9 % 41.1 % Mean Corpuscular Volume 87.9 fL 90.5 fL Mean Corpuscular Hemoglobin 28.9 pg 29.3 pg Mean Corpuscular Hemoglobin Concent 32.9 g/dl 32.4 g/dl Platelet Count 289 K/uL 238 K/uL Mean Platelet Volume 10.4 fL 10.0 fL Neutrophils (%) (Auto) 78.0 % 78.7 % Lymphocytes (%) (Auto) 14.9 % 15.2 % Monocytes (%) (Auto) 4.6 % 5.4 % Eosinophils (%) (Auto) 1.6 % 0.2 % Basophils (%) (Auto) 0.4 % 0.1 % Neutrophils # (Auto) 8.47 K/uL 10.55 K/uL Lymphocytes # (Auto) 1.62 K/uL 2.03 K/uL Monocytes # (Auto) 0.50 K/uL 0.72 K/uL Eosinophils # (Auto) 0.17 K/uL 0.03 K/uL Basophils # (Auto) 0.04 K/uL 0.01 K/uL RDW Standard Deviation 45.4 fL 46.9 fL RDW Coefficient of Variation 14.1 % 14.2 % Immature Granulocyte % (Auto) 0.5 % 0.4 % Immature Granulocyte # (Auto) 0.05 K/uL 0.05 K/uL Sodium Level 138 mmol/L 137 mmol/L Potassium Level 3.9 mmol/L 4.1 mmol/L Chloride Level 108 mmol/L 105 mmol/L Carbon Dioxide Level 28 mmol/L 27 mmol/L Anion Gap 2.0 mmol/L 5.0 mmol/L Blood Urea Nitrogen 11 mg/dl 7 mg/dl Creatinine 0.79 mg/dl 0.83 mg/dl Est Creatinine Clear Calc Drug Dose 77.7 ml/min 74.0 ml/min Estimated GFR () 104.8 98.7 Estimated GFR (Non- 90.4 85.2 BUN/Creatinine Ratio 13.6 8.6 Random Glucose 119 mg/dl 87 mg/dl Calcium Level 9.1 mg/dl 8.6 mg/dl Total Bilirubin 0.5 mg/dl Direct Bilirubin 0.1 mg/dl Aspartate Amino Transf (AST/SGOT) 11 U/L Alanine Aminotransferase (ALT/SGPT) 25 U/L Alkaline Phosphatase 43 U/L Total Protein 7.1 gm/dl Albumin 3.9 gm/dl Lipase 147 U/L Urine Test NEG Urine Color DK YELLOW Urine Appearance TURBID Urine pH 7.5 Urine Specific [place] 1.018 Urine Protein NEG Urine Glucose (UA) NEG Urine Ketones NEG Urine Occult Blood NEG Urine Nitrite NEG Urine Bilirubin NEG Urine Urobilinogen NEG Urine Leukocyte Esterase SMALL Urine WBC (Auto) 10-30 /hpf Urine RBC (Auto) 5-10 /hpf Urine Hyaline Casts (Auto) 10-30 /lpf Urine Epithelial Cells (Auto) >30 /lpf Urine Bacteria (Auto) 1+ Urine Crystals AMORPHOUS SEDIMENT Urine Pathogenic Casts 0-3 GRANULAR CASTS /lpf Medical Emergencies . Who to Call and When: Medical Emergencies: If at any time you feel your situation is an emergency, please call 911 immediately. . Non-Emergent Contact Non-Emergency issues call your: Primary Care Provider, Surgeon Call Non-Emergent contact if: you have a fever, temperature is above 101.5, your pain is not controlled, your pain is worsening, wound has increased drainage, wound has increased redness . "Provider Documentation" section prepared by Anshul Amanda. . VTE Core Measure Inpt VTE Proph given/why not?: SCD's [place] Drug Monitoring Program Search Results: patient reviewed within database, no issues identified
[2017-01-06 07:51] VITALS: BP 118/72; PULSE 76; TEMP 36.9; O2SAT 99
[2017-01-06 08:02] VITALS: O2SAT 99
[2017-01-06 08:19] VITALS: BP 118/72; PULSE 76; TEMP 36.9; O2SAT 99
[2017-01-06] MEDS ORDERED: RANITIDINE HCL 150 MG TAB PO SCH (09:00)
[2017-01-06] MEDS ORDERED: PANTOprazole SOD 40 MG TAB PO SCH (09:00)
--- NOTE | 2017-01-06 09:18 | DISCHARGE SUMMARY ---
PRIMARY DISCHARGE DIAGNOSIS: 1. Acute cholecystitis. 2. Possible intestinal malrotation. SECONDARY DISCHARGE DIAGNOSES: Severe persistent asthma. CONSULTATIONS: [facility] [address] hospitalist to assist in routine postoperative management. PROCEDURE PERFORMED: Laparoscopic cholecystectomy with intraoperative cholangiogram. HOSPITAL COURSE: The patient is a 46-year-old female referred to the Emergency Department by her PCP for right upper quadrant pain and outpatient ultrasound with gallstones and multiple gallbladder polyps. Her white count was 10,000 with a left shift. She has been unable to eat recently. She was taken to the operating room that afternoon for laparoscopic cholecystectomy with intraoperative cholangiogram. There were no filling defects on the cholangiogram; however, the duodenum appeared to be in the left upper quadrant, raising the question of malrotation. She was transferred to the surgical floor for overnight observation. We asked the medical service to see her given her history of severe asthma. Her respiratory status remained stable. On postoperative day 1, she was able to tolerate an advancing diet and oral analgesics. Her abdomen was soft. Incisions were dry. She was stable for discharge. DISCHARGE INSTRUCTIONS: Discharge home. Follow up with Dr. Whiting in 1 week. Most likely will order an outpatient CT to evaluate possible malrotation. DISCHARGE MEDICATIONS: Percocet 1-2 tablets every 4 hours as needed, Protonix 40 mg daily, Zantac 150 mg daily. Continue on her home prednisone 50 mg p.o. b.i.d. and DuoNebs 1 treatment q.i.d. MTDD
--- NOTE | 2017-01-06 19:59 | Progress Note ---
Subjective Date of Service: Jan 06, 2017. Subjective Pt evaluation today including: conversation w/ patient, physical exam, chart review, lab review Pain: minimal incisional pain PO Intake: normal; tolerating diet Voiding: no voiding problems patient denies significant complaints feels good some wheezing but no cough or dyspnea +flatus no vomiting or nausea Problem List Medical Problems: (1) Acute asthma exacerbation Status: Acute (2) Asthma with exacerbation Status: Acute (3) Asthma with exacerbation Status: Acute Review of Systems Constitutional: No fever Respiratory: No shortness of breath, No dyspnea on exertion Cardiac: No chest pain Abdomen: + see HPI, No vomiting Objective Vital Signs Date Time Temp Pulse Resp B/P (MAP) Pulse Ox O2 Delivery O2 Flow Rate FiO2 01/06/17 08:19 36.9 76 20 99 Room Air 01/06/17 08:02 99 Room Air 01/06/17 07:51 36.9 76 20 118/72 (87) 99 Room Air 01/06/17 07:30 Room Air 01/06/17 07:14 78 16 95 Room Air 01/06/17 04:00 36.8 78 16 112/67 (82) 94 Room Air 01/05/17 23:20 Room Air 01/05/17 22:50 36.8 69 16 105/59 (74) 94 Room Air 01/05/17 21:50 36.8 93 18 105/66 (79) 93 Room Air 01/05/17 21:24 76 16 93 Room Air 01/05/17 20:42 36.9 94 18 110/72 (85) 98 Nasal Cannula 2.0 Physical Exam General Appearance: no apparent distress ENT: pharynx normal Neck: no JVD Respiratory/Chest: no respiratory distress, no accessory muscle use, + wheezing (end-exp, mild, b/l ) Cardiovascular: regular rate, rhythm, no gallop, no murmur Abdomen: normal bowel sounds, soft, no organomegaly, + tenderness (scant - incisions only) Extremities: no pedal edema Neurologic/Psychiatric: alert, oriented x 3 Laboratory Results Last 24 Hours Test 01/06/17 05:54 White Blood Count 13.39 K/uL Red Blood Count 4.54 M/uL Hemoglobin 13.3 g/dL Hematocrit 41.1 % Mean Corpuscular Volume 90.5 fL Mean Corpuscular Hemoglobin 29.3 pg Mean Corpuscular Hemoglobin Concent 32.4 g/dl Platelet Count 238 K/uL Mean Platelet Volume 10.0 fL Neutrophils (%) (Auto) 78.7 % Lymphocytes (%) (Auto) 15.2 % Monocytes (%) (Auto) 5.4 % Eosinophils (%) (Auto) 0.2 % Basophils (%) (Auto) 0.1 % Neutrophils # (Auto) 10.55 K/uL Lymphocytes # (Auto) 2.03 K/uL Monocytes # (Auto) 0.72 K/uL Eosinophils # (Auto) 0.03 K/uL Basophils # (Auto) 0.01 K/uL RDW Standard Deviation 46.9 fL RDW Coefficient of Variation 14.2 % Immature Granulocyte % (Auto) 0.4 % Immature Granulocyte # (Auto) 0.05 K/uL Sodium Level 137 mmol/L Potassium Level 4.1 mmol/L Chloride Level 105 mmol/L Carbon Dioxide Level 27 mmol/L Anion Gap 5.0 mmol/L Blood Urea Nitrogen 7 mg/dl Creatinine 0.83 mg/dl Est Creatinine Clear Calc Drug Dose 74.0 ml/min Estimated GFR () 98.7 Estimated GFR (Non- 85.2 BUN/Creatinine Ratio 8.6 Random Glucose 87 mg/dl Calcium Level 8.6 mg/dl Assessment and Plan 46yo female - 1. POD #1, s/p lap donna - doing well from surgical standpoint. Recommended low fat diet at d/c to avoid diarrhea. 2. severe, persistent asthma - stable at this time. Encouraged med compliance and f/u with pulmonary. 3. GERD - 2 week prescriptions given for PPI + H2 eddy. Recommended compliance with these meds to really try and see if they will help. f/u with PCP for this. Ok from medical standpoint to d/c home. Thank you for this consult.
== END 2017-01-06 10:57 | disposition home or self-care (01) ==
LOC: C.EDB 11:14 → C.MSW 17:20 → ENRESERV 17:39
PROVIDERS: ADMIT Surgery; ATTEND Surgery
DX: K80.10 Calculus of gallbladder with chronic cholecystitis without obstruction (principal); J45.909 Unspecified asthma, uncomplicated; K21.9 Gastro-esophageal reflux disease without esophagitis; Z90.89 Acquired absence of other organs; Z91.012 Allergy to eggs; Z83.3 Family history of diabetes mellitus; Z82.49 Family history of ischemic heart disease and other diseases of the circulatory system

== ENCOUNTER 2021-08-29 13:29 | Inpatient (IN) ==
--- NOTE | 2021-08-29 14:45 | Emergency Department Note ---
Impression & Plan Pneumonia, RANDHAWA (dyspnea on exertion) ED Provider Note NAME: LEXI HOLBROOK AGE: 51 SEX: F : 1970 ARRIVES VIA: Walk-In INFORMANT: Patient, ED PROVIDER(S): Randolph Suero DO CHIEF COMPLAINT: Difficulty breathing HPI: The patient is a 51-year-old female who presented to the emergency department for an evaluation of difficulty breathing. The patient has been having ongoing breathing issues over the course last few weeks. She recently stopped taking steroids. She was taking steroids previously for asthma. She states that she was at [facility] for similar complaints. At that time she did have a CT of the chest. According to her family member she was not found to have any signs of pulmonary embolism. She was called after being discharged and was noted to have pneumonia. She was started on doxycycline. Apparently the patient has been compliant with this medication. She states it does give her an upset stomach. She denies having any chest pain. She does complain of upper back pain especially on the right side. She is had a cough. She denies having any lower extremity swelling or pain. She does state that symptoms are worsened with exertion. The patient reports a low-grade fever toda y prior to arrival. ROS: See above HPI for pertinent positives & negatives. A total of 10 systems reviewed and were otherwise negative. PAST MEDICAL HISTORY: See Below PAST SURGICAL HISTORY: See Below FAMILY HISTORY: See Below SOCIAL HISTORY: See Below HOME MEDICATIONS: See Below ALLERGIES: See Below VITALS: See Below PHYSICAL EXAMINATION: GENERAL: Patient is awake alert in no acute distress patient is resting comfortably and showing no signs of anxiety EYES: The conjunctivae are clear. The pupils are round and reactive. EARS, NOSE, MOUTH AND THROAT: The nose is without any evidence of any deformity. NECK: The neck is nontender and supple. RESPIRATORY: Diminished breath sounds are noted in the right lung field. There were rales noted throughout. There was mild conversational dyspnea. CARDIOVASCULAR: Tachycardic rate with regular rhythm was noted. There is no definite murmur. GASTROINTESTINAL: The abdomen is soft. Abdomen is nontender. PELVIS: The Pelvis is stable. No tenderness to palpation is noted. BACK: No midline tenderness or or step-off noted range of motion in flexion extension as well as rotation no signs of muscle spasm noted MUSCULOSKELETAL/EXTREMITIES: There is no evidence of gross deformity full range of motion is noted in the hips and shoulders. SKIN: Skin was warm and dry. There is no significant pedal edema. NEUROLOGIC: Patient is awake alert and oriented x3. MEDICAL DECISION MAKING: The patient is a 51 year old female who presented to the emergency department for an evaluation of shortness of breath. The patient is Presented initially to [facility]. She had a complete work up which included laboratory and radiographic studies. I did review the patient's records from [facility]. The patient had CT angiography the chest. They did not reveal signs of venous thromboembolic disease. She did have pneumonia and we started on doxycycline. The patient presented to the emergency department today because of ongoing and worsening symptoms. The patient was treated with IV in antibiotics as well as bronchodilator therapy. She was treated with IV fluids as well. Her tachycardia improved but she still had very significant discount exertion. For this reason I discuss your case with the on-call [facility] hospitalist. They've agreed to evaluate the patient emergency department for the management. Triage Nursing notes reviewed. Prior medical records reviewed Vital Signs: reviewed and remarkable for tachycardia and borderline hypotension. Differential diagnosis: Reactive airway disease, pneumonia, pneumothorax, COPD, CHF, infections, car diac ischemia, pulmonary embolism, musculoskeletal, gastrointestinal, as well as other pathologies. ER treatment provided: See below Diagnostics interpreted by me: ECG: EKG was obtained in the emergency department. My interpretation is sinus tachycardia 110 bpm. There is no ectopy. Nonspecific ST segment abnormalities were noted. This was compared to a tracing from January 05, 2017. There was an increase in the heart rate otherwise no specific changes were noted. Cardiac Monitoring: An order was placed for continuous cardiac monitoring. The monitor shows a rate of 105 bpm with sinus tachycardia. Laboratory studies: As stated above and show below. Imaging studies: See below Consultation(s): I discussed this case with Dr Kuhn who was tombstone carver for the [facility] Hospitalist group. ED COURSE: Procedures: none Past Med/Surg History Medical History Asthma GERD (gastroesophageal reflux disease) Hx of steroid therapy SPOUSE STATES SHE HAS BEEN ON FOR 7 YEARS Surgical History History of repair of hiatal hernia History of tonsillectomy Hx laparoscopic cholecystectomy Hx of esophagogastroduodenoscopy Social History Smoking Status: Never smoker Second Hand Exposure: No; Do You Dip or Chew Tobacco: No; Tobacco Cessation Education Requested by Patient: No Hx Alcohol Use: No Hx Substance Use: No Preferred Language: Pakistani Communication Ability: Effective Wood Gouger Required: No Beliefs That Will Affect Care: Anglican Anglican Beliefs: Roman Catholic , Spiritual Spiritual Healthcare Practices: Roman Catholic and Cultural Cultural Beliefs: Roman Catholic Current Living Situation: Spouse and Family Other Information That Helps Us Care for You: No Feels Safe at Home: Yes Safety Concerns: Feels Safe At This Time Assistive Devices: None Allergies Allergies Allergy/AdvReac Type Severity Reaction Status Date / Time Egg Derived Allergy Severe Allergy Verified 08/29/21 16:51 testing with high reactivity in 2012 mepolizumab Allergy Severe Hives / Verified 08/29/21 16:51 paroxysmal bronchospasm lactose Allergy Mild Allergy Verified 08/29/21 16:51 testing in 2012 mouse protein Allergy Unknown RESPIRATORY Verified 08/29/21 16:51 DISTRESS sorbitan esters Allergy Unknown RESPIRATORY Verified 08/29/21 16:51 DISTRESS Home Meds Home Medications Medication Instructions Recorded Confirmed cholecalciferol (vitamin D3) 25 100 mcg PO DAILY 07/23/19 08/29/21 mcg (1,000 unit) capsule cyclobenzaprine 5 mg tablet 5 mg PO TID PRN Muscle Spasm 08/13/21 08/29/21 calcium carbonate 600 mg-vitamin 1 tab PO DAILY 08/29/21 08/29/21 D3 5 mcg (200 unit) tablet (Calcium 600 + D(3)) doxycycline hyclate 100 mg capsule 100 mg PO BID 08/29/21 08/29/21 ipratropium 0.5 mg-albuterol 3 mg 3 ml inhalation QID PRN Shortness 08/29/21 08/29/21 (2.5 mg base)/3 mL nebulization Of Breath Or Wheezing soln lidocaine 5 % topical patch 1 patch topical DAILY 08/29/21 08/29/21 magnesium oxide 500 mg capsule 500 mg PO TID 08/29/21 08/29/21 tizanidine 4 mg tablet 4 mg PO BID PRN Muscle Spasm 08/29/21 08/29/21 Previous Rx's Medication Instructions Recorded albuterol sulfate 90 mcg/actuation 2 puff inhalation Q6H PRN SOB #18 05/29/20 aerosol inhaler grams epinephrine 0.3 mg/0.3 mL 0.3 mg (0.3 mL) IM Q4H PRN 04/27/21 injection, auto-injector anaphylaxis #2 ea fluticasone 500 mcg-salmeterol 50 1 inh inhalation BID #60 ea 07/02/21 mcg/dose blistr powdr for inhalation (Wixela Inhub) dupilumab 300 mg/2 mL subcutaneous 300 mg (2 mL) subcut .COMPLEX #12 07/19/21 syringe (Dupixent) mL prednisone 1 mg tablet See Rx Instructions .Route 08/13/21 .COMPLEX #70 tabs Results & Data (ED) Vital Signs Vital Signs - 24 hr 08/29/21 13:37 08/29/21 13:30 08/29/21 14:58 Temperature 36.7 C Temperature Source Temporal Artery Scan Pulse Rate 121 H Pulse Rate from SpO2 Sensor Respiratory Rate 20 Respiratory Effort / Characteristics Short of Breath Respiratory Depth Normal Respiratory Pattern Regular Blood Pressure 104/63 Blood Pressure Mean 76 Blood Pressure Position Sitting Pulse Oximetry 95 93 93 Oxygen Delivery Method Room Air Room Air Room Air Sepsis Recent Fever Within 48 Hours No Sepsis New/Unexplained Change in Mental Status No Sepsis Action Taken by Nursing No Action Required 08/29/21 15:00 08/29/21 15:30 08/29/21 16:00 Temperature Temperature Source Pulse Rate 97 H 102 H 91 H Pulse Rate from SpO2 Sensor 97 H 101 H 92 H Respiratory Rate 20 20 20 Respiratory Effort / Characteristics Respiratory Depth Respiratory Pattern Blood Pressure 117/68 Blood Pressure Mean 84 Blood Pressure Position Pulse Oximetry 94 93 95 Oxygen Delivery Method Sepsis Recent Fever Within 48 Hours Sepsis New/Unexplained Change in Mental Status Sepsis Action Taken by Nursing 08/29/21 16:30 Temperature Temperature Source Pulse Rate 105 H Pulse Rate from SpO2 Sensor 106 H Respiratory Rate 17 Respiratory Effort / Characteristics Respiratory Depth Respiratory Pattern Blood Pressure Blood Pressure Mean Blood Pressure Position Pulse Oximetry 100 Oxygen Delivery Method Sepsis Recent Fever Within 48 Hours Sepsis New/Unexplained Change in Mental Status Sepsis Action Taken by [facility] Medications Current Medication List: was personally reviewed by me Laboratory Data Attestation: I reviewed the patient's lab results. Result diagrams: 08/29/21 14:40 08/29/21 14:40 Lab Results 08/29/21 08/29/21 08/29/21 Range/Units 14:37 14:37 14:40 WBC 19.04 H (4.8-10.8) K/ul RBC 4.90 (3.93-5.22) M/uL Hgb 11.1 L (12.0-16.0) g/dl Hct 36.0 (34.1-44.9) % MCV 73.5 L (80.0-100.0) fL MCH 22.7 L (25.0-34.0) pg MCHC 30.8 L (32.0-36.0) g/dL RDW Std Deviation 43.7 (36.4-46.3) fL RDW Coeff of Inocencio 16.7 H (11.5-14.5) % Plt Count 362 (130-400) K/uL MPV 9.6 (9.4-12.3) fL Immature Gran % (Auto) 0.2 % Neut % (Auto) 14.1 % Lymph % (Auto) 10.0 % [place] % (Auto) 3.8 % Eos % (Auto) 71.2 % Baso % (Auto) 0.7 % Neut # (Auto) 2.69 (1.4-6.5) K/uL Lymph # (Auto) 1.91 (1.2-3.4) K/uL [place] # (Auto) 0.73 (0.24-0.82) K/uL Eos # (Auto) 13.55 H (0-0.50) K/uL Baso # (Auto) 0.13 (0-0.2) K/uL Immature Gran # (Auto) 0.03 H (0.00-0.02) K/uL ESR (0-30) mm/hr PT (9.0-12.0) Seconds INR (0.9-1.1) APTT (21.0-31.0) Seconds PTT Ratio D-Dimer (0-500) ug/L FEU VBG pH (7.36-7.41) VBG pCO2 (38-50) mmHg VBG pO2 mmHg VBG HCO3 mmol/L VBG O2 Saturation % VBG Base Excess mEq/L Sodium (136-145) mmol/L Potassium (3.5-5.1) mmol/L Chloride (98-107) mmol/L Carbon Dioxide (21-32) mmol/L Anion Gap (3-11) BUN (6-23) mg/dl Creatinine (0.6-1.2) mg/dl Est Cr Clr Drug Dosing ml/min Est GFR ( Amer) ml/min Est GFR (Non-Af Amer) ml/min BUN/Creatinine Ratio (10-20) Glucose (70-99(Fasting)) mg/dl Calcium (8.5-10.1) mg/dl Magnesium (1.7-2.4) mg/dl Total Bilirubin (0.2-1.0) mg/dl AST (13-39) U/L ALT (7-52) U/L Alkaline Phosphatase (34-104) U/L Troponin I High Sens (0-14) pg/ml C-Reactive Protein (0-0.5) mg/dl B-Natriuretic Peptide (0-100) pg/ml Total Protein (6.0-8.3) gm/dl Albumin (3.4-5.0) gm/dl Globulin (2.5-4.0) gm/dl Albumin/Globulin Ratio (0.9-2) Procalcitonin (0-0.5) ng/ml HCG, Qual (Negative) Urine Color Yellow Urine Appearance Clear (Clear) Urine pH 7.0 (4.5-7.5) Ur Specific [place] 1.005 (1.000-1.030) Urine Protein Negative (Negative) Urine Glucose (UA) Negative (Negative) Urine Ketones Negative (Negative) Urine Blood Negative (Negative) Urine Nitrite Negative (Negative) Urine Bilirubin Negative (Negative) Urine Urobilinogen Negative (Negative) Ur Leukocyte Esterase Negative (Negative) SARS-CoV-2 (PCR) NEGATIVE (Negative) Influenza Type A (PCR) Negative (Neg) Influenza Type B (PCR) Negative (Neg) RSV (RT-PCR) Negative (Neg) 08/29/21 08/29/21 08/29/21 Range/Units 14:40 14:40 14:40 WBC (4.8-10.8) K/ul RBC (3.93-5.22) M/uL Hgb (12.0-16.0) g/dl Hct (34.1-44.9) % MCV (80.0-100.0) fL MCH (25.0-34.0) pg MCHC (32.0-36.0) g/dL RDW Std Deviation (36.4-46.3) fL RDW Coeff of Inocencio (11.5-14.5) % Plt Count (130-400) K/uL MPV (9.4-12.3) fL Immature Gran % (Auto) % Neut % (Auto) % Lymph % (Auto) % [place] % (Auto) % Eos % (Auto) % Baso % (Auto) % Neut # (Auto) (1.4-6.5) K/uL Lymph # (Auto) (1.2-3.4) K/uL [place] # (Auto) (0.24-0.82) K/uL Eos # (Auto) (0-0.50) K/uL Baso # (Auto) (0-0.2) K/uL Immature Gran # (Auto) (0.00-0.02) K/uL ESR (0-30) mm/hr PT 11.1 (9.0-12.0) Seconds INR 1.0 (0.9-1.1) APTT 30.0 (21.0-31.0) Seconds PTT Ratio 1.1 D-Dimer (0-500) ug/L FEU VBG pH (7.36-7.41) VBG pCO2 (38-50) mmHg VBG pO2 mmHg VBG HCO3 mmol/L VBG O2 Saturation % VBG Base Excess mEq/L Sodium 133 L (136-145) mmol/L Potassium 3.9 (3.5-5.1) mmol/L Chloride 101 (98-107) mmol/L Carbon Dioxide 24 (21-32) mmol/L Anion Gap 8 (3-11) BUN 7 (6-23) mg/dl Creatinine 0.79 (0.6-1.2) mg/dl Est Cr Clr Drug Dosing 86.5 ml/min Est GFR ( Amer) 101.2 ml/min Est GFR (Non-Af Amer) 87.3 ml/min BUN/Creatinine Ratio 8.9 L (10-20) Glucose 88 (70-99(Fasting)) mg/dl Calcium 8.7 (8.5-10.1) mg/dl Magnesium 1.8 (1.7-2.4) mg/dl Total Bilirubin 0.4 (0.2-1.0) mg/dl AST 19 (13-39) U/L ALT 14 (7-52) U/L Alkaline Phosphatase 65 (34-104) U/L Troponin I High Sens 42.5 H (0-14) pg/ml C-Reactive Protein (0-0.5) mg/dl B-Natriuretic Peptide 146 H (0-100) pg/ml Total Protein 7.7 (6.0-8.3) gm/dl Albumin 3.5 (3.4-5.0) gm/dl Globulin 4.2 H (2.5-4.0) gm/dl Albumin/Globulin Ratio 0.8 L (0.9-2) Procalcitonin (0-0.5) ng/ml HCG, Qual (Negative) Urine Color Urine Appearance (Clear) Urine pH (4.5-7.5) Ur Specific [place] (1.000-1.030) Urine Protein (Negative) Urine Glucose (UA) (Negative) Urine Ketones (Negative) Urine Blood (Negative) Urine Nitrite (Negative) Urine Bilirubin (Negative) Urine Urobilinogen (Negative) Ur Leukocyte Esterase (Negative) SARS-CoV-2 (PCR) (Negative) Influenza Type A (PCR) (Neg) Influenza Type B (PCR) (Neg) RSV (RT-PCR) (Neg) 08/29/21 08/29/21 08/29/21 Range/Units 14:40 14:40 14:40 WBC (4.8-10.8) K/ul RBC (3.93-5.22) M/uL Hgb (12.0-16.0) g/dl Hct (34.1-44.9) % MCV (80.0-100.0) fL MCH (25.0-34.0) pg MCHC (32.0-36.0) g/dL RDW Std Deviation (36.4-46.3) fL RDW Coeff of Inocencio (11.5-14.5) % Plt Count (130-400) K/uL MPV (9.4-12.3) fL Immature Gran % (Auto) % Neut % (Auto) % Lymph % (Auto) % [place] % (Auto) % Eos % (Auto) % Baso % (Auto) % Neut # (Auto) (1.4-6.5) K/uL Lymph # (Auto) (1.2-3.4) K/uL [place] # (Auto) (0.24-0.82) K/uL Eos # (Auto) (0-0.50) K/uL Baso # (Auto) (0-0.2) K/uL Immature Gran # (Auto) (0.00-0.02) K/uL ESR 96 H (0-30) mm/hr PT (9.0-12.0) Seconds INR (0.9-1.1) APTT (21.0-31.0) Seconds PTT Ratio D-Dimer (0-500) ug/L FEU VBG pH 7.44 H (7.36-7.41) VBG pCO2 35 L (38-50) mmHg VBG pO2 52 mmHg VBG HCO3 24 mmol/L VBG O2 Saturation 83.5 % VBG Base Excess 0.1 mEq/L Sodium (136-145) mmol/L Potassium (3.5-5.1) mmol/L Chloride (98-107) mmol/L Carbon Dioxide (21-32) mmol/L Anion Gap (3-11) BUN (6-23) mg/dl Creatinine (0.6-1.2) mg/dl Est Cr Clr Drug Dosing ml/min Est GFR ( Amer) ml/min Est GFR (Non-Af Amer) ml/min BUN/Creatinine Ratio (10-20) Glucose (70-99(Fasting)) mg/dl Calcium (8.5-10.1) mg/dl Magnesium (1.7-2.4) mg/dl Total Bilirubin (0.2-1.0) mg/dl AST (13-39) U/L ALT (7-52) U/L Alkaline Phosphatase (34-104) U/L Troponin I High Sens (0-14) pg/ml C-Reactive Protein (0-0.5) mg/dl B-Natriuretic Peptide (0-100) pg/ml Total Protein (6.0-8.3) gm/dl Albumin (3.4-5.0) gm/dl Globulin (2.5-4.0) gm/dl Albumin/Globulin Ratio (0.9-2) Procalcitonin (0-0.5) ng/ml HCG, Qual Negative (Negative) Urine Color Urine Appearance (Clear) Urine pH (4.5-7.5) Ur Specific [place] (1.000-1.030) Urine Protein (Negative) Urine Glucose (UA) (Negative) Urine Ketones (Negative) Urine Blood (Negative) Urine Nitrite (Negative) Urine Bilirubin (Negative) Urine Urobilinogen (Negative) Ur Leukocyte Esterase (Negative) SARS-CoV-2 (PCR) (Negative) Influenza Type A (PCR) (Neg) Influenza Type B (PCR) (Neg) RSV (RT-PCR) (Neg) 08/29/21 08/29/21 08/29/21 Range/Units 14:40 14:40 14:40 WBC (4.8-10.8) K/ul RBC (3.93-5.22) M/uL Hgb (12.0-16.0) g/dl Hct (34.1-44.9) % MCV (80.0-100.0) fL MCH (25.0-34.0) pg MCHC (32.0-36.0) g/dL RDW Std Deviation (36.4-46.3) fL RDW Coeff of Inocencio (11.5-14.5) % Plt Count (130-400) K/uL MPV (9.4-12.3) fL Immature Gran % (Auto) % Neut % (Auto) % Lymph % (Auto) % [place] % (Auto) % Eos % (Auto) % Baso % (Auto) % Neut # (Auto) (1.4-6.5) K/uL Lymph # (Auto) (1.2-3.4) K/uL [place] # (Auto) (0.24-0.82) K/uL Eos # (Auto) (0-0.50) K/uL Baso # (Auto) (0-0.2) K/uL Immature Gran # (Auto) (0.00-0.02) K/uL ESR (0-30) mm/hr PT (9.0-12.0) Seconds INR (0.9-1.1) APTT (21.0-31.0) Seconds PTT Ratio D-Dimer 1190 H* (0-500) ug/L FEU VBG pH (7.36-7.41) VBG pCO2 (38-50) mmHg VBG pO2 mmHg VBG HCO3 mmol/L VBG O2 Saturation % VBG Base Excess mEq/L Sodium (136-145) mmol/L Potassium (3.5-5.1) mmol/L Chloride (98-107) mmol/L Carbon Dioxide (21-32) mmol/L Anion Gap (3-11) BUN (6-23) mg/dl Creatinine (0.6-1.2) mg/dl Est Cr Clr Drug Dosing ml/min Est GFR ( Amer) ml/min Est GFR (Non-Af Amer) ml/min BUN/Creatinine Ratio (10-20) Glucose (70-99(Fasting)) mg/dl Calcium (8.5-10.1) mg/dl Magnesium (1.7-2.4) mg/dl Total Bilirubin (0.2-1.0) mg/dl AST (13-39) U/L ALT (7-52) U/L Alkaline Phosphatase (34-104) U/L Troponin I High Sens (0-14) pg/ml C-Reactive Protein 5.57 H (0-0.5) mg/dl B-Natriuretic Peptide (0-100) pg/ml Total Protein (6.0-8.3) gm/dl Albumin (3.4-5.0) gm/dl Globulin (2.5-4.0) gm/dl Albumin/Globulin Ratio (0.9-2) Procalcitonin < 0.05 (0-0.5) ng/ml HCG, Qual (Negative) Urine Color Urine Appearance (Clear) Urine pH (4.5-7.5) Ur Specific [place] (1.000-1.030) Urine Protein (Negative) Urine Glucose (UA) (Negative) Urine Ketones (Negative) Urine Blood (Negative) Urine Nitrite (Negative) Urine Bilirubin (Negative) Urine Urobilinogen (Negative) Ur Leukocyte Esterase (Negative) SARS-CoV-2 (PCR) (Negative) Influenza Type A (PCR) (Neg) Influenza Type B (PCR) (Neg) RSV (RT-PCR) (Neg) Administered Medications Lidocaine (Lidocaine 5% 1 Patch) 1 patch TD DAILY@1900 GLO Stop: 09/28/21 18:59 Last Admin: 08/29/21 19:36 Dose: 1 patch Documented By: ALEXANDRO Ondansetron HCl (Ondansetron Inj 2 Mg/Ml 2 Ml Vial) 4 mg IV Q6H PRN PRN Reason: Nausea Stop: 09/28/21 18:25 Last Admin: 08/29/21 19:36 Dose: 4 mg Documented By: ALEXANDRO Discontinued Medications Albuterol (Albut/Ipratrop 3mg/0.5mg Neb 3 Ml Vial) 3 ml NEB NOW STA; Protocol Stop: 08/29/21 16:04 Last Admin: 08/29/21 16:21 Dose: 3 ml Documented By: MELANIA Ceftriaxone Sodium (Rocephin) 2,000 mg in 70 mls @ 140 mls/hr IV NOW STA Stop: 08/29/21 16:15 Last Infusion: 08/29/21 16:51 Dose: 0 mls/hr Documented By: Admin: 08/29/21 16:21 Dose: 140 mls/hr Documented By: MELANIA Sodium Chloride (Nss 1000ml) 1,000 mls @ 999 mls/hr IV .Q1H1M ONE Stop: 08/29/21 16:46 Last Infusion: 08/29/21 17:22 Dose: 0 mls/hr Documented By: Admin: 08/29/21 16:21 Dose: 999 mls/hr Documented By: MELANIA Methylprednisolone (Methylprednisolone 40 Mg/Ml Vial) 40 mg IV NOW STA Stop: 08/29/21 17:30 Last Admin: 08/29/21 18:48 Dose: 40 mg Documented By: TENA Imaging Data Radiologist's Impression: Chest X-Ray 08/29/21 14:24 XR chest 1V portable CLINICAL HISTORY: Dyspnea COMPARISON STUDY: Chest CT July 04, 2017. Chest radiograph July 10, 2017. FINDINGS: Lung volumes are normal. No pneumothorax or pleural effusion is noted. Incidental note is made of an old, healed fracture of the right sixth rib. Cardiomediastinal silhouette is stable. No evidence for pulmonary edema. Hazy left lower lung airspace opacity is present. IMPRESSION: Hazy left lower lung airspace opacity which may reflect pneumonia. Radiographic follow-up is recommended. ACT 112: Negative or not required by law. Electronically signed by: Michael Stack M.D. 08/29/2021 2:51 PM Discharge Plan Visit Data Chief Complaint: Shortness of Breath/Dyspnea Stated Complaint: SOB, RAPID HEARTRATE ED Provider: Randolph Suero Discharge Problem: Pneumonia, RANDHAWA (dyspnea on exertion) Patient Disposition: Being Evaluated by Hospitalist Discharge Instructions Interventions: ED Discharge Assessment Last Done: 08/29/21 18:32
--- NOTE | 2021-08-29 14:52 | XRay Report ---
XR chest 1V portable CLINICAL HISTORY: Dyspnea COMPARISON STUDY: Chest CT July 04, 2017. Chest radiograph July 10, 2017. FINDINGS: Lung volumes are normal. No pneumothorax or pleural effusion is noted. Incidental note is m dinesh of an old, healed fracture of the right sixth rib. Cardiomediastinal silhouette is stable. No aleisha dence for pulmonary edema. Hazy left lower lung airspace opacity is present. IMPRESSION: Hazy left lower lung airspace opacity which may reflect pneumonia. Radiographic follow-u p is recommended. ACT 112: Negative or not required by law. Electronically signed by: Michael Stack M.D. 08/29/2021 2:51 PM
[2021-08-29 14:53] LABS: Base Excess VBG 0.1 mEq/L; Basophils # (auto) 0.13 K/uL (0-0.2); Basophils % (auto) 0.7 %; Eosinophils # (auto) 13.55 K/uL (0-0.50); Eosinophils % (auto) 71.2 %; HCO3 VBG 24 mmol/L; Hemoglobin 11.1 g/dl (12.0-16.0); Immature Granulocytes # (auto) 0.03 K/uL (0.00-0.02); Immature Granulocytes % (auto) 0.2 %; Lymphocytes # (auto) 1.91 K/uL (1.2-3.4); Mean Corpuscular Hemoglobin 22.7 pg (25.0-34.0); Mean Corpuscular Hgb Conc 30.8 g/dL (32.0-36.0); Mean Corpuscular Volume 73.5 fL (80.0-100.0); Mean Platelet Volume 9.6 fL (9.4-12.3); Monocytes # (auto) 0.73 K/uL (0.24-0.82); Monocytes % (auto) 3.8 %; Neutrophils # (auto) 2.69 K/uL (1.4-6.5); Neutrophils % (auto) 14.1 %; Oxygen Saturation VBG 83.5 %; PCO2 VBG 35 mmHg (38-50); PO2 VBG 52 mmHg; Platelet Count 362 K/uL (130-400); RDW Coefficient of Variation 16.7 % (11.5-14.5); RDW Standard Deviation 43.7 fL (36.4-46.3); White Blood Count 19.04 K/ul (4.8-10.8); pH VBG 7.44 (7.36-7.41)
[2021-08-29 14:59] LABS: Appearance Urine Clear (Clear); Bilirubin Urine Negative (Negative); Blood Urine Negative (Negative); Color Urine Yellow; Glucose Urine UA Negative (Negative); Ketones Urine Negative (Negative); Leukocyte Esterase Urine Negative (Negative); Nitrite Urine Negative (Negative); Protein Urine Negative (Negative); Specific Gravity Urine 1.005 (1.000-1.030); Urobilinogen Urine Negative (Negative)
[2021-08-29 15:19] LABS: Partial Thromboplastin Ratio 1.1; Prothrombin Time 11.1 Seconds (9.0-12.0)
[2021-08-29 15:21] LABS: Pregnancy Test, Serum Negative (Negative)
[2021-08-29 15:24] LABS: Albumin Globulin Ratio 0.8 (0.9-2); Albumin Level 3.5 gm/dl (3.4-5.0); BUN Creatinine Ratio 8.9 (10-20); Bilirubin,Total 0.4 mg/dl (0.2-1.0); Calcium 8.7 mg/dl (8.5-10.1); Creatinine Clr Calc Pharmacy 86.5 ml/min; Est GFR (African American) 101.2 ml/min; Est GFR (Non-African American) 87.3 ml/min; Globulin 4.2 gm/dl (2.5-4.0); Magnesium 1.8 mg/dl (1.7-2.4); Potassium 3.9 mmol/L (3.5-5.1); Total Protein 7.7 gm/dl (6.0-8.3)
[2021-08-29 15:36] LABS: Influenza A virus by PCR Negative (Neg); Influenza B virus by PCR Negative (Neg); RSV by PCR Negative (Neg); SARS CoV2 RNA(COVID-19) InHosp NEGATIVE (Negative)
[2021-08-29] MEDS ORDERED: cefTRIAXone SODIUM 2,000 MG/70 ML BAG IV STA (15:46)
[2021-08-29] MEDS ORDERED: SODIUM CHLORIDE 0.9% 1000ML 1,000 ML IV ONE (15:46)
[2021-08-29 15:51] LABS: D Dimer 1190 ug/L FEU (0-500)
[2021-08-29] MEDS ORDERED: ALBUT/IPRATROP 3MG/0.5MG NEB 3 ML VIAL NEB STA (16:03)
[2021-08-29 16:52] LABS: Troponin I High Sensitivity 42.5 pg/ml (0-14)
--- NOTE | 2021-08-29 17:16 | History & Physical Report ---
Date of Service August 29, 2021 Assessment & Plan (1) Polymyalgia rheumatica: Plan: She has classical symptoms of PMR with ESR 96 and elevated WBC. Regardless of diagnosis as she has weaned her steroids she definitely appears to be unmasking and inflammatory process - I'm doubtful this was started by Dupixent but likely was underlying all this time. Will send off EZEKIEL screen with AM labs Recommend follow up with rheumatology Start with solu-medrol 40mg IV now then prednisone 20mg PO daily This appears to be her main issue rather than shortness of breath currently (2) Pneumonia: Plan: Possible diagnosis. Minimal changes on chest x-ray. Given failed treatment with doxycycline will treat with ceftriaxone and azithromycin. (3) Shortness of breath: Plan: This does not appear to be the patient's main issue and she has other etiologies such as pneumonia or above to explain this problem pulmonary embolism. Despite elevated D-dimer and tachycardia she already had a CT angiogram on Monday therefore do not feel is warranted to repeat this as she is not hypoxic. Most likely she is feeling generally fatigued however and I suspect this is more her "shortness of breath" and related to PMR as above. (4) Severe persistent asthma dependent on systemic steroids: Plan: This appears to be much more stable since starting Dupixent No acute exacerbation suspected despite mild shortness of breath on exertion - possible this is related to a mild pneumonia as above. (5) Microcytic anemia: Plan: Iron studies in a.m. Plan VTE prophylaxis -low risk Diet - regular Disposition - observation on med/surg Admission and Anticipated Discharge Date Admission Date: August 29, 2021 History of Present Illness Chief Complaint: Shortness of breath and generalized pain Primary Care Provider: Ham Rudd MD Alicia Erazo is a 51-year-old female with previously steroid dependent asthma who presents to the ER with shortness of breath and generalized pain. She has visited [place] [facility] x3 times in the last 2 weeks for the same symptoms but reports getting worse shortness of breath on exertion. This is despite being treated with doxycycline for possible pneumonia since 08/24. Her main concern however is the pain in her shoulders and back. Associated weakness and fatigue. This has been progressively getting worse over the last month since she has been weaning her steroids down. She had been taking 20-30mg/day but it was only after going below 10mg/day she really noted a significant increase in her pain. She denies any headaches, chest pain, nasal congestion, sinus pain, fevers or chills. She reports her shortness of breath does not feel like her usual asthma exacerbations and from that stand point she has been doing better since starting Dupixent. She was started on Dupixent and weaning off steroids due to a jaw infection diagnosed in [place] in March. The jaw infection was treted surgically and she is completely over this now. She is tachycardiac and d-dimer is elevated to 1190 however she reports just recently having a CT angiogram for a pulmonary embolism in [place] on Monday which was negative. In the ER CXR showed a possible pneumonia in the left base, WBC was elevated, however procalcitonin was negative. Given failed outpatient treatment with doxycycline she was referred to medicine for admission and ongoing management of pneumonia, tachycardia and dyspnea on exertion. Allergies Allergy/AdvReac Type Severity Reaction Status Date / Time Egg Derived Allergy Severe Allergy Verified 08/29/21 16:51 testing with high reactivity in 2012 mepolizumab Allergy Severe Hives / Verified 08/29/21 16:51 paroxysmal bronchospasm lactose Allergy Mild Allergy Verified 08/29/21 16:51 testing in 2013 mouse protein Allergy Unknown RESPIRATORY Verified 08/29/21 16:51 DISTRESS sorbitan esters Allergy Unknown RESPIRATORY Verified 08/29/21 16:51 DISTRESS Home Medications Medication Instructions Recorded Confirmed Type cholecalciferol (vitamin D3) 25 100 mcg PO DAILY 07/23/19 08/29/21 History mcg (1,000 unit) capsule albuterol sulfate 90 mcg/actuation 2 puff inhalation Q6H PRN SOB #18 05/29/20 08/29/21 Rx aerosol inhaler grams epinephrine 0.3 mg/0.3 mL 0.3 mg (0.3 mL) IM Q4H PRN 04/27/21 08/29/21 Rx injection, auto-injector anaphylaxis #2 ea fluticasone 500 mcg-salmeterol 50 1 inh inhalation BID #60 ea 07/02/21 08/29/21 Rx mcg/dose blistr powdr for inhalation (Wixela Inhub) dupilumab 300 mg/2 mL subcutaneous 300 mg (2 mL) subcut .COMPLEX #12 07/19/21 08/29/21 Rx syringe (Dupixent) mL cyclobenzaprine 5 mg tablet 5 mg PO TID PRN Muscle Spasm 08/13/21 08/29/21 History prednisone 1 mg tablet See Rx Instructions .Route 08/13/21 08/29/21 Rx .COMPLEX #70 tabs calcium carbonate 600 mg-vitamin 1 tab PO DAILY 08/29/21 08/29/21 History D3 5 mcg (200 unit) tablet (Calcium 600 + D(3)) doxycycline hyclate 100 mg capsule 100 mg PO BID 08/29/21 08/29/21 History ipratropium 0.5 mg-albuterol 3 mg 3 ml inhalation QID PRN Shortness 08/29/21 08/29/21 History (2.5 mg base)/3 mL nebulization Of Breath Or Wheezing soln lidocaine 5 % topical patch 1 patch topical DAILY 08/29/21 08/29/21 History magnesium oxide 500 mg capsule 500 mg PO TID 08/29/21 08/29/21 History tizanidine 4 mg tablet 4 mg PO BID PRN Muscle Spasm 08/29/21 08/29/21 History Past Med/Surg History Medical History Asthma GERD (gastroesophageal reflux disease) Hx of steroid therapy SPOUSE STATES SHE HAS BEEN ON FOR 7 YEARS Surgical History History of repair of hiatal hernia History of tonsillectomy Hx laparoscopic cholecystectomy Hx of esophagogastroduodenoscopy Social History Smoking Status: Never smoker Second Hand Exposure: No; Do You Dip or Chew Tobacco: No; Tobacco Cessation Education Requested by Patient: No Hx Alcohol Use: No Hx Substance Use: No Preferred Language: Luxembourger Communication Ability: Effective Housekeeping Room Attendant Required: No Beliefs That Will Affect Care: Hoahaoism Hoahaoism Beliefs: Zoroastrian , Spiritual Spiritual Healthcare Practices: Zoroastrian and Cultural Cultural Beliefs: Zoroastrian Current Living Situation: Spouse and Family Other Information That Helps Us Care for You: No Feels Safe at Home: Yes Safety Concerns: Feels Safe At This Time Assistive Devices: None Review of Systems Review of Systems: All systems reviewed & are unremarkable except as noted in HPI & below Physical Exam Constitutional: WD/WN, vitals as above Eyes: PERRL, conjunctivae normal, anicteric sclerae ENMT: external ear and nose normal, oropharynx normal Neck: trachea midline, no thyromegaly Respiratory: normal respiratory effort, lungs clear to auscultation Cardiovascular: Rate/Rhythm: regular rhythm and + tachycardic Heart Sounds: no murmur Vessels: no JVD Extremities: normal capillary refill; no calf tenderness and no pedal edema Gastrointestinal (Abdomen): normal bowel sounds, soft, nontender, no hepatosplenomegaly Musculoskeletal: no cyanosis or clubbing, extremities motor strength 5/5 pain on palpation of bilateral shoulder muscles with weakness in shoulder flexion and abduction Skin: no rashes, warm and dry Neurologic: moves all extremities and awake; not confused Psychiatric: A+Ox3, euthymic affect Lymphatic: no cervical or axillary lymphadenopathy Results & Data Results & Data ([facility]) Vital Signs (Past 12 Hours) Vital Signs Temp Pulse Resp BP Pulse Ox O2 Del Method 08/29/21 16:00 91 H 20 117/68 95 08/29/21 15:30 102 H 20 93 08/29/21 15:00 97 H 20 94 08/29/21 14:58 93 Room Air 08/29/21 13:30 93 Room Air 08/29/21 13:37 36.7 C 121 H 20 104/63 95 Room Air Diagnostic Findings XR chest 1V portable CLINICAL HISTORY: Dyspnea COMPARISON STUDY: Chest CT July 04, 2017. Chest radiograph July 10, 2017. FINDINGS: Lung volumes are normal. No pneumothorax or pleural effusion is noted. Incidental note is made of an old, healed fracture of the right sixth rib. Cardiomediastinal silhouette is stable. No evidence for pulmonary edema. Hazy left lower lung airspace opacity is present. IMPRESSION: Hazy left lower lung airspace opacity which may reflect pneumonia. Radiographic follow-up is recommended. Medications Administered ER medications given: Ceftriaxone 2 g IV NSS 1L bolus DuoNeb 3 mL NEB ECG Rate (beats per minute): 110 Rhythm: sinus tachycardia Findings: + other (Left posterior fascicular block) Comparison ECG Date: from (January 05, 2017) Change: the following changes noted (Nonspecific T wave abnormality now evident in Inferior leads) Code Status & VTE Plan Code Status Full VTE Prophylaxis Plan VTE Prophylaxis will be ordered: No PG Care Time/CCT Total # of Minutes Spent Total Time Spent with Patient: Total time spent is greater than 50% in coordination of care (as documented) at patient's floor/unit and/or counseling patient: Coding Level of Care Code INT OBSERVATION CARE 70M LVL 3 Diagnoses Polymyalgia rheumatica M35.3 Pneumonia J18.9 Shortness of breath R06.02 Severe persistent asthma dependent on systemic steroids J45.50; Z79.52 Microcytic anemia D50.9
[2021-08-29] MEDS ORDERED: ACETAMINOPHEN 325 MG TAB PO PRN (18:26)
[2021-08-29] MEDS ORDERED: ONDANSETRON INJ 2 MG/ML 2 ML VIAL IV PRN (18:26)
[2021-08-29] MEDS ORDERED: tiZANidine HCL 4 MG TABLET PO PRN (18:26)
[2021-08-29] MEDS: LIDOCAINE 5% 1 PATCH TD SCH (19:36)
[2021-08-29] MEDS ORDERED: AZITHROMYCIN 250 MG TAB PO ONE (20:15)
[2021-08-29] MEDS: DICLOFENAC SODIUM 75 MG TABCR PO SCH (20:44)
[2021-08-29] MEDS: MAGNESIUM OXIDE 400 MG TAB PO SCH (20:45)
[2021-08-30 06:34] LABS: Basophils # (auto) 0.07 K/uL (0-0.2); Basophils % (auto) 1.2 %; Eosinophils # (auto) 0.24 K/uL (0-0.50); Eosinophils % (auto) 4.1 %; Hematocrit (blood only) 37.9 % (34.1-44.9); Hemoglobin 11.4 g/dl (12.0-16.0); Immature Granulocytes # (auto) 0.02 K/uL (0.00-0.02); Immature Granulocytes % (auto) 0.3 %; Lymphocytes # (auto) 1.28 K/uL (1.2-3.4); Mean Corpuscular Hemoglobin 22.4 pg (25.0-34.0); Mean Corpuscular Hgb Conc 30.1 g/dL (32.0-36.0); Mean Corpuscular Volume 74.6 fL (80.0-100.0); Mean Platelet Volume 9.7 fL (9.4-12.3); Monocytes # (auto) 0.14 K/uL (0.24-0.82); Monocytes % (auto) 2.4 %; Neutrophils # (auto) 4.07 K/uL (1.4-6.5); Platelet Count 364 K/uL (130-400); RDW Coefficient of Variation 16.6 % (11.5-14.5); RDW Standard Deviation 44.2 fL (36.4-46.3); Red Blood Count 5.08 M/uL (3.93-5.22); White Blood Count 5.82 K/ul (4.8-10.8)
[2021-08-30 06:36] LABS: BUN Creatinine Ratio 15.3 (10-20); C Reactive Protein 6.69 mg/dl (0-0.5); Calcium 8.4 mg/dl (8.5-10.1); Creatinine Clr Calc Pharmacy 94.9 ml/min; Est GFR (African American) 113.2 ml/min; Est GFR (Non-African American) 97.7 ml/min; Potassium 4.7 mmol/L (3.5-5.1)
[2021-08-30] MEDS ORDERED: LACTATED RINGER'S 1,000 ML IV ONE (07:21)
[2021-08-30] MEDS: AZITHROMYCIN 250 MG TAB PO SCH (07:37)
[2021-08-30] MEDS: DICLOFENAC SODIUM 75 MG TABCR PO SCH (07:37)
[2021-08-30] MEDS: CHOLECALCIFEROL 1,000 UNITS 25 MCG TAB PO SCH (07:37)
[2021-08-30] MEDS: CALCIUM 600MG + VIT D 400 IU TAB PO SCH (07:37)
[2021-08-30] MEDS: MAGNESIUM OXIDE 400 MG TAB PO SCH ×3 (07:37→19:54)
[2021-08-30] MEDS: FLUTICASONE/VILANTEROL 200/25MCG 14 PUFFS/INHALER INH SCH (07:38)
[2021-08-30] MEDS: MAGNESIUM SULFATE / D5W 1 GM/100 ML BAG IV SCH ×2 (07:38→09:51)
--- NOTE | 2021-08-30 08:32 | Cardiology Consultation ---
Date of Consultation August 30, 2021 Assessment & Plan (1) Atrial flutter: (2) RANDHAWA (dyspnea on exertion): (3) Chest discomfort: (4) Elevated troponin: Plan 1. Atrial flutter: She has developed typical atrial flutter, although there is a possibility she had atrial fibrillation on presentation but that must have been made on clinical grounds by somebody at the front end mechanic. She does not really recall having these sensations before this hospitalization but she is not very symptomatic. Her atrial size appears large on electrocardiography, possibly due to chronic lung disease, although by my review of her echocardiogram did not seem particularly large and neither did her right heart. I agree with rate control, probably calcium blockade, and anticoagulation at least for the short-term. 2. Dyspnea on exertion: She has a number of reasons to have shortness of breath including her underlying lung disease, possible pneumonia, as well as possible intermittent atrial fibrillation or flutter that she does not feel as palpitations. We will need to monitor her for the frequency of these arrhythmias in the future. 3. Shoulder and back discomfort: I agree this is almost certainly noncardiac although she does have an elevated troponin. 4. Elevated troponin: Her presenting troponin was minimally elevated to around 45, a second troponin this morning had dropped back down to 17, it is possible that she was in an arrhythmia on presentation or simply stressed which would e xplain the small elevation. The trend however is not worrisome and I do not think I would pursue further evaluation at this time. History of Present Illness Reason for Consultation: Atrial flutter, upper thorax discomfort, shortness of breath Attending Physician: Alejandro Kuhn MD History of Present Illness This is a 51-year-old woman who has been seen for many years by pulmonary including Dr. Guidry, Dr. Kaufman and most recently Dr. Whyte for steroid-dependent asthma. She did have a small pericardial effusion identified in 2012 however on stress echocardiography August 30, 2016 her left ventricular size and function were normal with normal left ventricular wall thickness and normal left ventricular ejection fraction. No effusion is mentioned. She exercised quite well to 8.3 METS. More recently her pulmonary medications were adjusted and she was gradually being tapered off of her steroids. She has visited the emergency room in [place] 3 times due to breathing difficulty and has had CTs chest scanning wi thout evidence of pulmonary emboli by report in the progress notes, but was noted to have pneumonia and was started on doxycycline sometime in early to mid August. She presented to our emergency room on August 29, 2021 with complaints of shortness of breath as well as upper shoulder and back discomfort. She was noted to be tachycardic and she was treated with intravenous antibiotics, bronchodilators and intravenous fluids. She continued to have difficulty with shortness of breath with minimal exertion as well as ongoing tachycardia. She has been having shoulder and back discomfort, weakness and fatigue and has an elevated sed rate and autoimmune disease is being considered. She is placed back on steroids. This morning at about 630 she developed atrial flutter with a variable heart rate, subsequently that became 2-1 and has remained with a heart rate of about 130 bpm. At the time of my examination she was sitting in bed and was in 2-1 atrial flutter. She was aware of the sensation, she has not felt exactly like this in the past but when she first presented yesterday she evidently was told that she was in atrial fibrillation and she felt that her heart rate was fast, however by the time she got back to the room was hooked up to the monitor she told me those symptoms had resolved. More recently she has not been very active and she is getting quite short of breath with activities as well as having her back and shoulder discomfort so she has not been able to tell with she has had a change in exercise ability. She does not really recall having the symptoms of palpitations before. Her back and shoulder discomfort is primarily with movement, although not strenuous activity, and she does not have precordial chest discomfort to suggest angina. Her atrial flutter resolved spontaneously at around noon today and she has been in sinus rhythm since. Allergies Allergy/AdvReac Type Severity Reaction Status Date / Time Egg Derived Allergy Severe Allergy Verified 08/29/21 16:51 testing with high reactivity in 2013 mepolizumab Allergy Severe Hives / Verified 08/29/21 16:51 paroxysmal bronchospasm lactose Allergy Mild Allergy Verified 08/29/21 16:51 testing in 2013 mouse protein Allergy Unknown RESPIRATORY Verified 08/29/21 16:51 DISTRESS sorbitan esters Allergy Unknown RESPIRATORY Verified 08/29/21 16:51 DISTRESS Home Medications Medication Instructions Recorded Confirmed Type cholecalciferol (vitamin D3) 25 100 mcg PO DAILY 07/23/19 08/29/21 History mcg (1,000 unit) capsule albuterol sulfate 90 mcg/actuation 2 puff inhalation Q6H PRN SOB #18 05/29/20 08/29/21 Rx aerosol inhaler grams epinephrine 0.3 mg/0.3 mL 0.3 mg (0.3 mL) IM Q4H PRN 04/27/21 08/29/21 Rx injection, auto-injector anaphylaxis #2 ea fluticasone 500 mcg-salmeterol 50 1 inh inhalation BID #60 ea 07/02/21 08/29/21 Rx mcg/dose blistr powdr for inhalation (Wixela Inhub) dupilumab 300 mg/2 mL subcutaneous 300 mg (2 mL) subcut .COMPLEX #12 07/19/21 08/29/21 Rx syringe (Dupixent) mL cyclobenzaprine 5 mg tablet 5 mg PO TID PRN Muscle Spasm 08/13/21 08/29/21 History prednisone 1 mg tablet See Rx Instructions .Route 08/13/21 08/29/21 Rx .COMPLEX #70 tabs calcium carbonate 600 mg-vitamin 1 tab PO DAILY 08/29/21 08/29/21 History D3 5 mcg (200 unit) tablet (Calcium 600 + D(3)) doxycycline hyclate 100 mg capsule 100 mg PO BID 08/29/21 08/29/21 History ipratropium 0.5 mg-albuterol 3 mg 3 ml inhalation QID PRN Shortness 08/29/21 08/29/21 History (2.5 mg base)/3 mL nebulization Of Breath Or Wheezing soln lidocaine 5 % topical patch 1 patch topical DAILY 08/29/21 08/29/21 History magnesium oxide 500 mg capsule 500 mg PO TID 08/29/21 08/29/21 History tizanidine 4 mg tablet 4 mg PO BID PRN Muscle Spasm 08/29/21 08/29/21 History Patient History Medical History Asthma GERD (gastroesophageal reflux disease) Hx of steroid therapy SPOUSE STATES SHE HAS BEEN ON FOR 7 YEARS Surgical History History of repair of hiatal hernia History of tonsillectomy Hx laparoscopic cholecystectomy Hx of esophagogastroduodenoscopy Social History Smoking Status: Never smoker Second Hand Exposure: No; Do You Dip or Chew Tobacco: No; Tobacco Cessation Education Requested by Patient: No Hx Alcohol Use: No Hx Substance Use: No Preferred Language: Pashto Communication Ability: Effective Application Development Consultant Required: No Beliefs That Will Affect Care: Holiness Holiness Beliefs: Sikhism , Spiritual Spiritual Healthcare Practices: Sikhism and Cultural Cultural Beliefs: Sikhism Current Living Situation: Spouse and Family Other Information That Helps Us Care for You: No Feels Safe at Home: Yes Safety Concerns: Feels Safe At This Time Assistive Devices: None Review of Systems Review of Systems: All systems reviewed & are unremarkable except as noted in HPI & below Physical Exam Physical Exam: Constitutional: Alert, cooperative and in no distress. HEENT: Unremarkable Neck: No jugular venous distention, carotid pulses are normal and equal bila terally without bruits. Pulmonary: Clear to auscultation bilaterally. Cardiac: Regular rapid rhythm with no murmur, gallop or rub. Abdomen: Soft, nontender with normal bowel sounds. Extremities: No edema. Distal pulses intact. Neurologic: No focal findings. Gait was not tested. Skin: No rash, ecchymoses or petechiae. Results & Data ([facility]) Vital Signs (Past 12 Hours) Vital Signs Pulse Resp BP Pulse Ox O2 Del Method 08/30/21 08:22 102 H 16 95/64 L 95 Room Air 08/30/21 07:00 124 H 16 86/66 L 95 Room Air 08/30/21 06:04 83 18 110/53 L 93 Room Air 08/30/21 03:09 87 16 93/59 L 91 Room Air 08/29/21 23:24 100 H 17 99/63 L 92 Room Air 08/29/21 22:30 102 H 16 106/65 94 Room Air 08/29/21 21:23 104 H 16 91/58 L 94 Room Air Laboratory Results Cardiac Enzymes 08/29/21 08/29/21 Range/Units 14:40 14:40 AST 19 (13-39) U/L Troponin I High Sens 42.5 H (0-14) pg/ml B-Natriuretic Peptide 146 H (0-100) pg/ml Coagulation 08/29/21 08/29/21 Range/Units 14:40 14:40 PT 11.1 (9.0-12.0) Seconds APTT 30.0 (21.0-31.0) Seconds B-Natriuretic Peptide 146 H (0-100) pg/ml CBC 08/29/21 08/30/21 Range/Units 14:40 05:57 WBC 19.04 H 5.82 D (4.8-10.8) K/ul RBC 4.90 5.08 (3.93-5.22) M/uL Hgb 11.1 L 11.4 L (12.0-16.0) g/dl Hct 36.0 37.9 (34.1-44.9) % Plt Count 362 364 (130-400) K/uL Neut # (Auto) 2.69 4.07 (1.4-6.5) K/uL Lymph # (Auto) 1.91 1.28 (1.2-3.4) K/uL Bond # (Auto) 0.73 0.14 L (0.24-0.82) K/uL Eos # (Auto) 13.55 H 0.24 (0-0.50) K/uL Baso # (Auto) 0.13 0.07 (0-0.2) K/uL Comprehensive Metabolic Panel 08/29/21 08/30/21 Range/Units 14:40 05:57 Sodium 133 L 135 L (136-145) mmol/L Potassium 3.9 4.7 D (3.5-5.1) mmol/L Chloride 101 104 (98-107) mmol/L Carbon Dioxide 24 23 (21-32) mmol/L BUN 7 11 (6-23) mg/dl Creatinine 0.79 0.72 (0.6-1.2) mg/dl Glucose 88 124 H (70-99(Fasting)) mg/dl Calcium 8.7 8.4 L (8.5-10.1) mg/dl AST 19 (13-39) U/L ALT 14 (7-52) U/L Alkaline Phosphatase 65 (34-104) U/L Total Protein 7.7 (6.0-8.3) gm/dl Albumin 3.5 (3.4-5.0) gm/dl Intake and Output 08/29/21 08/30/21 08/30/21 22:59 06:59 14:59 Intake Total 1070 / 1070 100 / 100 Balance 1070 / 1070 100 / 100 Intake: IV 1070 / 1070 100 / 100 Magnesium Sulfate / D5w 1 gm In 100 / 100 100 ml @ 50 mls/hr IV Q2H GLO Rx#:[id number] Sodium Chloride 0.9% 1000ML 1, 1000 / 1000 000 ml @ 999 mls/hr IV .Q1H1M ONE Rx#:[id number] cefTRIAXone SODIUM 2,000 mg In 70 / 70 70 ml @ 140 mls/hr IV NOW STA Rx#:[id number] Other: Weight 71.8 kg Weight Measurement Method Built in [facility] Diagnostic Findings Telemetry: Sinus tachycardia until around 6:30 AM August 30, 2021 when she develops atrial flutter initially variable but subsequently 2-1. Electrocardiogram: On admission sinus tachycardia at 110 bpm, prominent P waves suggesting atrial enlargement. A subsequent electrocardiogram this morning shows typical atrial flutter with variable AV conduction. Her most recent electrocardiogram from the afternoon of August 30, 2021 at around 2 PM shows return to sinus rhythm. An echocardiogram was done today, that is not formally read as yet but on my review her left ventricular function appears normal as does her right heart size and function. She does not have a significant pericardial effusion. PG Care Time/CCT Total # of Minutes Spent Total Time Spent with Patient: Total time spent is greater than 50% in coordination of care (as documented) at patient's floor/unit and/or counseling patient: Coding Level of Care Code 14183 Inpt Consult Level 4 Diagnoses Atrial flutter I48.3 Atrial flutter type: typical RANDHAWA (dyspnea on exertion) R06.09 Chest discomfort R07.89 Elevated troponin R77.8 (1) Atrial flutter Atrial flutter type: typical Qualified Code(s): I48.3 - Typical atrial flutter
[2021-08-30] MEDS: predniSONE 20 MG TAB PO SCH (09:23)
--- NOTE | 2021-08-30 10:14 | Hospitalist Progress Note ---
Date of Service August 30, 2021 Assessment & Plan (1) Atrial flutter: Plan: with RVR TTE TSH Will defer anticoagulation and rate control to cardiology in setting of her severe asthma and lack of symptoms currently Consult cardiology (2) Polymyalgia rheumatica: Plan: She has classical symptoms of PMR with ESR 96 and elevated WBC. Substantial improvement with IV Solu-medrol overnight fits this diagnosis I suspect her "shortness of breath" is more fatigue from PMR and appears better today. There was no suspicion of asthma exacerbation on admission Will send off EZEKIEL screen with AM labs Recommend follow up with rheumatology Continue prednisone 20mg PO - patient aware to wean slowly as able and recommend with her PCP to measure ESR intermittently. (3) Pneumonia: Plan: Possible diagnosis. Minimal changes on chest x-ray and shortness of breath complaint on admission. Given failed treatment with doxycycline will continue short 5 day course with ceftriaxone and azithromycin. (4) Shortness of breath: Plan: Her recent "shortness of breath" is more consistent with fatigue. Unclear if intermittent atrial flutter contributing however. She is not hypoxic and no asthma exacerbation suspected. (5) Severe persistent asthma dependent on systemic steroids: Plan: This appears to be much more stable since starting Dupixent No acute exacerbation suspected despite mild shortness of breath on exertion - possible this is related to a mild pneumonia as above. Continue her routine maintenane inhalers (6) Microcytic anemia: Plan: Transferrin sats 6%. FOB ordered. Ferrous sulphate 325mg QOD Will need follow GI referral and workup with colonoscopy if not recently performed Plan VTE prophylaxis - deferred anticoagulation for atrial flutter to cardiology pending TTE results Diet - regular Disposition - upgrade to full admission on PCU due to flutter with RVR as above Admission and Anticipated Discharge Date Admission Date: August 29, 2021 Subjective Patient much improved since admission. Reports her back/shoulder pain has mostly resolved with solu-medrol and she hasn't had this kind of relief for weeks. However her rhythm flipped into atrial flutter with RVR this morning around 6:30am, current rate 130 bpm. She is relatively asymptomatic with this and denies chest pain and palliations but feels there is something wrong. No history of atrial fibrillation or flutter in the past. She does not drink alcohol. Review of Systems Review of Systems: All systems reviewed & are unremarkable except as noted in Subjective Physical Exam Constitutional: WD/WN, vitals as above Respiratory: normal respiratory effort, lungs clear to auscultation Cardiovascular: Rate/Rhythm: + tachycardic and + irregularly irregular Heart Sounds: no murmur Vessels: no JVD Extremities: normal capillary refill; no calf tenderness and no pedal edema Gastrointestinal (Abdomen): normal bowel sounds, soft, nontender, no hepatosplenomegaly Musculoskeletal: no cyanosis or clubbing, extremities motor strength 5/5 No trapezius pain on palpation Skin: no rashes, warm and dry Neurologic: moves all extremities and awake; not confused Psychiatric: A+Ox3, euthymic affect Results & Data Results & Data ([facility]) Vital Signs (Past 12 Hours) Vital Signs Pulse Resp BP Pulse Ox O2 Del Method 08/30/21 09:24 128 H 16 94/68 L 95 Room Air 08/30/21 08:22 102 H 16 95/64 L 95 Room Air 08/30/21 07:00 124 H 16 86/66 L 95 Room Air 08/30/21 06:04 83 18 110/53 L 93 Room Air 08/30/21 03:09 87 16 93/59 L 91 Room Air 08/29/21 23:24 100 H 17 99/63 L 92 Room Air 08/29/21 22:30 102 H 16 106/65 94 Room Air PG Care Time/CCT Total # of Minutes Spent Total Time Spent with Patient: Total time spent is greater than 50% in coordination of care (as documented) at patient's floor/unit and/or counseling patient: Coding Level of Care Code 96419 Subseq Hosp Care Lvl 3 Diagnoses Atrial flutter I48.3 Atrial flutter type: typical Polymyalgia rheumatica M35.3 Pneumonia J18.9 Shortness of breath R06.02 Severe persistent asthma dependent on systemic steroids J45.50; Z79.52 Microcytic anemia D50.9 (1) Atrial flutter Atrial flutter type: typical Qualified Code(s): I48.3 - Typical atrial flutter
--- NOTE | 2021-08-30 14:13 | Electrocardiogram Report ---
Test Reason : Blood Pressure : / mmHG Vent. Rate : 110 BPM Atrial Rate : 110 BPM P-R Int : 176 ms QRS Dur : 092 ms QT Int : 350 ms P-R-T Axes : 078 115 022 degrees QTc Int : 473 ms Sinus tachycardia Possible Left atrial enlargement Left posterior fascicular block Cannot rule out Inferior infarct , age undetermined Abnormal ECG When compared with ECG of 05-JAN-2017 13:06, Vent. rate has increased BY 36 BPM Nonspecific T wave abnormality now evident in Inferior leads Confirmed by Yaya Shelton ([id number]) on 08/30/2021 2:13:21 PM Referred By: REFERRED SELF Confirmed By:Yaya Shelton
--- NOTE | 2021-08-30 14:45 | Electrocardiogram Report ---
Test Reason : Blood Pressure : / mmHG Vent. Rate : 103 BPM Atrial Rate : 249 BPM P-R Int : 000 ms QRS Dur : 090 ms QT Int : 380 ms P-R-T Axes : 000 092 074 degrees QTc Int : 497 ms Age and gender specific ECG analysis Atrial flutter with variable A-V block Rightward axis Abnormal ECG When compared with ECG of 29-AUG-2021 13:45, (unconfirmed) Atrial flutter is now Present Confirmed by Yaya Shelton ([id number]) on 08/30/2021 2:45:24 PM Referred By: REFERRED SELF Confirmed By:Yaya Shelton
--- NOTE | 2021-08-30 14:55 | Electrocardiogram Report ---
Test Reason : Blood Pressure : / mmHG Vent. Rate : 080 BPM Atrial Rate : 080 BPM P-R Int : 220 ms QRS Dur : 092 ms QT Int : 412 ms P-R-T Axes : 059 090 031 degrees QTc Int : 475 ms Sinus rhythm with 1st degree A-V block Possible Left atrial enlargement Rightward axis Low voltage QRS Borderline ECG When compared with ECG of 30-AUG-2021 07:11, (unconfirmed) Sinus rhythm has replaced Atrial flutter Confirmed by Yaya Shelton ([id number]) on 08/30/2021 2:54:55 PM Referred By: REFERRED SELF Confirmed By:Yaya Shelton
[2021-08-30] MEDS ORDERED: cefTRIAXone SODIUM 2,000 MG in DEXTROSE 5% 50 ML IV SCH (16:00)
--- NOTE | 2021-08-30 17:37 | XCELERA ---
[id number] \\[id number]_[id number]
[2021-08-30] MEDS: LIDOCAINE 5% 1 PATCH TD SCH (19:53)
[2021-08-30] MEDS: APIXABAN 5 MG TABLET PO SCH (19:54)
[2021-08-30] MEDS ORDERED: ALBUTEROL 0.083% NEBU SOLN 3 ML VIAL NEB STA (20:44)
[2021-08-31 06:42] LABS: Hematocrit (blood only) 33.7 % (34.1-44.9); Hemoglobin 10.1 g/dl (12.0-16.0); Mean Corpuscular Hemoglobin 22.5 pg (25.0-34.0); Mean Corpuscular Volume 75.1 fL (80.0-100.0); Mean Platelet Volume 9.5 fL (9.4-12.3); Platelet Count 379 K/uL (130-400); RDW Coefficient of Variation 16.5 % (11.5-14.5); RDW Standard Deviation 44.1 fL (36.4-46.3); Red Blood Count 4.49 M/uL (3.93-5.22); White Blood Count 10.58 K/ul (4.8-10.8)
[2021-08-31 07:02] LABS: BUN Creatinine Ratio 16.2 (10-20); Creatinine Clr Calc Pharmacy 92.6 ml/min; Est GFR (African American) 109.5 ml/min; Est GFR (Non-African American) 94.5 ml/min; Potassium 4.4 mmol/L (3.5-5.1)
[2021-08-31] MEDS: APIXABAN 5 MG TABLET PO SCH (08:13)
[2021-08-31] MEDS: MAGNESIUM OXIDE 400 MG TAB PO SCH (08:14)
[2021-08-31] MEDS: CHOLECALCIFEROL 1,000 UNITS 25 MCG TAB PO SCH (08:14)
[2021-08-31] MEDS: CALCIUM 600MG + VIT D 400 IU TAB PO SCH (08:15)
[2021-08-31] MEDS ORDERED: dilTIAZem HCL 120 MG CAPCR PO SCH (09:00)
[2021-08-31] MEDS ORDERED: FERROUS SULFATE 325 MG TAB PO SCH (09:00)
[2021-08-31] MEDS: AZITHROMYCIN 250 MG TAB PO SCH (09:31)
[2021-08-31 09:56] LABS: Anti Nuclear Antibody Screen NEGATIVE (NEGATIVE)
[2021-08-31] MEDS: FLUTICASONE/VILANTEROL 200/25MCG 14 PUFFS/INHALER INH SCH (10:06)
[2021-08-31] MEDS: predniSONE 20 MG TAB PO SCH (10:48)
--- NOTE | 2021-08-31 11:42 | Cardiology Progress Note ---
Date of Service August 31, 2021 Assessment & Plan (1) Atrial flutter: (2) RANDHAWA (dyspnea on exertion): (3) Chest discomfort: (4) Elevated troponin: Plan 1. Atrial flutter: She developed typical atrial flutter after presentation, although there is a possibility she had atrial fibrillation on presentation that resolved before being placed on telemetry but that must have been made on clinical grounds by somebody at the front office director. She does not really recall having these sensations before this hospitalization but she is not very symptomatic and was minimally aware of the termination of the arrhythmia. Her atrial size appears large on electrocardiography, possibly due to chronic lung disease, although by my review of her echocardiogram did not seem particularly large and neither did her right heart. I do not know her AF burden, it would be helpful potentially to know that and I have suggested a 30-day event recorder however due to insurance issues she may not want to do that. We do not need to arrange that before discharge. I would continue diltiazem and Eliquis for now. 2. Dyspnea on exertion: She has a number of reasons to have shortness of breath including her underlying lung disease, possible pneumonia, as well as possible intermittent atrial fibrillation or flutter that she does not feel as palpitations. We would need to monitor her for the frequency of these arrhythmias in the future. 3. Shoulder and back discomfort: I agree this is almost certainly noncardiac although she did have an elevated troponin. 4. Elevated troponin: Her presenting troponin was minimally elevated to around 45, a second troponin the next morning had dropped back down to 17, it is possible that she was in an arrhythmia on presentation or simply stressed which would explain the small elevation. The trend however is not worrisome and I do not think I would pursue further evaluation at this time. She does get her medical care from Dr. Rudd in our [place] office, Dr. Champagne goes to that office and I will arrange follow-up with him. She is agreeable to this. I will plan on follow-up in about 1 month, I will place that in her discharge instructions. Admission and Anticipated Discharge Date Admission Date: August 30, 2021 Subjective She is feeling quite well today. Her arrhythmia terminated around noon yesterday but she really had no clear symptoms of that change. No palpitations since. Shoulder and back discomfort improved. She is tolerating her medications well including diltiazem and Eliquis. Physical Exam Physical Exam: Constitutional: Alert, cooperative and in no distress. HEENT: Unremarkable Neck: No jugular venous distention, carotid pulses are normal and equal bilaterally without bruits. Pulmonary: Clear to auscultation bilaterally. Cardiac: Regular rhythm with no murmur, gallop or rub. Abdomen: Soft, nontender with normal bowel sounds. Extremities: No edema. Distal pulses intact. Neurologic: No focal findings. Gait was not tested. Skin: No rash, ecchymoses or petechiae. Results & Data ([facility]) Vital Signs (Past 12 Hours) Vital Signs Temp Pulse Resp BP Pulse Ox O2 Del Method 08/31/21 11:29 36.7 C 72 16 108/68 95 Room Air 08/31/21 08:00 Room Air 08/31/21 07:52 36.9 C 65 18 104/69 94 Room Air 08/31/21 03:43 36.5 C 76 18 92/53 L 95 Room Air 08/30/21 23:36 36.5 C 71 18 98/63 L 95 Room Air Laboratory Results CBC 08/31/21 Range/Units 06:16 WBC 10.58 (4.8-10.8) K/ul RBC 4.49 (3.93-5.22) M/uL Hgb 10.1 L (12.0-16.0) g/dl Hct 33.7 L (34.1-44.9) % Plt Count 379 (130-400) K/uL Comprehensive Metabolic Panel 08/31/21 Range/Units 06:16 Sodium 138 (136-145) mmol/L Potassium 4.4 (3.5-5.1) mmol/L Chloride 106 (98-107) mmol/L Carbon Dioxide 28 (21-32) mmol/L BUN 12 (6-23) mg/dl Creatinine 0.74 (0.6-1.2) mg/dl Glucose 79 (70-99(Fasting)) mg/dl Calcium 8.0 L (8.5-10.1) mg/dl Intake and Output 08/30/21 08/31/21 08/31/21 22:59 06:59 14:59 Intake Total 490 / 1690 Output Total 1000 / 1350 350 / 1350 600 / 600 Balance -510 / 340 -350 / 340 -600 / -600 Intake: IV 70 / 1270 cefTRIAXone SODIUM 2,000 mg In 70 / 70 Dextrose 5% 50 ml @ 100 mls/hr IV Q24H [facility] Rx#:[id number] Oral 420 / 420 Output: Urine 1000 / 1350 350 / 1350 600 / 600 Other: Other Intake Source sips Weight 72.2 kg Weight Measurement Method Built in [facility] Diagnostic Findings Telemetry: No further atrial arrhythmias since noon yesterday. Echocardiogram: Essentially normal. PG Care Time/CCT Total # of Minutes Spent Total Time Spent with Patient: Total time spent is greater than 50% in coordination of care (as documented) at patient's floor/unit and/or counseling patient: Coding Level of Care Code 15576 Subseq Hosp Care Lvl 2 Diagnoses Atrial flutter I48.3 Atrial flutter type: typical RANDHAWA (dyspnea on exertion) R06.09 Chest discomfort R07.89 Elevated troponin R77.8 (1) Atrial flutter Atrial flutter type: typical Qualified Code(s): I48.3 - Typical atrial flutter
--- NOTE | 2021-08-31 12:35 | Discharge Summary ---
Date of Service August 31, 2021 Admission HPI Per Admitting Provider Alicia Erazo is a 51-year-old female with previously steroid dependent asthma who presents to the ER with shortness of breath and generalized pain. She has visited [place] [facility] x3 times in the last 2 weeks for the same symptoms but reports getting worse shortness of breath on exertion. This is despite being treated with doxycycline for possible pneumonia since 08/24. Her main concern however is the pain in her shoulders and back. Associated weakness and fatigue. This has been progressively getting worse over the last month since she has been weaning her steroids down. She had been taking 20-30mg/day but it was only after going below 10mg/day she really noted a significant increase in her pain. She denies any headaches, chest pain, nasal congestion, sinus pain, fevers or chills. She reports her shortness of breath does not feel like her usual asthma exacerbations and from that stand point she has been doing better since starting Dupixent. She was started on Dupixent and weaning off steroids due to a jaw i nfection diagnosed in [place] in March. The jaw infection was treted surgically and she is completely over this now. She is tachycardiac and d-dimer is elevated to 1190 however she reports just recently having a CT angiogram for a pulmonary embolism in [place] on Monday which was negative. In the ER CXR showed a possible pneumonia in the left base, WBC was elevated, however procalcitonin was negative. Given failed outpatient treatment with doxycycline she was referred to medicine for admission and ongoing management of pneumonia, tachycardia and dyspnea on exertion. Principal Diagnosis Pneumonia Suspected polymyalgia rheumatica (PMR) Atrial flutter with rapid ventricular rate Iron deficiency anemia Discharge Exam Constitutional WD/WN, vitals as above Eyes + anicteric sclerae; normal pupil size ENMT external ear and nose normal, oropharynx normal Respiratory normal respiratory effort, lungs clear to auscultation Cardiovascular RRR, no murmur, no edema Extremities: normal capillary refill; no calf tenderness and no pedal edema Gastrointestinal (Abdomen) normal bowel sounds, soft, nontender, no hepatosplenomegaly Musculoskeletal no cyanosis or clubbing, extremities motor strength 5/5 Skin no rashes, warm and dry Neurologic moves all extremities and awake; not confused Psychiatric A+Ox3, euthymic affect Lymphatic no cervical or axillary lymphadenopathy Discharge Data Allergies Allergy/AdvReac Type Severity Reaction Status Date / Time Egg Derived Allergy Severe Allergy Verified 08/29/21 16:51 testing with high reactivity in 2012 mepolizumab Allergy Severe Hives / Verified 08/29/21 16:51 paroxysmal bronchospasm lactose Allergy Mild Allergy Verified 08/29/21 16:51 testing in 2013 mouse protein Allergy Unknown RESPIRATORY Verified 08/29/21 16:51 DISTRESS sorbitan esters Allergy Unknown RESPIRATORY Verified 08/29/21 16:51 DISTRESS Consultations 08/29/21 16:25 ED Decision to Admit Stat 08/30/21 07:22 Consult Cardiology Routine Hospital Course (1) Atrial flutter: Alicia Erazo is a 51 year old female admitted to [facility] from August 29 to 2021 due to back pain and shortness of breath. She was diagnosed with possible bacterial pneumonia treated with ceftriaxone and azithromycin during her inpatient stay and will continue on Augmentin and azithromycin as prescribed below. Suspect her back/shoulder pain is most likely due to polymyalgia rheumatica rheumatica given elevated inflammatory markers and significant response to steroids (although notably she is relatively young for this). This was treated with 1 dose of Solu-Medrol 40 mg IV and then switched to 20 mg prednisone daily with excellent response. She will continue to wean the prednisone herself as she had been doing for her asthma but now with the knowledge her pain is likely due to weaning of the steroids. Advised to follow- up with her primary care physician for ongoing management of this with a possible rheumatology referral. Please follow-up with her EZEKIEL screen for other possible rheumatological disorders as a cause of her pain. During her stay she incidentally changed her rhythm while on a monitor to atrial flutter with rapid ventricular rate. Unclear if this was contributing towards her symptoms of shortness of breath however she appeared relatively asymptomatic with a heart rate in the 130s. She was seen by cardiology and started on Eliquis for stroke risk reduction and diltiazem for rate control. She spontaneously converted back to normal sinus rhythm after about 6 hours with IV fluids and magnesium sulfate replacement. She was advised to follow-up with cardiology regarding ongoing management of this. Given the cost of self-pay for Eliquis she was advised to contact the pharmaceutical company in the next month to see whether she can reduce the cost of this. Initially she was given a coupon for a free trial for the first month. She was also incidentally noted to be anemic. Transferrin saturation 6%. She was advised to take ferrous sulfate 325 mg p.o. every other day. Further work- up of iron deficiency anemia deferred to her primary care physician. If not recently had a colonoscopy would advise this. (2) Polymyalgia rheumatica: (3) Pneumonia: (4) Shortness of breath: (5) Severe persistent asthma dependent on systemic steroids: (6) Microcytic anemia: Total Time Total Time Spent Total Time Spent (In Minutes): 45 Discharge Plan Discharge Items Patient Disposition: Home - Self-Care Reason For Visit: PNEUMONIA Discharge Diagnosis: Polymyalgia Rheumatica (PMR) Pneumonia Atrial flutter with rapid ventricular response Activity: Resume your previous activity Non-emergency contact: Primary Care Provider Call non-emergency contact if: you have any medication questions and your symptoms worsen Follow-up/Referrals: Yaya Sheltno MD [Physician] - (2 weeks a. flutter follow up) Ham Rudd MD [Primary Care Provider] - 09/10/21 3:00 pm (Please follow up with Dr. Rudd on Monday09/10/21 at 3:00 pm. Please arrive to the office at 2:45 pm for your appointment. If you are unable to keep this appointment, please call the office to reschedule at [phone].) Ventura Champagne MD [Physician] - 10/01/21 2:45 pm Anshul Dasilva MD [Physician] - (Myalgias, suspected PMR) Diet: Regular Addtl Attending Provider Instructions: You were admitted to [facility] from August 29 to 2021 due to back pain and shortness of breath. You were diagnosed with bacterial pneumonia treated with ceftriaxone and azithromycin during her inpatient stay and will continue on Augmentin and azithromycin as prescribed below. Suspect your back pain is most likely due to polymyalgia rheumatica rheumatica given elevated inflammatory markers and significant response to steroids. This was treated with 1 dose of Solu-Medrol 40 mg IV and then switched to 20 mg prednisone daily. Please continue to wean this as able for the smallest dosage possible without recurrence of your symptoms. Please follow-up with your primary care physician regarding this. You also noted to have atrial flutter with rapid ventricular rate during her hospital stay. Unclear if this was contributing towards your symptoms of shortness of breath. You were seen by cardiology and started on Eliquis for stroke risk reduction and diltiazem for rate control. You converted back to normal sinus rhythm after about 6 hours. Please follow-up with cardiology regarding ongoing management of this. Please contact the pharmaceutical company within the next month to see if you can get a discount on the Eliquis. You also noted to have low hemoglobin and small red blood cells consistent with iron deficiency anemia. Recommend taking ferrous sulfate as prescribed below every other day to help with this. Please follow-up with your primary care physician to consider colonoscopy if this has not recently been performed for further work-up of why you have an iron deficiency anemia. Pending Studies at Discharge: No Stand-Alone Forms: My [facility] [employer], Smoking Cessation Medications and DC Order Prescriptions: New azithromycin 250 mg Tablet 250 mg PO QAM 2 Days Qty: 2 0RF diltiazem HCl 120 mg Capsule,Extended Release 24hr 120 mg PO QAM Qty: 30 0RF ferrous sulfate 325 mg (65 mg iron) Tablet,Delayed Release (Dr/Ec) 325 mg PO Q48H Qty: 15 0RF prednisone 20 mg Tablet 20 mg PO QAM Qty: 30 0RF Eliquis 5 mg Tablet 5 mg PO BID Qty: 60 0RF amoxicillin-pot clavulanate 875-125 mg tablet 1 tab PO BID 3 Days Qty: 6 0RF Continued epinephrine 0.3 mg/0.3 mL auto-injector 0.3 mg IM Q4H PRN (Reason: anaphylaxis) Qty: 2 3RF Dupixent Syringe 300 mg/2 mL syringe 300 mg subcut .COMPLEX Qty: 12 3RF Rx Instructions: INJECT 300 mg subcut EVERY 2 WEEKS; fluticasone propion-salmeterol [Wixela Inhub] 500-50 mcg/dose blister with device 1 inh inhalation BID Qty: 60 5RF albuterol sulfate 90 mcg/actuation HFA aerosol inhaler 2 puff INHALATION Q6H PRN (Reason: SOB) Qty: 18 5RF cyclobenzaprine 5 mg tablet 5 mg PO TID PRN (Reason: Muscle Spasm) cholecalciferol (vitamin D3) 25 mcg (1,000 unit) capsule 100 mcg PO DAILY tizanidine 4 mg tablet 4 mg PO BID PRN (Reason: Muscle Spasm) lidocaine 5 % adhesive patch,medicated 1 patch topical DAILY calcium carbonate-vitamin D3 [Calcium 600 + D(3)] 600 mg-5 mcg (200 unit) Tablet 1 tab PO DAILY magnesium oxide 500 mg Capsule 500 mg PO TID ipratropium-albuterol 0.5 mg-3 mg(2.5 mg base)/3 mL Solution For Nebulization 3 ml INHALATION QID PRN (Reason: Shortness Of Breath Or Wheezing) Discontinued prednisone 1 mg tablet See Rx Instructions .ROUTE .COMPLEX Qty: 70 0RF Rx Instructions: 4 po daily x 1 week then 3 po daily x 1 week then 2 po daily x1 week then 1 po daily x 1 week then dc; doxycycline hyclate 100 mg capsule 100 mg PO BID Rx Instructions: ordered 08/24/21 take for 7 days Discharge Orders: Discharge Order (Routine); Ordered 08/31/21 Ordered By: Alejandro Kuhn Admission Data Admit Date/Time: 08/30/21 13:01 Attending Provider: Alejandro Kuhn Admit Provider: Alejandro Kuhn Primary Care Provider: Ham Rudd Other Providers: Alejandro Kuhn ; Yaya Shelton Other Interventions: Discharge Summary Assessment (RN) Last Done: 08/31/21 13:05 Coding Level of Care Code D/C DAY MANAGEMENT >30 MINS Diagnoses Atrial flutter I48.3 Atrial flutter type: typical Polymyalgia rheumatica M35.3 Pneumonia J18.9 Shortness of breath R06.02 Severe persistent asthma dependent on systemic steroids J45.50; Z79.52 Microcytic anemia D50.9
== END 2021-08-31 13:45 | disposition home or self-care (01) | DRG 194 ==
LOC: ED 13:29 → EDINP 13:29 → 2S 18:32